=== PATIENT | male | born 1940 | race Caucasian/White ===

== ENCOUNTER 2016-11-13 07:40 | Emergency (ER) | payer OTHER ==
[~2016-11-13] VITALS: Ht 182.9 cm; Wt 108.0 kg
[~2016-11-13 07:40] MED LIST: AMIT10 PO; BACL10TA PO; BUSP10 PO; CALC600T34 PO; CETI10 PO; CYMB30CA PO; DOCU100T9 PO; FOLI1 PO; LOVA20TA PO; METH2.5 PO; NEUR600T PO; OMEP20CA5 PO; OXYC10TA8 PO; PRED5 PO; TAB-TAB PO; [UNRECOGNIZED DRUG - CODE]
[2016-11-13 07:52] VITALS: BP 158/93; PULSE 73; RESP 18; TEMP 98.1; O2SAT 98
[2016-11-13] MEDS ORDERED: PARO1TAB71 PO (08:03)
[2016-11-13] MEDS ORDERED: GABA600T PO (08:03)
[2016-11-13] MEDS ORDERED: METH2.5T PO (08:03)
[2016-11-13] MEDS ORDERED: GABA300C5 PO (08:03)
[2016-11-13] MEDS ORDERED: FENT50VI (08:03)
[2016-11-13] MEDS ORDERED: FOLI1TAB6 PO (08:03)
[2016-11-13] MEDS ORDERED: MIRA25TA PO (08:03)
[2016-11-13] MEDS ORDERED: OMEP20TA PO (08:03)
[2016-11-13] MEDS ORDERED: LOVA20TA PO (08:03)
[2016-11-13] MEDS ORDERED: BUSP10TA PO (08:03)
[2016-11-13] MEDS ORDERED: LIDOCAINE HCL 1% 30 ML VIAL INFIL ONE (08:15)
[2016-11-13] MEDS ORDERED: LIDOCAINE HCL 1% 50 ML VIAL INFIL ONE (08:15)
[2016-11-13] MEDS ORDERED: TETANUS/DIPHTHERIA TOXOID ADULT 0.5 ML VIAL IM ONE (08:15)
--- NOTE | 2016-11-13 08:17 | PD ---
HPI Chief Complaint: Fall Time Seen by Provider: 07:57 Travel History International Travel<30 days: No Contact w/Intl Traveler<30days: No Traveled to known affect area: No History of Present Illness HPI Patient is a 76-year-old male who presents to emergency room with complaints of lip laceration. Patient reports that he fell out of bed last night and reports that his lip hit the corner of his night stand causing a laceration. Reports that this event occurred around 2:30 AM in the morning. Reports that he was able to control the bleeding on his own. Patient currently is not on any blood thinners. Patient denies any headache or dizziness at this time. Patient with no other complaints. Tetanus is not up-to-date. PFSH Past Medical History Arthritis: Yes Anxiety: Yes Cancer: No Cardiovascular Problems: No High Cholesterol: Yes Diabetes: No Endocrine: No Gastrointestinal Disorders: Yes GERD: Yes Glaucoma: No Genitourinary: Yes Hepatitis: No Hiatal Hernia: No Hypertension: Yes Immune Disorder: No Implanted Vascular Access Dvce: Yes Kidney Stones: Yes Musculoskeletal: Yes (CHRONIC BACK PAIN) Neurologic: No Psychiatric: No Reproductive: No Respiratory: No Thyroid Disease: No Tetanus Vaccination: > 5 Years Past Surgical History Abdominal Surgery: Yes (ABDOMINAL PANNICULECTOMY) Body Medical Devices: HORACE EYE LENS; DIANA LEFT FEMUR Eye Surgery: Yes (HORACE CATARACT ) Joint Replacement: Yes (BILATERAL PARTIAL KNEE) Neurologic Surgery: Yes (LUMBAR LAMINECTOMY 1981) Pacemaker: No Thoracic Surgery: Yes (1982 - L3 AND L4 DISCS SHAVED) Other Surgery: Yes Social History Alcohol Use: Yes (WINE DAILY) Tobacco Use: No Substance Use: No Allergies-Medications (Allergen,Severity, Reaction): Coded Allergies: No Known Allergies (Verified , 11/13/16) Reported Meds & Prescriptions Reported Meds & Active Scripts Active Reported Myrbetriq (Mirabegron) 25 Mg Tab 25 Mg PO DAILY Gabapentin 300 Mg Cap 300 Mg PO HS Gabapentin 600 Mg Tab 600 Mg PO TID Methotrexate 2.5 Mg Tab 17.5 Mg PO Q7D Folic Acid 1 Mg Tablet 1 Tab PO DAILY Fentanyl 1,000 Mcg/20 ml Vial (Fentanyl Citrate/Pf) 50 Mcg/1 Ml Vial Paroxetine (Paroxetine HCl) 10 Mg Tab 10 Mg PO DAILY Buspirone (Buspirone HCl) 10 Mg Tab 10 Mg PO BID Lovastatin 20 Mg Tab 20 Mg PO DAILY Omeprazole 20 Mg Tab 20 Mg PO DAILY Review of Systems General / Constitutional: No: Fever Eyes: No: Visual changes HENT: No: Headaches Cardiovascular: No: Chest Pain or Discomfort Respiratory: No: Shortness of Breath Gastrointestinal: No: Abdominal Pain Genitourinary: No: Dysuria Musculoskeletal: No: Pain Skin: Positive Other (lip laceration), No Rash Neurologic: No: Weakness Psychiatric: No: Depression Endocrine: No: Polydipsia Hematologic/Lymphatic: No: Easy Bruising Physical Exam Narrative GENERAL: Mild distress SKIN: Focused skin assessment warm/dry. HEAD: Atraumatic. Normocephalic. EYES: Pupils equal and round. No scleral icterus. No injection or drainage. Patient with right-sided periorbital bruising, no periarticular bruising ENT: No nasal bleeding or discharge. Mucous membranes pink and moist. Patient with no bleeding from nares, patient with a through and through 1.5 cm lip laceration to his upper lips NECK: Trachea midline. No JVD. CARDIOVASCULAR: Regular rate and rhythm. No murmur appreciated. RESPIRATORY: No accessory muscle use. Clear to auscultation. Breath sounds equal bilaterally. GASTROINTESTINAL: Abdomen soft, non-tender, nondistended. Hepatic and splenic margins not palpable. MUSCULOSKELETAL: No obvious deformities. No clubbing. No cyanosis. No edema. NEUROLOGICAL: Awake and alert. No obvious cranial nerve deficits. Motor grossly within normal limits. Normal speech. PSYCHIATRIC: Appropriate mood and affect; insight and judgment normal. Data Data Last Documented VS Vital Signs Date Time Temp Pulse Resp B/P Pulse Ox O2 Delivery O2 Flow Rate FiO2 11/13/16 07:52 98.1 73 18 158/[address] Brain W/O Iv Contrast(Rout) (11/13/16 08:01) Ct Cerv Spine W/O Contrast (11/13/16 08:01) Ct Facial Bones W/O Iv Cont (11/13/16 08:01) Tetanus/Diphtheria Tox Adult (Tetanus/Di (11/13/16 08:15) ^ Irrigate (11/13/16 08:01) Lidocaine Pf 1% Inj (Xylocaine-Mpf 1% In (11/13/16 08:30) Cephalexin (Keflex) (11/13/16 09:45) MDM Medical Decision Making Medical Screen Exam Complete: Yes Emergency Medical Condition: Yes Interpretation(s) Vital Signs Date Time Temp Pulse Resp B/P Pulse Ox O2 Delivery O2 Flow Rate FiO2 11/13/16 07:52 98.1 73 18 158/93 98 Differential Diagnosis Lip laceration, intracranial hemorrhage, cervical spine fracture though unlikely , facial fractures Narrative Course 76-year-old female who presents to emergency room with complaints of lip laceration. Patient reports that he woke up from sleep after he fell out of bed and noticed bleeding to his lip. Reports that he must of hit his lip on the nightstand. Patient is currently not on any anticoagulants at this time. Plan to obtain ct of facial bone, head and neck. Will update tetanus and suture facial wound Last Impressions Maxillofacial CT 11/13/16800 Signed Impressions: Service Date/Time: Friday, November 13, 2016 08:13 - CONCLUSION: Negative for facial bone fracture. Brian Jones MD FACR Head CT 11/13/16800 Signed Impressions: Service Date/Time: Sunday, November 13, 2016 08:13 - CONCLUSION: 1. No acute intracranial abnormality. Edison Mccullough MD lip laceration repaired, he will return to PCP or to ER in 48 hours for wound check. Absorbable sutures were placed. He will return to ER if symptoms worsen or progress Procedures Procedure Narrative LACERATION LOCATION: upper lip LENGTH: 1.5 NUMBER OF STITCHES/SHI: 10 simple interrupted sutures REPAIR: The area of the laceration was prepped with Betadine and sterilely draped. The laceration was infiltrated with 1% Lidocaine. The wound was copiously irrigated and explored without evidence of foreign body, tendon injury or neurovascular injury. The wound was closed using simple interrupted sutures. This was a multiple layer repair. A sterile dressing was applied. The patient was advised to keep the dressing clean and dry. Patient tolerated the procedure well. I did use 5.0 chromic gut for the deep wound and inner mouth and 5.0 vicryl to the surface of the lip Diagnosis Primary Impression: Closed head injury Qualified Code: S09.90XA - Closed head injury, initial encounter Additional Impression: Lip laceration Qualified Code: S01.511A - Lip laceration, initial encounter Patient Instructions: Narcotic given in the ED Additional Instructions: Return to the emergency room or to primary care doctor in 2 days for wound check Return to ER if symptoms worsen or if you develop any signs of infection Please take all antibiotics as prescribed Please do not drink from a straw, do not drink hot soup/fluids Med/Other Pt SpecificInfo: Prescription(s) given Scripts Cephalexin (Keflex)500 Mg Thu593 Mg PO Q6H 7 Days Ref 0 Prov:Patricia Solis DO 11/13/16 Disposition: 01 DISCHARGE HOME Condition: Stable Patricia Solis DO Nov 13, 2016 08:17
[2016-11-13] MEDS ORDERED: LIDOCAINE HCL 1% PF 30 ML VIAL INFIL ONE (08:30)
--- NOTE | 2016-11-13 09:08 | RADHPO ---
EXAM DATE/TIME: 11/13/2016 08:13 [facility] COMPARISON: No previous studies available for comparison. INDICATIONS : Trauma. Fell out of bed this morning and hit his head and face. Cephalgia. Right facial pain. Righ t neck pain RADIATION DOSE: 25.71 CTDIvol (mGy) MEDICAL HISTORY : Hypertension. SURGICAL HISTORY : Dental implants. ENCOUNTER: Initial ACUITY: 1 day PAIN SCORE: 8/10 LOCATION: Right facial TECHNIQUE: Volumetric scanning of the facial bones was performed. Using automated exposure control and adjustme nt of the mA and/or kV according to patient size, radiation dose was kept as low as reasonably achiev able to obtain optimal diagnostic quality images. FINDINGS: ORBITS: The orbital and infraorbital osseous structures are intact. The retroconal structures have a normal configuration. No radiopaque foreign bodies are seen. NASAL BONE: The nasal bone and maxillary spine are intact ZYGOMATIC ARCHES: Symmetric without evidence of fracture. SINUSES: The maxillary, ethmoid and frontal sinuses are intact. No air-fluid levels seen. NASAL CAVITY: The nasal septum is intact and midline. The lacrimal ducts are intact. SOFT TISSUES: No radiopaque foreign bodies seen. No soft-tissue swelling is seen. INTRACRANIAL: No intracranial air seen. CRIBIFORM PLATE: Grossly intact. CONCLUSION: Negative for facial bone fracture. Brian Jones MD FACR on November 13, 2016 at 9:04 Board Certified Radiologist. This report was verified electronically.
--- NOTE | 2016-11-13 09:22 | RADHPO ---
EXAM DATE/TIME: 11/13/2016 08:13 [facility] COMPARISON: No previous studies available for comparison. INDICATIONS : Trauma. Fell out of bed this morning and hit his head and face. Cephalgia. Right facial pain. Righ t neck pain RADIATION DOSE: 26.50 CTDIvol (mGy) MEDICAL HISTORY : Hypertension. SURGICAL HISTORY : Dental implants. ENCOUNTER: Initial ACUITY: 1 day PAIN SCALE: 8/10 LOCATION: Right neck TECHNIQUE: Volumetric scanning of the cervical spine was performed. Multiplanar reconstructions in the sagittal, coronal and oblique axial planes were performed. Using automated exposure control and adjustment o f the mA and/or kV according to patient size, radiation dose was kept as low as reasonably achievable to obtain optimal diagnostic quality images. FINDINGS: There are extensive degenerative changes in the cervical spine with reversal of the cervical lordosis . There are degenerative changes at C1 and C2. Dens is intact. C2-C3: Moderate uncinate ridging is present with moderate left-sided neural foramina encroachment. C3-C4: Moderate uncinate ridging is present with moderate spinal stenosis. Neural foramina are adequate. C4-C5: There is mild spinal stenosis with minimal bilateral neural foraminal encroachment worse on the right than the left. C5-C6: Moderate uncinate ridging is present with bilateral neural foraminal encroachment and moderate spinal stenosis. C6-C7: Moderate uncinate ridging is present with moderate bilateral neural foraminal encroachment. C7-T1: The bony spinal canal is normal in size. No evidence of disc bulge or herniation. The neural forami na are bilaterally patent. Moderate calcifications are seen in both carotids. CONCLUSION: 1. Extensive degenerative changes. 2. Cervical spinal stenosis appears radiographically significant at C3-C4 and C5-C6. Brian Jones MD FACR on November 13, 2016 at 9:07 Board Certified Radiologist. This report was verified electronically.
--- NOTE | 2016-11-13 09:27 | RADHPO ---
EXAM DATE/TIME: 11/13/2016 08:13 [facility] COMPARISON: No previous studies available for comparison. INDICATIONS : Trauma. Fell out of bed this morning and hit his head and face. Cephalgia. Right facial pain. Righ t neck pain. RADIATION DOSE: 68.88 CTDIvol (mGy) MEDICAL HISTORY : Hypertension. SURGICAL HISTORY : Dental implants. ENCOUNTER: Initial ACUITY: 1 day PAIN SCALE: 8/10 LOCATION: cranial TECHNIQUE: Multiple contiguous axial images were obtained of the head. Using automated exposure control and adj ustment of the mA and/or kV according to patient size, radiation dose was kept as low as reasonably a chievable to obtain optimal diagnostic quality images. FINDINGS: CEREBRUM: The ventricles are normal for age. No evidence of midline shift, mass lesion, hemorrhage or acute in farction. No extra-axial fluid collections are seen. POSTERIOR FOSSA: The cerebellum and brainstem are intact. The 4th ventricle is midline. The cerebellopontine angle i s unremarkable. EXTRACRANIAL: The visualized portion of the orbits is intact. SKULL: The calvaria is intact. No evidence of skull fracture. CONCLUSION: 1. No acute intracranial abnormality. Edison Mccullough MD on November 13, 2016 at 8:52 Board Certified Radiologist. This report was verified electronically.
[2016-11-13] MEDS ORDERED: CEPH-460 PO (09:39)
[2016-11-13] MEDS ORDERED: CEPHALEXIN MONOHYDRATE 500 MG CAP PO ONE (09:45)
== END 2016-11-13 09:50 | disposition home or self-care (01) ==
LOC: PHEFT 07:40
DX: S01.511A Laceration without foreign body of lip, initial encounter (principal); W06.XXXA Fall from bed, initial encounter; Z23 Encounter for immunization
CPT/HCPCS: 12051; 70450; 70486; 72125; 90471; 90714

== ENCOUNTER 2017-01-25 15:58 | Observation (INO) | payer MEDICARE ==
[~2017-01-25] VITALS: Ht 182.9 cm; Wt 102.0 kg
[~2017-01-25 15:58] MED LIST changes: -AMIT10 PO; -BACL10TA PO; -BUSP10 PO; +BUSP10TA PO; -CALC600T34 PO; +CEPH-460 PO; -CETI10 PO; -CYMB30CA PO; -DOCU100T9 PO; +FENT50VI; -FOLI1 PO; +FOLI1TAB6 PO; +GABA300C5 PO; +GABA600T PO; -METH2.5 PO; +METH2.5T PO; +MIRA25TA PO; -NEUR600T PO; -OMEP20CA5 PO; +OMEP20TA PO; -OXYC10TA8 PO; +PARO1TAB71 PO; -PRED5 PO; -TAB-TAB PO; -[UNRECOGNIZED DRUG - CODE]
[2017-01-25 16:02] VITALS: BP 156/76; PULSE 92; RESP 18; TEMP 98; O2SAT 95
[2017-01-25 16:10] VITALS: BP 156/76; PULSE 90; RESP 18; TEMP 98; O2SAT 98
[2017-01-25] MEDS ORDERED: SODIUM CHLORIDE 0.9% FLUSH 10 ML FLUSH IVF PRN (16:15)
--- NOTE | 2017-01-25 16:38 | RADRPT ---
EXAM DATE/TIME: 01/25/2017 16:16 [facility] COMPARISON: No previous studies available for comparison. INDICATIONS : Chest pain. MEDICAL HISTORY : None. SURGICAL HISTORY : None. ENCOUNTER: Initial ACUITY: 1 day PAIN SCORE: 7/10 LOCATION: Chest, midline. FINDINGS: The lungs are clear without infiltrate, nodule, or mass. There is no appreciable pleural effusion fo r technique. Heart and mediastinum are unremarkable. CONCLUSION: No acute cardiopulmonary disease. Chano Galvez MD on January 25, 2017 at 16:36 Board Certified Radiologist. This report was verified electronically.
[2017-01-25] MEDS ORDERED: NITROGLYCERIN 2% OINT 1 GM PACKET TOP ONE (17:00)
[2017-01-25 17:17] LABS: AUTOMATED NEUTROPHIL # 4.3 TH/MM3 (1.8-7.7); BASOPHIL # 0.1 TH/MM3 (0-0.2); BASOPHIL % 0.8 % (0.0-2.0); EOSINOPHIL # 0.2 TH/MM3 (0-0.4); EOSINOPHIL % 2.6 % (0.0-4.0); HEMATOCRIT 31.5 % (39.0-51.0); HEMO FLAGS DIFF FINAL; LYMPH % 14.1 % (9.0-44.0); LYMPHOCYTE # 0.9 TH/MM3 (1.0-4.8); MEAN CELL VOLUME 104.6 FL (80.0-100.0); MEAN CORPUSCULAR HEMOGLOBIN 35.3 PG (27.0-34.0); MEAN CORPUSCULAR HGB CONC 33.8 % (32.0-36.0); MONO % 11.4 % (0.0-8.0); NEUT % 71.1 % (16.0-70.0); PLATELET COUNT 133 TH/MM3 (150-450); RED BLOOD COUNT 3.01 MIL/MM3 (4.50-5.90); RED CELL DISTRIBUTION WIDTH 15.5 % (11.6-17.2); WHITE BLOOD COUNT 6.1 TH/MM3 (4.0-11.0)
[2017-01-25 17:25] LABS: INTERNATIONAL NORMALIZED RATIO 0.9 RATIO; PROTHROMBIN TIME - PATIENT 10.3 SEC (9.8-11.6)
[2017-01-25 17:35] LABS: ALT (GPT) 15 U/L (12-78); ANION GAP 7 MEQ/L (5-15); AST (GOT) 17 U/L (15-37); BICARBONATE 28.4 MEQ/L (21.0-32.0); BLOOD UREA NITROGEN 25 MG/DL (7-18); CHLORIDE 109 MEQ/L (98-107); GLOMERULAR FILTRATION RATE 45 ML/MIN (>89); MAGNESIUM 1.6 MG/DL (1.5-2.5); POTASSIUM 3.6 MEQ/L (3.5-5.1); SODIUM (NA) 144 MEQ/L (136-145)
[2017-01-25 17:39] LABS: ALKALINE PHOSPHATASE 55 U/L (45-117); CREATINE KINASE 268 U/L (39-308); TOTAL BILIRUBIN ADULT 0.4 MG/DL (0.2-1.0)
--- NOTE | 2017-01-25 17:39 | PD ---
HPI Chief Complaint: Chest Pain Time Seen by Provider: 16:48 Travel History International Travel<30 days: No Contact w/Intl Traveler<30days: No Traveled to known affect area: No History of Present Illness HPI 76 y/o male presents with chest pain that started shortly prior to arrival. He was given aspirin and nitroglycerin without significant relief. He does not have history of cardiac history but states he had a stress test with Dr. Navarro who routinely sees his . He denies other concurrent complaints. Quality is pressure. Severity is moderate. Duration is one hour. He presents by ambulance. PFSH Past Medical History Arthritis: Yes Anxiety: Yes Cancer: No Cardiovascular Problems: No High Cholesterol: Yes Diabetes: No Endocrine: No Gastrointestinal Disorders: Yes GERD: Yes Glaucoma: No Genitourinary: Yes Hepatitis: No Hiatal Hernia: No Hypertension: Yes Immune Disorder: No Implanted Vascular Access Dvce: Yes Kidney Stones: Yes Medical other: Yes (GERD) Musculoskeletal: Yes (CHRONIC BACK PAIN, HAS PAIN PUMP) Neurologic: No Psychiatric: No Reproductive: No Respiratory: No Thyroid Disease: No Tetanus Vaccination: < 5 Years Influenza Vaccination: Yes ?: Not Past Surgical History Abdominal Surgery: Yes (ABDOMINAL PANNICULECTOMY) Body Medical Devices: HORACE EYE LENS; DIANA LEFT FEMUR Eye Surgery: Yes (HORACE CATARACT ) Joint Replacement: Yes (BILATERAL PARTIAL KNEE) Neurologic Surgery: Yes (LUMBAR LAMINECTOMY 1981) Pacemaker: No Thoracic Surgery: Yes (1982 - L3 AND L4 DISCS SHAVED) Tonsillectomy: Yes Other Surgery: Yes Social History Alcohol Use: Yes (WINE DAILY) Tobacco Use: No (QUIT 30 YEARS ) Substance Use: No Allergies-Medications (Allergen,Severity, Reaction): Coded Allergies: No Known Allergies (Verified , 11/13/16) Reported Meds & Prescriptions Reported Meds & Active Scripts Active Reported Myrbetriq (Mirabegron) 25 Mg Tab 25 Mg PO DAILY Gabapentin 300 Mg Cap 300 Mg PO HS Gabapentin 600 Mg Tab 600 Mg PO TID Methotrexate 2.5 Mg Tab 17.5 Mg PO Q7D Folic Acid 1 Mg Tablet 1 Tab PO DAILY Fentanyl 1,000 Mcg/20 ml Vial (Fentanyl Citrate/Pf) 50 Mcg/1 Ml Vial Paroxetine (Paroxetine HCl) 10 Mg Tab 10 Mg PO DAILY Buspirone (Buspirone HCl) 10 Mg Tab 10 Mg PO BID Lovastatin 20 Mg Tab 20 Mg PO DAILY Omeprazole 20 Mg Tab 20 Mg PO DAILY Review of Systems Except as stated in HPI: all other systems reviewed are Neg Physical Exam Narrative GENERAL: Well-nourished, well-developed patient. SKIN: Warm and dry. HEAD: Normocephalic and atraumatic. EYES: No injection or drainage. ENT: No nasal drainage noted. NECK: Supple, trachea midline. CARDIOVASCULAR: Regular rate and rhythm RESPIRATORY: Breath sounds equal bilaterally. No accessory muscle use. GASTROINTESTINAL: Abdomen soft, non-tender, nondistended. BACK: Nontender without obvious deformity. NEUROLOGICAL: Awake and alert. Motor and sensory grossly within normal limits. Normal speech. Data Data Last Documented VS Vital Signs Date Time Temp Pulse Resp B/P Pulse Ox O2 Delivery O2 Flow Rate FiO2 01/25/17 16:10 98 Room Air 01/25/17 16:10 98.0 90 18 156/76 Orders Electrocardiogram (01/25/17 16:04) B-Type Natriuretic Peptide (01/25/17 16:04) Ckmb (Isoenzyme) Profile (01/25/17 16:04) Complete Blood Count With Diff (01/25/17 16:04) Comprehensive Metabolic Panel (01/25/17 16:04) Magnesium (Mg) (01/25/17 16:04) Prothrombin Time / Inr (Pt) (01/25/17 16:04) Act Partial Throm Time (Ptt) (01/25/17 16:04) Troponin I (01/25/17 16:04) Lipase (01/25/17 16:04) Chest, Single Ap (01/25/17 16:04) Ecg Monitoring (01/25/17 16:04) Bilateral Bp Monitoring (01/25/17 16:04) Iv Access Insert/Monitor (01/25/17 16:04) Oximetry (01/25/17 16:04) Oxygen Administration (01/25/17 16:04) Sodium Chloride 0.9% Flush (Ns Flush) (01/25/17 16:15) Nitroglycerin 2% Oint (Nitroglycerin 2% (01/25/17 17:00) CKMB (01/25/17 16:20) CKMB% (01/25/17 16:20) Sodium Chlorid 0.9% 500 Ml Inj (Ns 500 M (01/25/17 17:45) Morphine Inj (Morphine Inj) (01/25/17 18:00) Labs Laboratory Tests Test 01/25/17 16:20 White Blood Count 6.1 TH/MM3 Red Blood Count 3.01 MIL/MM3 Hemoglobin 10.6 GM/DL Hematocrit 31.5 % Mean Corpuscular Volume 104.6 FL Mean Corpuscular Hemoglobin 35.3 PG Mean Corpuscular Hemoglobin 33.8 % Concent Red Cell Distribution Width 15.5 % Platelet Count 133 TH/MM3 Mean Platelet Volume 9.2 FL Neutrophils (%) (Auto) 71.1 % Lymphocytes (%) (Auto) 14.1 % Monocytes (%) (Auto) 11.4 % Eosinophils (%) (Auto) 2.6 % Basophils (%) (Auto) 0.8 % Neutrophils # (Auto) 4.3 TH/MM3 Lymphocytes # (Auto) 0.9 TH/MM3 Monocytes # (Auto) 0.7 TH/MM3 Eosinophils # (Auto) 0.2 TH/MM3 Basophils # (Auto) 0.1 TH/MM3 CBC Comment DIFF FINAL Differential Comment Prothrombin Time 10.3 SEC Prothromb Time International 0.9 RATIO Ratio Activated Partial 25.0 SEC Thromboplast Time Sodium Level 144 MEQ/L Potassium Level 3.6 MEQ/L Chloride Level 109 MEQ/L Carbon Dioxide Level 28.4 MEQ/L Anion Gap 7 MEQ/L Blood Urea Nitrogen 25 MG/DL Creatinine 1.52 MG/DL Estimat Glomerular Filtration 45 ML/MIN Rate Random Glucose 131 MG/DL Calcium Level 8.7 MG/DL Magnesium Level 1.6 MG/DL Total Bilirubin 0.4 MG/DL Aspartate Amino Transf 17 U/L (AST/SGOT) Alanine Aminotransferase 15 U/L (ALT/SGPT) Alkaline Phosphatase 55 U/L Total Creatine Kinase 268 U/L Creatine Kinase MB 1.1 NG/ML Troponin I LESS THAN 0.02 NG/ML B-Type Natriuretic Peptide 153 PG/ML Total Protein 6.1 GM/DL Albumin 3.2 GM/DL Lipase 115 U/L [facility] Medical Decision Making Medical Screen Exam Complete: Yes Emergency Medical Condition: Yes Medical Record Reviewed: Yes (past history confirmed) Interpretation(s) EKG is sinus rhythm at 90, right bundle branch block, limited with artifact but no ST elevation consecutively Last 24 hours Impressions Chest X-Ray 01/25/17 1604 Signed Impressions: Service Date/Time: Wednesday, January 25, 2017 16:16 - CONCLUSION: No acute cardiopulmonary disease. Chano Galvez MD CBC & BMP Diagram 01/25/17 16:20 Differential Diagnosis KS, cardiac, PE, musculoskeletal Narrative Course Will check blood work, chest x-ray, and dose with Nitropaste and reevaluate ed workup no acute, agrees to observation Physician Communication Physician Communication dr estrada states to place in [facility] Diagnosis Primary Impression: Chest pain Qualified Code: R07.9 - Chest pain, unspecified type Valencia Ferreira MD Jan 25, 2017 17:39
[2017-01-25] MEDS ORDERED: SODIUM CHLORID 0.9% 500 ML INJ 500 ML IV ONE (17:45)
[2017-01-25 17:51] LABS: CKMB 1.1 NG/ML (0.5-3.6)
[2017-01-25] MEDS ORDERED: MORPHINE SULFATE 4 MG/ML INJ IV PUSH ONE ×2 (18:00→19:15)
[2017-01-25] MEDS ORDERED: PERC10TA27 PO (18:16)
[2017-01-25] MEDS ORDERED: VITATAB11 PO (18:16)
[2017-01-25] MEDS ORDERED: CALC600T25 PO (18:16)
[2017-01-25] MEDS ORDERED: MULT-65 PO (18:16)
[2017-01-25] MEDS ORDERED: FERR325T20 PO (18:16)
[2017-01-25] MEDS ORDERED: STOO100C PO (18:16)
[2017-01-25] MEDS ORDERED: KETO2CRE TOPICAL (18:16)
[2017-01-25 18:31] VITALS: BP 164/86; PULSE 90; RESP 18; O2SAT 99
[2017-01-25 19:27] VITALS: BP 155/85; PULSE 106; RESP 20; O2SAT 96
[2017-01-25 20:53] VITALS: BP 173/87; PULSE 104; RESP 21; TEMP 99.9; O2SAT 95
[2017-01-25] MEDS ORDERED: MORPHINE SULFATE 4 MG/ML INJ IV PRN (22:30)
[2017-01-25] MEDS ORDERED: METOPROLOL TARTRATE 25 MG TAB PO SCH (22:30)
[2017-01-25] MEDS ORDERED: GABAPENTIN 300 MG CAP PO SCH (22:30)
[2017-01-25] MEDS ORDERED: ALUMINUM/MAGNESIUM/SIMETH 30 ML CUP PO PRN (22:45)
[2017-01-25] MEDS ORDERED: PANTOPRAZOLE SOD 40 MG DELAYED RELEASE TAB PO SCH (22:45)
[2017-01-25] MEDS: ACETAMINOPHEN 500 MG CPLT PO PRN (23:07)
[2017-01-25 23:52] VITALS: BP 127/59; PULSE 79; RESP 18; TEMP 98.5; O2SAT 95
[2017-01-26] MEDS: ACETAMINOPHEN/HYDROcodone 325 MG/7.5 MG TAB PO PRN ×2 (02:33→08:10)
[2017-01-26 03:57] VITALS: BP 100/59; PULSE 76; RESP 18; TEMP 98.2; O2SAT 95
[2017-01-26 05:44] VITALS: PULSE 75
[2017-01-26 07:51] VITALS: BP 140/70; PULSE 80; RESP 20; TEMP 96.8; O2SAT 96
[2017-01-26 08:10] VITALS: PULSE 79
[2017-01-26] MEDS ORDERED: PANTOPRAZOLE SOD 40 MG DELAYED RELEASE TAB PO SCH (09:00)
[2017-01-26] MEDS ORDERED: METOPROLOL TARTRATE 25 MG TAB PO SCH (09:00)
[2017-01-26] MEDS: GABAPENTIN 300 MG CAP PO SCH ×2 (09:07→12:30)
[2017-01-26] MEDS ORDERED: KETOROLAC TROMETHAMINE 30 MG/ML (IVP) VIAL ONE (10:37)
[2017-01-26] MEDS: ACETAMINOPHEN 500 MG CPLT PO PRN (12:30)
--- NOTE | 2017-01-26 13:03 | HHI.HP ---
[facility] Primary Care Physician Celestino Aguirre MD Chief Complaint Chest pain History of Present Illness Was is a 72-year-old male that presents to ED with the complaint of a chest discomfort began a little after eating a sandwich yesterday. States the discomfort is still there. Describes as a pressure. He is also been a little short of breath but believes is related to the discomfort. Denies nausea or diaphoresis. States his never had anything like this before. He does follow oral therapist. States he saw Dr. Navarro and had a normal chemical stress test about a month and a half ago. Denies recent illness. Denies fevers or chills. Review of Systems General: Patient denies fevers, chills recent, and recent travel HEENT: Patient denies headache, sore throat, difficulty swallowing. Cardiovascular: Has the chest discomfort as mentioned above. Denies sensation of heart beating rapidly or irregularly. No syncope. Denies diaphoresis. Respiratory: He was a little short of breath. Denies inspirational chest discomfort. Denies coughing wheezing or hemoptysis. GI: Patient denies nausea, vomiting, diarrhea, abdominal pain, bloody stools. Musculoskeletal: Patient denies joint pain or edema. Denies calf pain or edema. Neurovascular: Patient denies numbness, tingling, weakness in extremities. Denies headache. Endocrine: Denies polyuria and polydipsia. Hematologic: Denies easy bruising. Skin: Denies rash or itching. Past Family Social History Allergies: Coded Allergies: No Known Allergies (Verified , 11/13/16) Past Medical History Hyperlipidemia, rheumatoid arthritis, GERD, restless leg syndrome. Denies hypertension, diabetes, and known CAD. Past Surgical History Back surgery, bilateral knees, tonsillectomy, cataracts. Reported Medications Reported Meds & Active Scripts Active Reported Stool Softener (Docusate Sodium) 100 Mg Cap 100 Mg PO DAILY PRN Vitamin B Complex (B-Complex Vitamins) 1 Tab 1 Tab PO DAILY Multi-Vitamin Daily (Multiple Vitamin) 1 Tab Tab 1 Tab PO DAILY Calcium (Calcium Carbonate) 600 Mg Tab 600 Mg PO DAILY Ferosul (Ferrous Sulfate) 325 Mg Tablet 325 Mg PO DAILY Ketoconazole Topical 2% Cream 1 Applic TOPICAL DAILY PRN Percocet (Oxycodone-Acetaminophen) 10-325 mg Tab 1 Tab PO Q6H PRN Myrbetriq (Mirabegron) 25 Mg Tab 25 Mg PO DAILY Gabapentin 600 Mg Tab 600 Mg PO TID Methotrexate 2.5 Mg Tab 17.5 Mg PO Q7D Folic Acid 1 Mg Tablet 1 Tab PO DAILY Fentanyl 1,000 Mcg/20 ml Vial (Fentanyl Citrate/Pf) 50 Mcg/1 Ml Vial PAIN PUMP Paroxetine (Paroxetine HCl) 10 Mg Tab 10 Mg PO DAILY Buspirone (Buspirone HCl) 10 Mg Tab 10 Mg PO BID Lovastatin 20 Mg Tab 20 Mg PO DAILY Omeprazole 20 Mg Tab 20 Mg PO DAILY Active Ordered Medications Current Medications Medications (Trade) Dose Ordered Sig/Francine Route Start Time Stop Time Status Last Admin (NS Flush) 2 ml UNSCH PRN IVF 01/25/17 16:15 01/25/17 23:07 (Neurontin) 600 mg DAILY@,,21 PO 01/26/17 09:00 (Tylenol) 1,000 mg Q8H PRN PO 01/25/17 22:30 01/25/17 23:07 (Clarks 7.5-325 Mg) 1 tab Q6H PRN PO 01/25/17 22:30 01/26/17 02:33 (Morphine Inj) 2 mg Q1H PRN IV 01/25/17 22:30 01/25/17 23:06 (Lopressor) 25 mg BID PO 01/26/17 09:00 (Mag-Al Plus Susp Liq) 30 ml UNSCH PRN PO 01/25/17 22:45 (Protonix) 40 mg DAILY PO 01/26/17 09:00 Family History Denies family history of CAD. Social History Patient quit smoking cigarettes 30 years ago. Has on average 2 glass of wine a day. Denies illicit drugs. Physical Exam Vital Signs Vital Signs Date Time Temp Pulse Resp B/P (MAP) Pulse Ox O2 Delivery O2 Flow Rate FiO2 01/26/17 07:51 96.8 80 20 140/70 (93) 96 01/26/17 05:44 75 01/26/17 03:57 98.2 76 18 100/59 (73) 95 01/25/17 23:52 98.5 79 18 127/59 (81) 95 01/25/17 20:53 99.9 104 21 173/87 (115) 95 01/25/17 19:27 106 20 155/85 (108) 96 Nasal Cannula 2 8/19/17 18:31 90 18 164/86 (112) 99 Room Air 01/25/17 18:10 18 01/25/17 16:10 98 Room Air 01/25/17 16:10 98 Room Air 01/25/17 16:10 98.0 90 18 156/76 (102) 98 Room Air 01/25/17 16:10 89 18 96 Room Air 01/25/17 16:02 98.0 92 18 156/76 (102) 95 Physical Exam GENERAL: This is a well-nourished, well-developed patient, in no apparent distress. Patient speaks in clear complete sentences. Patient is pleasant. HEENT: Head is atraumatic and normocephalic. Neck is supple without lymphadenopathy and trachea is midline. No JVD or carotid bruits. CARDIOVASCULAR: Regular rate and rhythm without murmurs, gallops, or rubs. RESPIRATORY: Clear to auscultation. Breath sounds equal bilaterally. No wheezes , rales, or rhonchi. Chest wall is tender with even lightly palpating over the sternum which worsens his symptoms. No use of accessory muscles. GASTROINTESTINAL: Abdomen is nontender, nondistended. Abdomen soft. No obvious pulsatile mass or bruit. No CVA tenderness. Strong femoral pulses bilaterally. Normal bowel sounds in all quadrants. MUSCULOSKELETAL: Patient is moving upper and lower extremities freely. No calf tenderness or edema, no Homans sign. Strong pulses in upper and lower extremities. NEUROLOGICAL: Patient is alert and oriented. Cranial nerves 2-12 are grossly intact. No focal deficits and speech is clear. SKIN: No rash and turgor is normal. Laboratory Laboratory Tests Test 01/25/17 16:20 01/25/17 20:10 01/25/17 22:58 White Blood Count 6.1 Red Blood Count 3.01 Hemoglobin 10.6 Hematocrit 31.5 Mean Corpuscular Volume 104.6 Mean Corpuscular Hemoglobin 35.3 Mean Corpuscular Hemoglobin Concent 33.8 Red Cell Distribution Width 15.5 Platelet Count 133 Mean Platelet Volume 9.2 Neutrophils (%) (Auto) 71.1 Lymphocytes (%) (Auto) 14.1 Monocytes (%) (Auto) 11.4 Eosinophils (%) (Auto) 2.6 Basophils (%) (Auto) 0.8 Neutrophils # (Auto) 4.3 Lymphocytes # (Auto) 0.9 Monocytes # (Auto) 0.7 Eosinophils # (Auto) 0.2 Basophils # (Auto) 0.1 CBC Comment DIFF FINAL Differential Comment Prothrombin Time 10.3 Prothromb Time International Ratio 0.9 Activated Partial Thromboplast Time 25.0 Blood Urea Nitrogen 25 Creatinine 1.52 Random Glucose 131 Total Protein 6.1 Albumin 3.2 Calcium Level 8.7 Magnesium Level 1.6 Alkaline Phosphatase 55 Aspartate Amino Transf (AST/SGOT) 17 Alanine Aminotransferase (ALT/SGPT) 15 Total Bilirubin 0.4 Sodium Level 144 Potassium Level 3.6 Chloride Level 109 Carbon Dioxide Level 28.4 Anion Gap 7 Estimat Glomerular Filtration Rate 45 Total Creatine Kinase 268 Creatine Kinase MB 1.1 Troponin I LESS THAN 0.02 LESS THAN 0.02 LESS THAN 0.02 B-Type Natriuretic Peptide 153 Lipase 115 Result Diagram: 01/25/17 1620 01/25/17 1620 Imaging Last 48 hours Impressions Chest X-Ray 01/25/17 1604 Signed Impressions: Service Date/Time: Wednesday, January 25, 2017 16:16 - CONCLUSION: No acute cardiopulmonary disease. Chano Galvez MD Course EKGs have sinus rhythm with right bundle branch block. Caprini VTE Risk Assessment Caprini VTE Risk Assessment: Mod/High Risk (score >= 2) Caprini Risk Assessment Model Point Value = 1 Point Value = 2 Point Value = 3 Point Value = 5 Age 41-60 Minor surgery BMI > 25 kg/m2 Swollen legs Varicose veins or History of unexplained or recurrent spontaneous Oral contraceptives or hormone replacement Sepsis (< 1 month) Serious lung disease, including pneumonia (< 1 month) Abnormal pulmonary function Acute myocardial infarction Congestive heart failure (< 1 month) History of inflammatory bowel disease Medical patient at bed rest Age 61-74 Arthroscopic surgery Major open surgery (> 45 min) Laparoscopic surgery (> 45 min) Malignancy Confined to bed (> 72 hours) Immobilizing plaster cast Central venous access Age >= 75 History of VTE Family history of VTE Factor V Leiden Prothrombin [id number] Lupus anticoagulant Anticardiolipin antibodies Elevated serum homocysteine Heparin-induced thrombocytopenia Other congenital or acquired thrombophilia Stroke (< 1 month) Elective arthroplasty Hip, pelvis, or leg fracture Acute spinal cord injury (< 1 month) Prophylaxis Regimen Total Risk Factor Score Risk Level Prophylaxis Regimen 0-1 Low Early ambulation 2 Moderate Order ONE of the following: *Sequential Compression Device (SCD) *Heparin 5000 units SQ BID 3-4 Higher Order ONE of the following medications: *Heparin 5000 units SQ TID *Enoxaparin/Lovenox 40 mg SQ daily (WT < 150 kg, CrCl > 30 mL/min) *Enoxaparin/Lovenox 30 mg SQ daily (WT < 150 kg, CrCl > 10-29 mL/min) *Enoxaparin/Lovenox 30 mg SQ BID (WT < 150 kg, CrCl > 30 mL/min) AND/OR *Sequential Compression Device (SCD) 5 or more Highest Order ONE of the following medications: *Heparin 5000 units SQ TID (Preferred with Epidurals) *Enoxaparin/Lovenox 40 mg SQ daily (WT < 150 kg, CrCl > 30 mL/min) *Enoxaparin/Lovenox 30 mg SQ daily (WT < 150 kg, CrCl > 10-29 mL/min) *Enoxaparin/Lovenox 30 mg SQ BID (WT < 150 kg, CrCl > 30 mL/min) AND *Sequential Compression Device (SCD) Assessment and Plan Assessment and Plan * Chest pain: Patient's discomfort is atypical. Appears to be musculoskeletal in nature. He was seen by Dr. Short of cardiology in the chest pain center and will be discharged home at this time. He was given Toradol IV 1. He is follow back with his primary care physician and oral therapist. * Hyperlipidemia: Continue current medication. * Rheumatoid arthritis: Continue current medication. * Resident leg syndrome: Continue current medication. Patient is stable at this time. He is agreeable to this plan. Brandon Couch Jan 26, 2017 13:03
[2017-01-26] MEDS ORDERED: KETOROLAC TROMETHAMINE 30 MG/ML (IVP) VIAL IV PUSH ONE (15:00)
--- NOTE | 2017-01-26 16:28 | EKG ---
Date Performed: 01/25/2017 Time Performed: 22:23:39 PTAGE: 76 years EKG: SINUS TACHYCARDIA RIGHT BUNDLE BRANCH BLOCK LEFT ANTERIOR FASCICULAR BLOCK ABNORMAL ECG PREVIOUS TRACING : 01/25/2017 20.07 Since previous tracing, no significant change noted DOCTOR: Terrence Short Interpretating Date/Time 01/26/2017 16:28:08
--- NOTE | 2017-01-26 16:31 | EKG ---
Date Performed: 01/25/2017 Time Performed: 20:07:01 PTAGE: 76 years EKG: SINUS TACHYCARDIA POSSIBLE LEFT ATRIAL ENLARGEMENT MARKED LEFT AXIS DEVIATION RIGHT BUNDLE BRANCH BLOCK ABNORMAL ECG PREVIOUS TRACING : 01/25/2017 16.07 Since previous tracing, no significant change noted DOCTOR: Terrence Short Interpretating Date/Time 01/26/2017 16:29:47
--- NOTE | 2017-01-26 16:34 | EKG ---
Date Performed: 01/25/2017 Time Performed: 16:07:41 PTAGE: 76 years EKG: Sinus rhythm RIGHT BUNDLE BRANCH BLOCK LEFT ANTERIOR FASCICULAR BLOCK ABNORMAL ECG PREVIOUS TRACING : 07/26/2011 09.45 Since previous tracing, no significant change noted DOCTOR: Terrence Short Interpretating Date/Time 01/26/2017 16:33:12
[2017-01-27] MEDS ORDERED: TOLTERODINE TARTRATE 2 MG CAP LA PO SCH (09:00)
== END 2017-01-26 16:26 | disposition home or self-care (01) ==
LOC: NEPC 15:58 → NEDA 18:15 → NEPGCP 20:33
DX: R07.89 Other chest pain (principal); R06.02 Shortness of breath; E78.5 Hyperlipidemia, unspecified; K21.9 Gastro-esophageal reflux disease without esophagitis; I11.0 Hypertensive heart disease with heart failure; I50.9 Heart failure, unspecified; G25.81 Restless legs syndrome; I45.2 Bifascicular block; R00.0 Tachycardia, unspecified; M19.90 Unspecified osteoarthritis, unspecified site; I25.2 Old myocardial infarction; M06.9 Rheumatoid arthritis, unspecified; Z87.891 Personal history of nicotine dependence; Z79.899 Other long term (current) drug therapy
CPT/HCPCS: 71010; 80053; 82550; 82552; 83690; 83735; 83880; 84484; 85025; 85610; 85730; 93005; 96365; 96375; 96376; 99285; G0378; J1885; J2270; J7040

== ENCOUNTER 2017-08-22 08:02 | Observation (INO) | payer MEDICARE, MEDICAID ==
[2017-08-22] VITALS (7 sets, daily range): BP systolic 145–199; BP diastolic 78–109; PULSE 91–99; RESP 14–20; TEMP 96.7–98; O2SAT 96–98
[~2017-08-22] VITALS: Ht 182.9 cm; Wt 103.6 kg
[~2017-08-22 08:02] MED LIST changes: +CALC600T5 PO; -CEPH-460 PO; +DOCU1CAP66 PO; +FERR325T20 PO; -GABA300C5 PO; +KETO2CRE TOPICAL; +MULT-65 PO; -OMEP20TA PO; +OMEP20TA93 PO; +PARO10TA3 PO; -PARO1TAB71 PO; +PERC10TA27 PO; +VITATAB11 PO
--- NOTE | 2017-08-22 08:17 | PD ---
HPI Chief Complaint: left foot and right shoulder pain Time Seen by Provider: 08:07 Travel History International Travel<30 days: No Contact w/Intl Traveler<30days: No History of Present Illness HPI 77-year-old male states that he's been having left foot pain and swelling as well as right shoulder pain over the past week. He denies any trauma. He denies any other concurrent complaints. He states that he has a pain pump for management of his arthritis in his back which is chronic. He states that that is not helping his pain. He states he had follow-up with his primary doctor today but wanted to get checked out here as the pain was severe. Quality of pain is sharp. Pain is worse with movement. He denies other specific modifying factors. He denies any migration of the pain. PFSH Past Medical History Arthritis: Yes Anxiety: Yes Heart Rhythm Problems: No Cancer: No Cardiac Catheterization: No Cardiovascular Problems: No High Cholesterol: No Congestive Heart Failure: No Diabetes: No Endocrine: No Gastrointestinal Disorders: Yes GERD: Yes Glaucoma: No Genitourinary: Yes Hepatitis: No Hiatal Hernia: No Hypertension: Yes Immune Disorder: No Implanted Vascular Access Dvce: Yes Kidney Stones: Yes Musculoskeletal: Yes (CHRONIC BACK PAIN, HAS PAIN PUMP) Neurologic: No Psychiatric: No Reproductive: No Respiratory: No Thyroid Disease: No Past Surgical History Abdominal Surgery: Yes (ABDOMINAL PANNICULECTOMY) Body Medical Devices: HORACE EYE LENS; DIANA LEFT FEMUR Coronary Artery Bypass Graft: No Eye Surgery: Yes (HORACE CATARACT ) Joint Replacement: Yes (BILATERAL PARTIAL KNEE) Neurologic Surgery: Yes (LUMBAR LAMINECTOMY 1981) Pacemaker: No Thoracic Surgery: Yes (1982 - L3 AND L4 DISCS SHAVED) Tonsillectomy: Yes Other Surgery: Yes Social History Alcohol Use: Yes (WINE DAILY) Tobacco Use: No (QUIT 30 YEARS ) Substance Use: No Allergies-Medications (Allergen,Severity, Reaction): Coded Allergies: morphine (Verified Adverse Reaction, Severe, GI UPSET, 08/22/17) Reported Meds & Prescriptions Reported Meds & Active Scripts Active Reported Stool Softener (Docusate Sodium) 100 Mg Cap 100 Mg PO DAILY PRN Vitamin B Complex (B-Complex Vitamins) 1 Tab 1 Tab PO DAILY Multi-Vitamin Daily (Multiple Vitamin) 1 Tab Tab 1 Tab PO DAILY Calcium (Calcium Carbonate) 600 Mg Tab 600 Mg PO DAILY Ferosul (Ferrous Sulfate) 325 Mg Tablet 325 Mg PO DAILY Ketoconazole Topical 2% Cream 1 Applic TOPICAL DAILY PRN Myrbetriq (Mirabegron) 25 Mg Tab 25 Mg PO DAILY Gabapentin 600 Mg Tab 600 Mg PO TID Folic Acid 1 Mg Tablet 1 Tab PO DAILY Fentanyl 1,000 Mcg/20 ml Vial (Fentanyl Citrate/Pf) 50 Mcg/1 Ml Vial PAIN PUMP Paroxetine (Paroxetine HCl) 10 Mg Tab 10 Mg PO DAILY Buspirone (Buspirone HCl) 10 Mg Tab 10 Mg PO BID Lovastatin 20 Mg Tab 40 Mg PO DAILY Omeprazole 20 Mg Tab 20 Mg PO DAILY Review of Systems Except as stated in HPI: all other systems reviewed are Neg Physical Exam Narrative GENERAL: 77-year-old male who appears uncomfortable SKIN: Focused skin assessment warm/dry. HEAD: Atraumatic. Normocephalic. EYES: No scleral icterus. No injection or drainage. ENT: No nasal bleeding or discharge. Mucous membranes pink and moist. NECK: Trachea midline. CARDIOVASCULAR: Regular rate and rhythm. RESPIRATORY: No accessory muscle use. Clear to auscultation. Breath sounds equal bilaterally. GASTROINTESTINAL: Abdomen soft, non-tender, nondistended. MUSCULOSKELETAL: No obvious deformities. No clubbing. No cyanosis. Pain with palpation of left foot with moderate swelling over foot, no pain with other joints except right shoulder with palpation, neurovascularly intact, no lacerations over, compartments soft. NEUROLOGICAL: Awake and alert. No obvious cranial nerve deficits. Moves all extremities with good strength. Normal speech Data Data Last Documented VS Vital Signs Date Time Temp Pulse Resp B/P (MAP) Pulse Ox O2 Delivery O2 Flow Rate FiO2 08/22/17 10:05 18 08/22/17 09:45 98 180/88 (118) 98 Room Air 08/22/17 08:10 98.0 Orders Orders Foot, Complete ([id number]) (08/22/17 ) Shoulder, Complete (>2vws) (08/22/17 ) Us Leg Venous Doppler (08/22/17 ) Complete Blood Count With Diff (08/22/17 08:10) Basic Metabolic Panel (Bmp) (08/22/17 08:10) Iv Access Insert/Monitor (08/22/17 08:10) Ecg Monitoring (08/22/17 08:10) Oximetry (08/22/17 08:10) Fentanyl Inj (Fentanyl Inj) (08/22/17 08:30) Fentanyl Inj (Fentanyl Inj) (08/22/17 09:45) Admit Order (Ed Use Only) (08/22/17 10:42) Labs Laboratory Tests Test 08/22/17 08:30 White Blood Count 10.8 TH/MM3 Red Blood Count 3.45 MIL/MM3 Hemoglobin 11.6 GM/DL Hematocrit 34.0 % Mean Corpuscular Volume 98.7 FL Mean Corpuscular Hemoglobin 33.5 PG Mean Corpuscular Hemoglobin Concent 34.0 % Red Cell Distribution Width 11.6 % Platelet Count 222 TH/MM3 Mean Platelet Volume 8.0 FL Neutrophils (%) (Auto) 75.0 % Lymphocytes (%) (Auto) 12.1 % Monocytes (%) (Auto) 10.7 % Eosinophils (%) (Auto) 0.9 % Basophils (%) (Auto) 1.3 % Neutrophils # (Auto) 8.1 TH/MM3 Lymphocytes # (Auto) 1.3 TH/MM3 Monocytes # (Auto) 1.2 TH/MM3 Eosinophils # (Auto) 0.1 TH/MM3 Basophils # (Auto) 0.1 TH/MM3 CBC Comment DIFF FINAL Differential Comment Blood Urea Nitrogen 14 MG/DL Creatinine 1.10 MG/DL Random Glucose 89 MG/DL Calcium Level 9.1 MG/DL Sodium Level 138 MEQ/L Potassium Level 4.1 MEQ/L Chloride Level 103 MEQ/L Carbon Dioxide Level 27.2 MEQ/L Anion Gap 8 MEQ/L Estimat Glomerular Filtration Rate 65 ML/MIN MDM Medical Decision Making Medical Screen Exam Complete: Yes Emergency Medical Condition: Yes Medical Record Reviewed: Yes (past history confirmed) Interpretation(s) CBC & BMP Diagram 08/22/17 08:30 Calcium Level 9.1 Last 24 hours Impressions Lower Extremity Ultrasound 08/22/17 0000 Signed Impressions: Service Date/Time: Tuesday, August 22, 2017 08:57 - CONCLUSION: No evidence of deep venous thrombosis within the left lower extremity. Wander Aguayo MD Foot X-Ray 08/22/17 0000 Signed Impressions: Service Date/Time: Tuesday, August 22, 2017 08:41 - CONCLUSION: 1. No acute bony fracture identified. Alignment is anatomic. Will Jones MD Differential Diagnosis Fracture, DVT, arthritis Narrative Course Will check blood work, x-ray, ultrasound and reevaluate after fentanyl ed workup no acute, patient states pain is limiting his walking and he is afraid he is going to fall Will give a second dose of fentanyl and reevaluate Patient still unable to ambulate and he states he does not feel comfortable going home. We'll discuss with hospitalist for observation for intractable pain Physician Communication Physician Communication dr santana agrees to admit Diagnosis Primary Impression: Left foot pain Additional Impression: Right shoulder pain Qualified Codes: M25.511 - Pain in right shoulder Admitting Information Admitting Physician Requests: Observation Valencia Ferreira MD Aug 22, 2017 08:17
[2017-08-22 08:42] LABS: AUTOMATED NEUTROPHIL # 8.1 TH/MM3 (1.8-7.7); BASOPHIL # 0.1 TH/MM3 (0-0.2); BASOPHIL % 1.3 % (0.0-2.0); EOSINOPHIL # 0.1 TH/MM3 (0-0.4); EOSINOPHIL % 0.9 % (0.0-4.0); HEMOGLOBIN 11.6 GM/DL (13.0-17.0); LYMPH % 12.1 % (9.0-44.0); LYMPHOCYTE # 1.3 TH/MM3 (1.0-4.8); MEAN CELL VOLUME 98.7 FL (80.0-100.0); MEAN CORPUSCULAR HEMOGLOBIN 33.5 PG (27.0-34.0); MONO % 10.7 % (0.0-8.0); MONOCYTE # 1.2 TH/MM3 (0-0.9); PLATELET COUNT 222 TH/MM3 (150-450); RED BLOOD COUNT 3.45 MIL/MM3 (4.50-5.90); RED CELL DISTRIBUTION WIDTH 11.6 % (11.6-17.2); WHITE BLOOD COUNT 10.8 TH/MM3 (4.0-11.0)
[2017-08-22 08:53] LABS: BICARBONATE 27.2 MEQ/L (21.0-32.0); CALCIUM 9.1 MG/DL (8.5-10.1)
[2017-08-22 08:57] LABS: CREATININE 1.1 MG/DL (0.60-1.30)
--- NOTE | 2017-08-22 09:12 | RADRPT ---
EXAM DATE/TIME: 08/22/2017 08:57 [facility] COMPARISON: No previous studies available for comparison. INDICATIONS : Left leg pain and swelling. MEDICAL HISTORY : GERD. HTN. Kidney stones. SURGICAL HISTORY : Tonsillectomy. Panniculectomy. Lumbar laminectomy. Left knee surgery. Bilateral knee partial re placement. ENCOUNTER: Initial ACUITY: 1 day PAIN SCORE: 4/10 LOCATION: Left leg. TECHNIQUE: Venous ultrasound of the leg was performed from the inguinal ligament to the proximal calf. Real-sanam e, color Doppler and spectral tracing, compression and augmentation techniques were used. FINDINGS: There is normal compressibility of the deep venous system from the inguinal region to the proximal ca lf. No echogenic clot is seen in the lumen of the common femoral, femoral, popliteal, and posterior tibial veins. There is a normal response of the venous system to proximal and distal augmentation an d respiration. CONCLUSION: No evidence of deep venous thrombosis within the left lower extremity. Wander Aguayo MD on August 22, 2017 at 9:10 Board Certified Radiologist. This report was verified electronically.
--- NOTE | 2017-08-22 09:29 | RADRPT ---
EXAM DATE/TIME: 08/22/2017 08:41 [facility] COMPARISON: CHEST SINGLE AP, January 25, 2017, 16:16. INDICATIONS : Left foot pain and swelling with no known injury MEDICAL HISTORY : Hypertension. SURGICAL HISTORY : None. ENCOUNTER: Initial ACUITY: 1 week PAIN SCORE: 4/10 LOCATION: Left foot FINDINGS: Three view examination of the left foot demonstrates no dislocation, or fracture. There is mild diffu se soft tissue swelling. The tarsal bones appear intact. The interphalangeal and metatarsophalange al joints are intact. The calcaneus is intact. Bony mineralization is normal. CONCLUSION: 1. No acute bony fracture identified. Alignment is anatomic. Will Jones MD on August 22, 2017 at 9:24 Board Certified Radiologist. This report was verified electronically.
--- NOTE | 2017-08-22 09:30 | RADRPT ---
EXAM DATE/TIME: 08/22/2017 08:41 [facility] COMPARISON: CHEST SINGLE AP, January 25, 2017, 16:16. INDICATIONS : Right shoulder pain with no known injury MEDICAL HISTORY : Hypertension. SURGICAL HISTORY : None. ENCOUNTER: Initial ACUITY: 1 week PAIN SCORE: 6/10 LOCATION: Right shoulder FINDINGS: The humeral head is well situated within the glenoid fossa. There are mild degenerative changes in th e acromioclavicular joint. No acute fracture seen. The portion of the lung apex visualized are clear. CONCLUSION: 1. Mild degenerative changes. No acute abnormality. Will Jones MD on August 22, 2017 at 9:26 Board Certified Radiologist. This report was verified electronically.
[2017-08-22] MEDS ORDERED: ONDANSETRON HCL 4 MG/2 ML VIAL IVP PRN (11:00)
[2017-08-22] MEDS ORDERED: ACETAMINOPHEN/HYDROcodone 325 MG/10 MG TAB PO PRN (11:00)
[2017-08-22] MEDS ORDERED: ACETAMINOPHEN/HYDROcodone 325 MG/5 MG TAB PO PRN (11:00)
[2017-08-22] MEDS ORDERED: NALOXONE HCL 0.4 MG/ML AMP IV PUSH PRN (11:00)
[2017-08-22] MEDS ORDERED: SODIUM CHLORIDE 0.9% FLUSH 10 ML FLUSH IV FLUSH PRN (11:00)
[2017-08-22] MEDS: ENOXAPARIN SODIUM 40 MG/0.4 ML SYRINGE SQ SCH (11:20)
[2017-08-22] MEDS ORDERED: DOCUSATE SODIUM 100 MG CAP PO PRN (14:00)
[2017-08-22] MEDS ORDERED: PILL SPLITTER OTHER PRN (14:30)
[2017-08-22] MEDS: FERROUS SULFATE 325 MG (65 MG ELEMENTAL IRON) TAB PO SCH (15:51)
[2017-08-22] MEDS: FOLIC ACID 1 MG TAB PO SCH (15:51)
[2017-08-22] MEDS: PANTOPRAZOLE SOD 20 MG DELAYED RELEASE TAB PO SCH (15:51)
[2017-08-22] MEDS: PARoxetine HCL 20 MG TAB PO SCH (15:52)
[2017-08-22] MEDS: CALCIUM CARBONATE 1.25 GM (CA 500 MG) TAB PO SCH (15:53)
[2017-08-22] MEDS: PRAVASTATIN SOD 40 MG TAB PO SCH (15:53)
[2017-08-22] MEDS: busPIRone HCL 10 MG TAB PO SCH ×2 (15:53→20:05)
[2017-08-22] MEDS: GABAPENTIN 300 MG CAP PO SCH (17:53)
[2017-08-22] MEDS ORDERED: oxyCODONE/ACETAMINOPHEN 5 MG/325 MG TAB PO PRN (19:15)
[2017-08-22] MEDS: SODIUM CHLORIDE 0.9% FLUSH 10 ML FLUSH IV FLUSH SCH (19:45)
[2017-08-22] MEDS: oxyCODONE/ACETAMINOPHEN 10 MG/325 MG TAB PO PRN (20:05)
--- NOTE | 2017-08-22 21:31 | HHI.HP ---
[facility] [place] Celestino Aguirre MD Admission Diagnosis intractable pain Diagnoses: Travel History International Travel<30 Days: No Contact w/Intl Traveler <30 Da: No Traveled to Known Affected Are: No History of Present Illness Mr. Hallman is a 77 year old male. At baseline he has chronic pain in several joints, but most severely in his right shoulder. He has been pain controlled with an implanted fentanyl pump. In the past week he has become concerned that the implant may be malfunctioning and in the past two days, he ceased to feel any pain relief. No history of pain treatment abuse is suspected. His pain pump appears to have failed. An equivalent PO treatment will be needed prior to discharge, and he will need to follow with his pain management physician to revise his pain pump. No other complaints. Review of Systems Constitutional: DENIES: Fatigue, Fever, Weight loss, Night Sweats Eyes: DENIES: Blurred vision, Diplopia, Eye inflammation, Eye pain Respiratory: DENIES: Cough, Wheezing, Shortness of breath Cardiovascular: DENIES: Chest pain, Palpitations, Syncope, Dyspnea on Exertion Gastrointestinal: DENIES: Abdominal pain, Black stools, Constipation Musculoskeletal: COMPLAINS OF: Joint pain, Muscle aches, Stiffness, Joint Swelling, Back pain, Neck pain Integumentary: DENIES: Abnormal pigmentation, Nail changes, Pruritus, Rash Hematologic/lymphatic: DENIES: Bruising, Lymphadenopathy Immunologic/allergic: DENIES: Eczema, Urticaria Neurologic: DENIES: Abnormal gait, Headache, Paresthesias Psychiatric: DENIES: Anxiety, Confusion, Hallucinations Past Family Social History Past Medical History Osteoarthritis Chronic Back/Shoulder Pain GERD HTN Nephrolithiasis history Past Surgical History Panniculectomy Left Femur Gian Eye Lens Surgery Bilateral Cateract repair Lumbar Laminectomy L3/L4 Disc Shaves Bilateral Knee Repairs Tonsilectomy Pain Pump Implant Reported Medications Reported Meds & Active Scripts Active Reported Stool Softener (Docusate Sodium) 100 Mg Cap 100 Mg PO DAILY PRN Vitamin B Complex (B-Complex Vitamins) 1 Tab 1 Tab PO DAILY Multi-Vitamin Daily (Multiple Vitamin) 1 Tab Tab 1 Tab PO DAILY Calcium (Calcium Carbonate) 600 Mg Tab 600 Mg PO DAILY Ferosul (Ferrous Sulfate) 325 Mg Tablet 325 Mg PO DAILY Ketoconazole Topical 2% Cream 1 Applic TOPICAL DAILY PRN Myrbetriq (Mirabegron) 25 Mg Tab 25 Mg PO DAILY Gabapentin 600 Mg Tab 600 Mg PO TID Folic Acid 1 Mg Tablet 1 Tab PO DAILY Fentanyl 1,000 Mcg/20 ml Vial (Fentanyl Citrate/Pf) 50 Mcg/1 Ml Vial PAIN PUMP Paroxetine (Paroxetine HCl) 10 Mg Tab 10 Mg PO DAILY Buspirone (Buspirone HCl) 10 Mg Tab 10 Mg PO BID Lovastatin 20 Mg Tab 40 Mg PO DAILY Omeprazole 20 Mg Tab 20 Mg PO DAILY Allergies: Coded Allergies: morphine (Verified Adverse Reaction, Severe, GI UPSET, 08/22/17) Active Ordered Medications Administered Medications Medications (Trade) Dose Ordered Sig/Francine Route PRN Reason Start Time Stop Time Status Last Admin Dose Admin Enoxaparin Sodium (Lovenox Inj) 40 mg Q24H SQ 08/22/17 12:00 08/22/17 11:20 Buspirone HCl (Buspar) 10 mg BID PO 08/22/17 14:30 08/22/17 20:05 Docusate Sodium (Colace) 100 mg DAILY PRN PO CONSTIPATION 08/22/17 14:00 08/22/17 15:50 Ferrous Sulfate (Ferrous Sulfate) 325 mg DAILY PO 08/22/17 14:30 08/22/17 15:51 Folic Acid (Folate) 1 mg DAILY PO 08/22/17 14:30 08/22/17 15:51 Gabapentin (Neurontin) 600 mg TID PO 08/22/17 18:00 08/22/17 17:53 Pravastatin Sodium (Pravachol) 40 mg DAILY PO 08/22/17 14:30 08/22/17 15:53 Calcium Carbonate (Oscal) 500 mg DAILY PO 08/22/17 14:30 08/22/17 15:53 Pantoprazole Sodium (Protonix) 20 mg DAILY PO 08/22/17 14:30 08/22/17 15:51 Paroxetine HCl (Paxil) 10 mg DAILY PO 08/22/17 14:30 08/22/17 15:52 Oxycodone/ Acetaminophen (Percocet 10-325 Mg) 1 tab Q4H PRN PO Pain 7 to 10 08/22/17 19:15 08/22/17 20:05 Family History CVA in father Social History Alcohol Use: Yes (WINE DAILY) Tobacco Use: No (QUIT 30 YEARS ) Substance Use: No Physical Exam Vital Signs Vital Signs Date Time Temp Pulse Resp B/P (MAP) Pulse Ox O2 Delivery O2 Flow Rate FiO2 08/22/17 20:00 97.5 99 20 145/93 (110) 98 08/22/17 16:00 96.7 97 18 162/78 (106) 96 08/22/17 12:00 98.0 91 18 178/85 (116) 96 08/22/17 11:40 91 18 172/104 (126) 98 Room Air 08/22/17 11:40 08/22/17 10:45 16 08/22/17 10:05 18 08/22/17 09:45 98 18 180/88 (118) 98 Room Air 08/22/17 08:15 98 Room Air 08/22/17 08:10 98.0 96 14 199/109 (139) 98 Physical Exam GENERAL: This is a well-nourished, well-developed patient, in no apparent distress. SKIN: No rashes, ecchymoses or lesions. Cool and dry. HEAD: Atraumatic. Normocephalic. No temporal or scalp tenderness. EYES: Pupils equal round and reactive. Extraocular motions intact. No scleral icterus. No injection or drainage. ENT: Nose without bleeding, purulent drainage or septal hematoma. Throat without erythema, tonsillar hypertrophy or exudate. Uvula midline. Airway patent. NECK: Trachea midline. No JVD or lymphadenopathy. Supple, nontender, no meningeal signs. CARDIOVASCULAR: Regular rate and rhythm without murmurs, gallops, or rubs. RESPIRATORY: Clear to auscultation. Breath sounds equal bilaterally. No wheezes , rales, or rhonchi. GASTROINTESTINAL: Abdomen soft, non-tender, nondistended. No hepato-splenomegaly , or palpable masses. No guarding. MUSCULOSKELETAL: Extremities without clubbing, cyanosis, or edema. No joint tenderness, effusion, or edema noted. No calf tenderness. Negative Homans sign bilaterally. NEUROLOGICAL: Awake and alert. Cranial nerves II through XII intact. Motor and sensory grossly within normal limits. Five out of 5 muscle strength in all muscle groups. Normal speech. Laboratory Laboratory Tests Test 08/22/17 08:30 White Blood Count 10.8 Red Blood Count 3.45 Hemoglobin 11.6 Hematocrit 34.0 Mean Corpuscular Volume 98.7 Mean Corpuscular Hemoglobin 33.5 Mean Corpuscular Hemoglobin Concent 34.0 Red Cell Distribution Width 11.6 Platelet Count 222 Mean Platelet Volume 8.0 Neutrophils (%) (Auto) 75.0 Lymphocytes (%) (Auto) 12.1 Monocytes (%) (Auto) 10.7 Eosinophils (%) (Auto) 0.9 Basophils (%) (Auto) 1.3 Neutrophils # (Auto) 8.1 Lymphocytes # (Auto) 1.3 Monocytes # (Auto) 1.2 Eosinophils # (Auto) 0.1 Basophils # (Auto) 0.1 CBC Comment DIFF FINAL Differential Comment Blood Urea Nitrogen 14 Creatinine 1.10 Random Glucose 89 Calcium Level 9.1 Sodium Level 138 Potassium Level 4.1 Chloride Level 103 Carbon Dioxide Level 27.2 Anion Gap 8 Estimat Glomerular Filtration Rate 65 Result Diagram: 08/22/1782908/22/17829 Caprini VTE Risk Assessment Caprini VTE Risk Assessment: No/Low Risk (score <= 1) Caprini Risk Assessment Model Point Value = 1 Point Value = 2 Point Value = 3 Point Value = 5 Age 41-60 Minor surgery BMI > 25 kg/m2 Swollen legs Varicose veins or History of unexplained or recurrent spontaneous Oral contraceptives or hormone replacement Sepsis (< 1 month) Serious lung disease, including pneumonia (< 1 month) Abnormal pulmonary function Acute myocardial infarction Congestive heart failure (< 1 month) History of inflammatory bowel disease Medical patient at bed rest Age 61-74 Arthroscopic surgery Major open surgery (> 45 min) Laparoscopic surgery (> 45 min) Malignancy Confined to bed (> 72 hours) Immobilizing plaster cast Central venous access Age >= 75 History of VTE Family history of VTE Factor V Leiden Prothrombin [id number] Lupus anticoagulant Anticardiolipin antibodies Elevated serum homocysteine Heparin-induced thrombocytopenia Other congenital or acquired thrombophilia Stroke (< 1 month) Elective arthroplasty Hip, pelvis, or leg fracture Acute spinal cord injury (< 1 month) Prophylaxis Regimen Total Risk Factor Score Risk Level Prophylaxis Regimen 0-1 Low Early ambulation 2 Moderate Order ONE of the following: *Sequential Compression Device (SCD) *Heparin 5000 units SQ BID 3-4 Higher Order ONE of the following medications: *Heparin 5000 units SQ TID *Enoxaparin/Lovenox 40 mg SQ daily (WT < 150 kg, CrCl > 30 mL/min) *Enoxaparin/Lovenox 30 mg SQ daily (WT < 150 kg, CrCl > 10-29 mL/min) *Enoxaparin/Lovenox 30 mg SQ BID (WT < 150 kg, CrCl > 30 mL/min) AND/OR *Sequential Compression Device (SCD) 5 or more Highest Order ONE of the following medications: *Heparin 5000 units SQ TID (Preferred with Epidurals) *Enoxaparin/Lovenox 40 mg SQ daily (WT < 150 kg, CrCl > 30 mL/min) *Enoxaparin/Lovenox 30 mg SQ daily (WT < 150 kg, CrCl > 10-29 mL/min) *Enoxaparin/Lovenox 30 mg SQ BID (WT < 150 kg, CrCl > 30 mL/min) AND *Sequential Compression Device (SCD) Assessment and Plan Problem List: (1) Left foot pain ICD Code: M79.672 - Pain in left foot Status: Acute (2) Right shoulder pain ICD Code: M25.511 - Pain in right shoulder Status: Acute Assessment and Plan 77 Year old male admitted due to intractable pain secondary to pain pump failure Intractable Pain Pain pump failure Follow pain levels Substitute and titrate PO pain treatments Plan for discharge once pain controlled To follow up with pain management physician(s) as an outpatient Osteoarthritis Chronic Back/Shoulder Pain GERD HTN Nephrolithiasis history No change to baseline treatments Follow DVT Prophylaxis lovenox Problem Qualifiers (1) Right shoulder pain: Qualified Codes: M25.511 - Pain in right shoulder Will Brooks MD Aug 22, 2017 21:31
[2017-08-23] VITALS: BP 169/87; PULSE 89; RESP 20; TEMP 98.8; O2SAT 93
[2017-08-23] MEDS: oxyCODONE/ACETAMINOPHEN 10 MG/325 MG TAB PO PRN ×6 (00:45→21:54)
[2017-08-23 07:30] LABS: BASOPHIL % 0.4 % (0.0-2.0); EOSINOPHIL # 0.2 TH/MM3 (0-0.4); EOSINOPHIL % 2.8 % (0.0-4.0); HEMATOCRIT 31.6 % (39.0-51.0); HEMOGLOBIN 10.5 GM/DL (13.0-17.0); LYMPHOCYTE # 1.2 TH/MM3 (1.0-4.8); MEAN CELL VOLUME 98.7 FL (80.0-100.0); MEAN CORPUSCULAR HEMOGLOBIN 32.7 PG (27.0-34.0); MEAN CORPUSCULAR HGB CONC 33.1 % (32.0-36.0); MEAN PLATELET VOLUME 8.1 FL (7.0-11.0); MONOCYTE # 0.9 TH/MM3 (0-0.9); NEUT % 71.8 % (16.0-70.0); PLATELET COUNT 224 TH/MM3 (150-450); RED CELL DISTRIBUTION WIDTH 11.9 % (11.6-17.2); WHITE BLOOD COUNT 8.3 TH/MM3 (4.0-11.0)
[2017-08-23 07:44] LABS: CHLORIDE 104 MEQ/L (98-107); SODIUM (NA) 139 MEQ/L (136-145)
[2017-08-23 07:48] LABS: ALBUMIN 2.4 GM/DL (3.4-5.0); BICARBONATE 27.1 MEQ/L (21.0-32.0); CALCIUM 8.8 MG/DL (8.5-10.1); GLUCOSE,RANDOM 78 MG/DL (74-106)
[2017-08-23 07:49] LABS: BLOOD UREA NITROGEN 14 MG/DL (7-18)
[2017-08-23 07:51] LABS: AST (GOT) 12 U/L (15-37)
[2017-08-23 07:52] LABS: ALT (GPT) 8 U/L (12-78); CREATININE 0.99 MG/DL (0.60-1.30); GLOMERULAR FILTRATION RATE 73 ML/MIN (>89)
[2017-08-23 07:53] LABS: TOTAL BILIRUBIN ADULT 0.7 MG/DL (0.2-1.0); TOTAL PROTEIN 6.8 GM/DL (6.4-8.2)
[2017-08-23 07:54] LABS: ALKALINE PHOSPHATASE 98 U/L (45-117)
[2017-08-23] MEDS: GABAPENTIN 300 MG CAP PO SCH ×3 (08:23→17:46)
[2017-08-23] MEDS: FOLIC ACID 1 MG TAB PO SCH (08:23)
[2017-08-23] MEDS: FERROUS SULFATE 325 MG (65 MG ELEMENTAL IRON) TAB PO SCH (08:24)
[2017-08-23] MEDS: CALCIUM CARBONATE 1.25 GM (CA 500 MG) TAB PO SCH (08:24)
[2017-08-23] MEDS: PRAVASTATIN SOD 40 MG TAB PO SCH (08:24)
[2017-08-23] MEDS: busPIRone HCL 10 MG TAB PO SCH ×2 (08:24→20:19)
[2017-08-23] MEDS: PANTOPRAZOLE SOD 20 MG DELAYED RELEASE TAB PO SCH (08:24)
[2017-08-23] MEDS: SODIUM CHLORIDE 0.9% FLUSH 10 ML FLUSH IV FLUSH SCH ×2 (08:25→20:19)
[2017-08-23 08:28] VITALS: BP 148/70; PULSE 86; RESP 16; TEMP 97.9; O2SAT 95
[2017-08-23] MEDS: PARoxetine HCL 20 MG TAB PO SCH (08:30)
[2017-08-23] MEDS ORDERED: MORPHINE SULFATE 15 MG CONTROLLED RELEASE TAB PO ONE (10:15)
[2017-08-23] MEDS ORDERED: POTASSIUM CHLORIDE 10 MEQ CONTROLLED RELEASE TAB PO ONE (10:45)
--- NOTE | 2017-08-23 11:36 | HHI.PR ---
Subjective Remarks Since yesterday patient has been transitioned from [place] to Percocet as pain treatment. Patient attempted to standing and today. He was able take 2 steps. Objective Vital Signs Date Time Temp Pulse Resp B/P (MAP) Pulse Ox O2 Delivery O2 Flow Rate FiO2 08/23/17 08:28 97.9 86 16 148/70 (96) 95 08/23/17 07:00 18 08/23/17 00:00 98.8 89 20 169/87 (114) 93 08/22/17 20:00 97.5 99 20 145/93 (110) 98 08/22/17 16:00 96.7 97 18 162/78 (106) 96 08/22/17 12:00 98.0 91 18 178/85 (116) 96 08/22/17 11:40 91 18 172/104 (126) 98 Room Air 08/22/17 11:40 I/O 08/22/17 08/22/17 08/22/17 08/23/17 08/23/17 08/23/17 07:00 15:00 23:00 07:00 15:00 23:00 Intake Total 360 ml 60 ml Output Total 200 ml Balance 360 ml -140 ml Intake Oral 360 ml 60 ml Output Urine Total 200 ml # Voids 2 1 # Bowel Movements 0 Result Diagram: 08/23/17 0645 08/23/17 0645 Objective Remarks GENERAL: NAD, A&Ox3 HEAD: Normocephalic. NECK: Supple, trachea midline. No lymphadenopathy. EYES: No scleral icterus. No injection or drainage. CARDIOVASCULAR: Regular rate and rhythm without murmurs, gallops, or rubs. RESPIRATORY: Breath sounds equal bilaterally. No accessory muscle use. GASTROINTESTINAL: Abdomen soft, non-tender, nondistended. MUSCULOSKELETAL: No cyanosis, or edema. SKIN: Warm and dry. NEURO: No focal neurological deficitis. A/P Problem List: (1) Left foot pain ICD Code: M79.672 - Pain in left foot Status: Acute (2) Right shoulder pain ICD Code: M25.511 - Pain in right shoulder Status: Acute (3) Chronic back pain ICD Code: M54.9 - Dorsalgia, unspecified; G89.29 - Other chronic pain (4) Uncontrolled pain ICD Code: R52 - Pain, unspecified (5) Malfunction of device ICD Code: T85.618A - Breakdown (mechanical) of other specified internal prosthetic devices, implants and grafts, initial encounter Assessment and Plan 77 Year old male admitted due to intractable pain secondary to pain pump failure Intractable Pain Pain pump failure Pain not yet controlled MS Contin admitted to Percocet Follow pain levels Substitute and titrate PO pain treatments Plan for discharge once pain controlled To follow up with pain management physician(s) as an outpatient Osteoarthritis Chronic Back/Shoulder Pain GERD HTN Nephrolithiasis history No change to baseline treatments Follow DVT Prophylaxis lovenox Problem Qualifiers (1) Right shoulder pain: Qualified Codes: M25.511 - Pain in right shoulder Will Brooks MD Aug 23, 2017 11:35
[2017-08-23 12:34] VITALS: BP 179/80; PULSE 92; RESP 14; TEMP 97.2; O2SAT 95
[2017-08-23] MEDS: ENOXAPARIN SODIUM 40 MG/0.4 ML SYRINGE SQ SCH (13:49)
[2017-08-23] MEDS: fentaNYL 75 MCG/HR PATCH T-DERMAL SCH (16:20)
[2017-08-23 18:56] VITALS: BP 160/72; PULSE 96; RESP 16; TEMP 98.8; O2SAT 94
[2017-08-23 20:00] VITALS: BP 164/77; PULSE 92; RESP 18; TEMP 98.9; O2SAT 94
[2017-08-23] MEDS ORDERED: MORPHINE SULFATE 15 MG CONTROLLED RELEASE TAB PO SCH ×2 (21:00)
[2017-08-24] VITALS: BP 133/64; PULSE 92; RESP 18; TEMP 97.1; O2SAT 96
[2017-08-24] MEDS: oxyCODONE/ACETAMINOPHEN 10 MG/325 MG TAB PO PRN ×5 (04:32→21:14)
[2017-08-24 08:00] VITALS: BP 139/67; PULSE 92; RESP 18; TEMP 96.3; O2SAT 95
[2017-08-24] MEDS: GABAPENTIN 300 MG CAP PO SCH ×3 (09:02→17:13)
[2017-08-24] MEDS: PANTOPRAZOLE SOD 20 MG DELAYED RELEASE TAB PO SCH (09:03)
[2017-08-24] MEDS: FOLIC ACID 1 MG TAB PO SCH (09:03)
[2017-08-24] MEDS: PARoxetine HCL 20 MG TAB PO SCH (09:03)
[2017-08-24] MEDS: FERROUS SULFATE 325 MG (65 MG ELEMENTAL IRON) TAB PO SCH (09:03)
[2017-08-24] MEDS: CALCIUM CARBONATE 1.25 GM (CA 500 MG) TAB PO SCH (09:03)
[2017-08-24] MEDS: busPIRone HCL 10 MG TAB PO SCH ×2 (09:03→21:13)
[2017-08-24] MEDS: PRAVASTATIN SOD 40 MG TAB PO SCH (09:03)
[2017-08-24] MEDS: SODIUM CHLORIDE 0.9% FLUSH 10 ML FLUSH IV FLUSH SCH ×2 (09:04→21:13)
[2017-08-24 09:26] LABS: HEMATOCRIT 31.3 % (39.0-51.0); HEMOGLOBIN 10.5 GM/DL (13.0-17.0); MEAN CELL VOLUME 98.1 FL (80.0-100.0); MEAN CORPUSCULAR HGB CONC 33.6 % (32.0-36.0); MEAN PLATELET VOLUME 7.4 FL (7.0-11.0); PLATELET COUNT 248 TH/MM3 (150-450); RED BLOOD COUNT 3.19 MIL/MM3 (4.50-5.90); RED CELL DISTRIBUTION WIDTH 11.5 % (11.6-17.2); WHITE BLOOD COUNT 7.8 TH/MM3 (4.0-11.0)
[2017-08-24 09:51] LABS: CALCIUM 9.3 MG/DL (8.5-10.1)
[2017-08-24 09:52] LABS: BICARBONATE 28.6 MEQ/L (21.0-32.0)
[2017-08-24 09:58] LABS: CREATININE 1.3 MG/DL (0.60-1.30)
[2017-08-24 12:00] VITALS: BP 133/73; PULSE 95; RESP 16; TEMP 98.2; TEMP 98.6; O2SAT 95
[2017-08-24] MEDS: ENOXAPARIN SODIUM 40 MG/0.4 ML SYRINGE SQ SCH (12:32)
--- NOTE | 2017-08-24 14:11 | HHI.PR ---
Subjective Remarks Patient still not able to ambulate today. Fentanyl patch as an added to his pain regime. He has only been taking this for about 12 hours so he'll need more time to have a steady state. She did have an episode of confusion overnight. This could be related to the narcotics the patient feels that was not. Objective Vital Signs Date Time Temp Pulse Resp B/P (MAP) Pulse Ox O2 Delivery O2 Flow Rate FiO2 08/24/17 13:33 18 08/24/17 08:00 96.3 92 18 139/67 (91) 95 08/24/17 00:00 97.1 92 18 133/64 (87) 96 08/23/17 20:00 98.9 92 18 164/77 (106) 94 08/23/17 18:56 98.8 96 16 160/72 (101) 94 08/23/17 17:20 18 I/O 08/23/17 08/23/17 08/23/17 08/24/17 08/24/17 08/24/17 07:00 15:00 23:00 07:00 15:00 23:00 Intake Total 60 ml 300 ml 120 ml 300 ml Output Total 200 ml 200 ml Balance -140 ml 300 ml -80 ml 300 ml Intake Oral 60 ml 300 ml 120 ml 300 ml Output Urine Total 200 ml 200 ml # Voids 1 # Bowel Movements 0 0 Result Diagram: 08/24/17 0900 08/24/17 0900 Objective Remarks GENERAL: NAD, A&Ox3 HEAD: Normocephalic. NECK: Supple, trachea midline. No lymphadenopathy. EYES: No scleral icterus. No injection or drainage. CARDIOVASCULAR: Regular rate and rhythm without murmurs, gallops, or rubs. RESPIRATORY: Breath sounds equal bilaterally. No accessory muscle use. GASTROINTESTINAL: Abdomen soft, non-tender, nondistended. MUSCULOSKELETAL: No cyanosis, or edema. SKIN: Warm and dry. NEURO: No focal neurological deficitis. A/P Problem List: (1) Left foot pain ICD Code: M79.672 - Pain in left foot Status: Acute (2) Right shoulder pain ICD Code: M25.511 - Pain in right shoulder Status: Acute (3) Chronic back pain ICD Code: M54.9 - Dorsalgia, unspecified; G89.29 - Other chronic pain (4) Uncontrolled pain ICD Code: R52 - Pain, unspecified (5) Malfunction of device ICD Code: T85.618A - Breakdown (mechanical) of other specified internal prosthetic devices, implants and grafts, initial encounter Assessment and Plan 77 Year old male admitted due to intractable pain secondary to pain pump failure Graduating pain medications upwards to hit a controlled state. Patient's pain pump appears to have failed. As an outpatient he follows with Dr. Greg Kirk in pain management. Contact of Dr. Kirk is to be considered, though I don't find his name on a list of consults, so he may not be privileged here. Repair/ Replacement of his pain pump may need to be performed outpatient. The patient' s is instructed to bring dosage information in regards to patient's previous pain pump. Intractable Pain Pain pump failure Pain not yet controlled MS Nicole admitted to [facility] Follow pain levels Substitute and titrate PO pain treatments Plan for discharge once pain controlled To follow up with pain management physician(s) as an outpatient Osteoarthritis Chronic Back/Shoulder Pain GERD HTN Nephrolithiasis history No change to baseline treatments Follow DVT Prophylaxis lovenox Problem Qualifiers (1) Right shoulder pain: Qualified Codes: M25.511 - Pain in right shoulder Will Brooks MD Aug 24, 2017 14:11
[2017-08-24 16:00] VITALS: BP 135/75; PULSE 95; RESP 16; TEMP 98.4; O2SAT 95
[2017-08-24 20:00] VITALS: BP 175/93; PULSE 98; RESP 17; TEMP 99.8; O2SAT 97
[2017-08-25] VITALS: BP 190/95; PULSE 106; RESP 18; TEMP 98.5; O2SAT 96
[2017-08-25] MEDS: oxyCODONE/ACETAMINOPHEN 10 MG/325 MG TAB PO PRN ×5 (01:06→21:39)
[2017-08-25 02:00] VITALS: BP 160/89
[2017-08-25 07:15] LABS: HEMATOCRIT 33.8 % (39.0-51.0); HEMOGLOBIN 11.2 GM/DL (13.0-17.0); MEAN CELL VOLUME 98.1 FL (80.0-100.0); MEAN CORPUSCULAR HEMOGLOBIN 32.4 PG (27.0-34.0); PLATELET COUNT 277 TH/MM3 (150-450); RED BLOOD COUNT 3.45 MIL/MM3 (4.50-5.90); RED CELL DISTRIBUTION WIDTH 11.7 % (11.6-17.2); WHITE BLOOD COUNT 10.4 TH/MM3 (4.0-11.0)
[2017-08-25 07:23] LABS: CALCIUM 9.5 MG/DL (8.5-10.1)
[2017-08-25 07:24] LABS: BICARBONATE 28.8 MEQ/L (21.0-32.0)
[2017-08-25 07:27] LABS: CREATININE 1.2 MG/DL (0.60-1.30)
[2017-08-25 09:07] VITALS: BP 183/94; PULSE 94; RESP 16; TEMP 98.6; O2SAT 95
[2017-08-25] MEDS: GABAPENTIN 300 MG CAP PO SCH ×3 (09:29→18:01)
[2017-08-25] MEDS: FOLIC ACID 1 MG TAB PO SCH (09:29)
[2017-08-25] MEDS: CALCIUM CARBONATE 1.25 GM (CA 500 MG) TAB PO SCH (09:30)
[2017-08-25] MEDS: FERROUS SULFATE 325 MG (65 MG ELEMENTAL IRON) TAB PO SCH (09:30)
[2017-08-25] MEDS: PARoxetine HCL 20 MG TAB PO SCH (09:30)
[2017-08-25] MEDS: PRAVASTATIN SOD 40 MG TAB PO SCH (09:31)
[2017-08-25] MEDS: PANTOPRAZOLE SOD 20 MG DELAYED RELEASE TAB PO SCH (09:31)
[2017-08-25] MEDS: busPIRone HCL 10 MG TAB PO SCH ×2 (09:31→21:39)
[2017-08-25] MEDS: SODIUM CHLORIDE 0.9% FLUSH 10 ML FLUSH IV FLUSH SCH ×2 (09:32→21:46)
[2017-08-25 11:55] VITALS: BP 190/85; PULSE 93; RESP 18; TEMP 98.3; O2SAT 97
[2017-08-25] MEDS: ENOXAPARIN SODIUM 40 MG/0.4 ML SYRINGE SQ SCH (13:03)
--- NOTE | 2017-08-25 14:14 | HHI.PR ---
Subjective Remarks Patient is seen and examined today in follow-up for intractable pain, inability to ambulate. Extensive conversation with the patient today, unfortunately, his subjective story is difficult to follow with either his pain is uncontrolled, or he has weakness, or unable to ambulate due to pain and/or weakness. Patient does not have any obvious signs of objective pain. Pain is still subjective this time. As indicated that patient was on a pain pump and possibly malfunctioning. The did bring in paperwork on the last time it was checked which was on 08/15/17. Upon review of that it does appear as if the patient did have 42 successful activations a pain pump, however he had 158 locked out attempts. Discussed this with him that if he is having that many lockout attempts than his pain is not being controlled and that he needs to discuss with his pain management doctor different types of pain control. Even on the last adjustment they did a 10% increase of his pain medication. Dose per day is 549.6 g per day. Once it was suspected that the patient's pain pump wasn't functioning patient was started on fentanyl patches 75 g per hour. Which is another another 1800 g per day. As well as he is receiving Percocet for breakthrough. I notified him that he is actually receiving stronger pain medication while he is here in the hospital than he was getting in outpatient setting. Patient still with multiple concerns and complaints of multiple areas of pain despite pain control. I personally work with physical therapy to try to get him to stand up, however he possibly malingering. There was no engagement of his leg muscles when he was trying to stand. Objective Vitals Vital Signs Date Time Temp Pulse Resp B/P (MAP) Pulse Ox O2 Delivery O2 Flow Rate FiO2 08/25/17 11:55 98.3 93 18 190/85 (120) 97 08/25/17 09:07 98.6 94 16 183/94 (123) 95 08/25/17 02:00 160/89 (112) 08/25/17 00:00 98.5 106 18 190/95 (126) 96 08/24/17 20:00 99.8 98 17 175/93 (120) 97 08/24/17 18:14 18 08/24/17 16:00 98.4 95 16 135/75 (95) 95 I/O 3/18/18 3/18/18 08/24/17 08/25/17 08/25/17 08/25/17 07:00 15:00 23:00 07:00 15:00 23:00 Intake Total 120 ml 300 ml 300 ml Output Total 200 ml 300 ml 350 ml 400 ml Balance -80 ml 0 ml -50 ml -400 ml Intake Oral 120 ml 300 ml 300 ml Output Urine Total 200 ml 350 ml 400 ml Stool Total 300 ml # Voids 3 # Bowel Movements 0 Result Diagram: 08/25/1761908/25/17619 Objective Remarks GENERAL: Well-developed, well-nourished, in no acute distress. alert and orientated HEENT: Head is normocephalic without any lesions or masses noted. Facial features are symmetric. Eyes: Extraocular muscles are intact. Conjunctivae were clear. NECK: Supple without any masses. Trachea midline no deviation. No JVD, CARDIAC: Regular rhythm, regular rate. S1/S2 are heard. No murmurs gallops or rubs. LUNGS: Clear to auscultation bilaterally. No wheeze, rhonchi or rales. No use of accessory muscles on inspiration or expiration. ABDOMEN: Soft, nontender. Nondistended. Bowel sounds heard in all 4 quadrants. No organomegaly or masses. Negative rebound, negative guarding EXTREMITIES: No edema, pulses are equal bilaterally. No cyanosis or clubbing NEUROLOGY: Mood and affect appear appropriate. Cranial nerves II through XII grossly intact. Patient was moving feet followed barely while he is lying in bed. When critical therapy and myself tried to help him stand up. He did not engage his leg muscles. He states that he could not stand up. It did not appear as if he was in pain. There is no muscle tremors indicate that he was weak in the lower extremities. It is unclear if he is malingering at this time or actually has acute neurological deficits, however when he is laying in bed he is moving his feet and lifting his legs up quite easily. Urinary Catheter: No Vascular Central Line Catheter: No A/P Assessment and Plan Chronic pain, questionable intractable pain Possible pain pump failure. Reviewed documentation for pain pump patient had recent dose increase of 10% for a dose per day of 549.6 g per day, 42 successful activations, 158 lock out attempts Patient now on fentanyl patch 75 g which is given the patient 1800 g per day, along with Percocet 10 every 4 hours for pain 7-10 Discussed with patient that he is actually receiving more medication now than he was before, however he states that his pain is still not controlled There has also been episodes of patient having delusions, hallucinations with the change in medications Discussed with pain management physician who indicated that they would not have discontinued the fentanyl pump. They have no recommendations for pain control. They indicated that since we turned the pump off then it is our responsibility to manage the patient's pain. Lower extremity pain/?weakness/?malingering unknown which one is causing his inability ambulate Continue physical therapy on a daily basis. Obtain MRI of the lumbar spine Hypertension, hyperlipidemia, gastroesophageal reflux Home medications have been continued DVT prevention subcutaneous Lovenox Discharge Planning Discharge planning is going to be difficult considering the patient is observation status and patient is unable to ambulate. If patient is not malingering then is unsafe to discharge him home, however we cannot discharged to a facility because he is not inpatient status. Jone Abarca Aug 25, 2017 14:14
[2017-08-25 16:41] VITALS: BP 166/74; PULSE 96; TEMP 98.7; O2SAT 92
[2017-08-25 20:00] VITALS: BP 152/71; PULSE 96; RESP 17; TEMP 98.8; O2SAT 96
[2017-08-26] VITALS: BP 149/76; PULSE 92; RESP 16; TEMP 98.2; O2SAT 97
[2017-08-26] MEDS: oxyCODONE/ACETAMINOPHEN 10 MG/325 MG TAB PO PRN ×2 (01:16→08:02)
[2017-08-26] MEDS: GABAPENTIN 300 MG CAP PO SCH ×3 (07:59→17:10)
[2017-08-26 08:00] VITALS: BP 137/94; PULSE 91; RESP 18; TEMP 97.7; O2SAT 95
[2017-08-26] MEDS: FOLIC ACID 1 MG TAB PO SCH (08:00)
[2017-08-26] MEDS: busPIRone HCL 10 MG TAB PO SCH ×2 (08:00→20:20)
[2017-08-26] MEDS: FERROUS SULFATE 325 MG (65 MG ELEMENTAL IRON) TAB PO SCH (08:00)
[2017-08-26] MEDS: PARoxetine HCL 20 MG TAB PO SCH (08:02)
[2017-08-26] MEDS: PANTOPRAZOLE SOD 20 MG DELAYED RELEASE TAB PO SCH (08:02)
[2017-08-26] MEDS: SODIUM CHLORIDE 0.9% FLUSH 10 ML FLUSH IV FLUSH SCH ×2 (08:02→20:20)
[2017-08-26] MEDS: PRAVASTATIN SOD 40 MG TAB PO SCH (08:02)
[2017-08-26] MEDS: CALCIUM CARBONATE 1.25 GM (CA 500 MG) TAB PO SCH (08:02)
--- NOTE | 2017-08-26 09:55 | RADRPT ---
EXAM DATE/TIME: 08/26/2017 09:17 [place] COMPARISON: No previous studies available for comparison. INDICATIONS : Clear for MRI. MEDICAL HISTORY : Hypertension. Gastroesophageal reflux disease. SURGICAL HISTORY : Tonsillectomy. Panniculectomy. Lumbar laminectomy. Left knee surgery. Bilateral knee partial replacem ent. ENCOUNTER: Subsequent ACUITY: 4 - 6 days PAIN SCORE: 0/10 LOCATION: Bilateral abdomen FINDINGS: Supine view of the abdomen was performed. The abdominal bowel gas pattern is normal. No calcificati ons are seen overlying the kidneys.. The osseous structures are unremarkable. The lung bases are vanessa ar. There is calcified phlebolith is in the pelvis. There is a pain pump along the right flank. CONCLUSION: 1. There is a pain pump along the right flank. 2. Otherwise, unremarkable KUB for patient's age. Roman Waldrop MD on August 26, 2017 at 9:49 Board Certified Radiologist. This report was verified electronically.
[2017-08-26 12:00] VITALS: BP 149/74; PULSE 92; RESP 16; TEMP 97.8; O2SAT 98
--- NOTE | 2017-08-26 12:57 | HHI.PR ---
Subjective Remarks Patient is seen and examined today in follow-up for intractable pain, inability to ambulate. Patient seen and examined, lying in bed with complaints of continued intractable back pain as well as abdominal pain. Worked with physical therapy today with ability to stand 45 seconds at bedside. Still with continued pain in hip and lower lumbar spine. MRI performed, patient requesting pain medications with Toradol being effective. No significance found on MRI lumbar spine. Abdominal KUB done, unremarkable. Vital signs are stable. Labs are all stable. Objective Vitals Vital Signs Date Time Temp Pulse Resp B/P (MAP) Pulse Ox O2 Delivery O2 Flow Rate FiO2 08/26/17 08:00 97.7 91 18 137/94 (108) 95 08/26/17 00:00 98.2 92 16 149/76 (100) 97 08/25/17 20:00 98.8 96 17 152/71 (98) 96 08/25/17 16:41 98.7 96 166/74 (104) 92 I/O 08/25/17 08/25/17 08/25/17 08/26/17 08/26/17 08/26/17 07:00 15:00 23:00 07:00 15:00 23:00 Output Total 400 ml 200 ml Balance -400 ml -200 ml Output Urine Total 400 ml 200 ml # Voids 4 Result Diagram: 08/25/1720 08/25/17 0620 Imaging Last Impressions Abdomen X-Ray 08/26/17 0000 Signed Impressions: Service Date/Time: Saturday, August 26, 2017 09:17 - CONCLUSION: 1. There is a pain pump along the right flank. 2. Otherwise, unremarkable KUB for patient's age. Roman Waldrop MD Shoulder X-Ray 08/22/17 0000 Signed Impressions: Service Date/Time: Tuesday, August 22, 2017 08:41 - CONCLUSION: 1. Mild degenerative changes. No acute abnormality. Will Jones MD Lower Extremity Ultrasound 08/22/17 0000 Signed Impressions: Service Date/Time: Tuesday, August 22, 2017 08:57 - CONCLUSION: No evidence of deep venous thrombosis within the left lower extremity. Wander Aguayo MD Foot X-Ray 08/22/17 0000 Signed Impressions: Service Date/Time: Tuesday, August 22, 2017 08:41 - CONCLUSION: 1. No acute bony fracture identified. Alignment is anatomic. Will Jones MD Objective Remarks GENERAL: Well-developed, well-nourished, in no acute distress. alert and orientated HEENT: Head is normocephalic without any lesions or masses noted. Facial features are symmetric. Eyes: Extraocular muscles are intact. Conjunctivae were clear. NECK: Supple without any masses. Trachea midline no deviation. No JVD CARDIAC: Regular rhythm, regular rate. S1/S2 are heard. No murmurs gallops or rubs. LUNGS: Clear to auscultation bilaterally. No wheeze, rhonchi or rales. No use of accessory muscles on inspiration or expiration. ABDOMEN: Soft, tender to palpation to right upper quadrant. Nondistended. Bowel sounds heard in all 4 quadrants. No organomegaly or masses. EXTREMITIES: No edema, pulses are equal bilaterally. No cyanosis or clubbing. 4/ 5 muscle strength in bilateral upper and lower extremities. NEUROLOGY: Mood and affect appear appropriate. Cranial nerves II through XII grossly intact. A/P Problem List: (1) Left foot pain ICD Code: M79.672 - Pain in left foot Status: Acute (2) Right shoulder pain ICD Code: M25.511 - Pain in right shoulder Status: Acute Assessment and Plan Chronic pain, questionable intractable pain Possible pain pump failure. Reviewed documentation for pain pump patient had recent dose increase of 10% for a dose per day of 549.6 g per day, 42 successful activations, 158 lock out attempts Patient now on fentanyl patch 75 g which is given the patient 1800 g per day, along with Percocet 10 every 4 hours for pain 7-10. This is more pain medication and patient was receiving outpatient. Patient still complaints of intractable back pain pain. There has also been episodes of patient having delusions, hallucinations with the change in medications. Patient has been overall alert and oriented today with some intermittent confusion. Discussed with pain management physician who indicated that they would not have discontinued the fentanyl pump. They have no recommendations for pain control. They indicated that since we turned the pump off then it is our responsibility to manage the patient's pain. Lower extremity pain/?weakness/?malingering Unknown which one is causing his inability ambulate Continue physical therapy on a daily basis. Started with physical therapy for 45 seconds today. Maximum assist of 2. Obtained MRI of the lumbar spine showing degenerative changes, the spinal canal and neural foramina are adequate at all lumbar levels. Was given 1 time dose of Toradol with some relief. Will add NSAID to regimen. Abdominal pain: KUB performed, reviewed and essentially unremarkable. Hypertension, hyperlipidemia, gastroesophageal reflux Home medications have been continued DVT prevention subcutaneous Lovenox Discharge Planning Discharge planning is going to be difficult considering the patient is observation status and patient is unable to ambulate. If patient is not malingering then is unsafe to discharge him home, however we cannot discharged to a facility because he is not inpatient status. Problem Qualifiers (1) Right shoulder pain: Qualified Codes: M25.511 - Pain in right shoulder Britney Sullivan Aug 26, 2017 12:57
[2017-08-26] MEDS ORDERED: KETOROLAC TROMETHAMINE 30 MG/ML (IVP) VIAL IV PUSH ONE (13:00)
--- NOTE | 2017-08-26 14:05 | RADRPT ---
EXAM DATE/TIME: 08/26/2017 12:47 [facility] COMPARISON: No previous studies available for comparison. INDICATIONS : Extremity weakness. MEDICAL HISTORY : None. SURGICAL HISTORY : Fusion, lumbar. Total knee replacement, right. Total knee replacement, left. ENCOUNTER: Initial ACUITY: 3 day PAIN SCORE: 4/10 LOCATION: back TECHNIQUE: Multiplanar multisequence MRI of the lumbar spine was performed without contrast. FINDINGS: The most caudal appearing lumbar vertebra is numbered as L5. Study is quite limited due to motion artifact on every pulse sequence. On the sagittal T1-weighted im ages, a focal area of increased T2 and inversion recovery signal with diminished T1 signal along the posterior superior endplate of L3 may represent focal edema with an associated small Schmorl's node v ersus atypical hemangioma. A Schmorl's node is seen at the inferior endplate of L3. Loss of disc heig ht is most prominent at L4-5 and L5-S1 paravertebral body heights are maintained throughout. Spinal c anal appears to be adequate at every lumbar level T12-L1: The thecal sac has a normal diameter. No evidence of disc bulge or protrusion. The neural foramina are patent bilaterally. L1-L2: The thecal sac has a normal diameter. No evidence of disc bulge or protrusion. The neural foramina are patent bilaterally. L2-L3: The thecal sac has a normal diameter. No evidence of disc bulge or protrusion. The neural foramina are patent bilaterally. L3-L4: The thecal sac has a normal diameter. No evidence of disc bulge or protrusion. The neural foramina are patent bilaterally. L4-L5: The thecal sac has a normal diameter. No evidence of disc bulge or protrusion. The neural foramina are patent bilaterally. L5-S1: Bilateral facet hypertrophy. Spinal canal and neural foramina appear to be adequate. CONCLUSION: 1. Study is somewhat limited due to the significant motion artifact on every pulse sequence. 2. Schmorl's node through the inferior and possibly superior endplate of L3. Rounded area of abnormal T1 and T2 signal along the posterior superior plate of L3 is overtly benign and may represent focal edema or atypical hemangioma. 3. Despite some degenerative changes, I believe the spinal canal and neural foramina are adequate at all lumbar levels. Hira Wong MD on August 26, 2017 at 13:55 Board Certified Radiologist. This report was verified electronically.
[2017-08-26] MEDS: ENOXAPARIN SODIUM 40 MG/0.4 ML SYRINGE SQ SCH (14:40)
[2017-08-26 16:00] VITALS: BP 122/59; PULSE 93; RESP 18; TEMP 98.1; O2SAT 97
[2017-08-26] MEDS: fentaNYL 75 MCG/HR PATCH T-DERMAL SCH (17:09)
[2017-08-26 20:00] VITALS: BP 122/58; PULSE 87; RESP 20; TEMP 97.5; O2SAT 97
[2017-08-27] VITALS: BP 110/55; PULSE 93; RESP 20; TEMP 98.7; O2SAT 94
[2017-08-27] MEDS: NAPROXEN 375 MG TAB PO PRN ×3 (04:28→22:27)
[2017-08-27 07:50] VITALS: BP 136/60; PULSE 89; RESP 20; TEMP 96.7; O2SAT 93
[2017-08-27] MEDS: PANTOPRAZOLE SOD 20 MG DELAYED RELEASE TAB PO SCH (09:10)
[2017-08-27] MEDS: FERROUS SULFATE 325 MG (65 MG ELEMENTAL IRON) TAB PO SCH (09:10)
[2017-08-27] MEDS: CALCIUM CARBONATE 1.25 GM (CA 500 MG) TAB PO SCH (09:10)
[2017-08-27] MEDS: PRAVASTATIN SOD 40 MG TAB PO SCH (09:10)
[2017-08-27] MEDS: FOLIC ACID 1 MG TAB PO SCH (09:10)
[2017-08-27] MEDS: busPIRone HCL 10 MG TAB PO SCH ×2 (09:10→22:27)
[2017-08-27] MEDS: GABAPENTIN 300 MG CAP PO SCH ×3 (09:10→17:30)
[2017-08-27] MEDS: PARoxetine HCL 20 MG TAB PO SCH (09:11)
[2017-08-27] MEDS: SODIUM CHLORIDE 0.9% FLUSH 10 ML FLUSH IV FLUSH SCH ×2 (09:11→22:28)
--- NOTE | 2017-08-27 09:43 | HHI.PR ---
Subjective Remarks Patient is seen and examined today in follow-up for intractable pain, inability to ambulate. Patient seen and examined, sitting up in bed comfortable much more awake and alert. States he feels much improved pain is well controlled today. He states he does not remember much of the last few days, is currently alert and oriented. No acute events overnight. Abdominal pain resolved. MRI lumbar spine with no significance. Vital signs are stable. Labs stable. PT worked with patient today, still with 1 person maximum assist. Spoke to and patient extensively regarding discharge plans, is requesting 1 more night to arrange for discharge needs and to work with physical therapy tomorrow morning. Plan will be to DC in am. Objective Vitals Vital Signs Date Time Temp Pulse Resp B/P (MAP) Pulse Ox O2 Delivery O2 Flow Rate FiO2 08/27/17 07:50 96.7 89 20 136/60 (85) 93 08/27/17 00:00 98.7 93 20 110/55 (73) 94 08/26/17 20:00 97.5 87 20 122/58 (79) 97 08/26/17 16:00 98.1 93 18 122/59 (80) 97 08/26/17 12:00 97.8 92 16 149/74 (99) 98 I/O 08/26/17 08/26/17 08/26/17 08/27/17 08/27/17 08/27/17 07:00 15:00 23:00 07:00 15:00 23:00 Intake Total 360 ml 60 ml Output Total 200 ml 700 ml Balance -200 ml 360 ml -640 ml Intake Oral 360 ml 60 ml Output Urine Total 200 ml 700 ml # Voids 1 Result Diagram: 08/25/17 0620 08/25/17 0620 Imaging Last Impressions Lumbar Spine MRI 08/26/17 0000 Signed Impressions: Service Date/Time: Saturday, August 26, 2017 12:47 - CONCLUSION: 1. Study is somewhat limited due to the significant motion artifact on every pulse sequence. 2. Schmorl's node through the inferior and possibly superior endplate of L3. Rounded area of abnormal T1 and T2 signal along the posterior superior plate of L3 is overtly benign and may represent focal edema or atypical hemangioma. 3. Despite some degenerative changes, I believe the spinal canal and neural foramina are adequate at all lumbar levels. Hira Wong MD Abdomen X-Ray 08/26/17 0000 Signed Impressions: Service Date/Time: Saturday, August 26, 2017 09:17 - CONCLUSION: 1. There is a pain pump along the right flank. 2. Otherwise, unremarkable KUB for patient's age. Roman Waldrop MD Shoulder X-Ray 08/22/17 0000 Signed Impressions: Service Date/Time: Tuesday, August 22, 2017 08:41 - CONCLUSION: 1. Mild degenerative changes. No acute abnormality. Will Jones MD Lower Extremity Ultrasound 08/22/17 0000 Signed Impressions: Service Date/Time: Tuesday, August 22, 2017 08:57 - CONCLUSION: No evidence of deep venous thrombosis within the left lower extremity. Wander Aguayo MD Foot X-Ray 08/22/17 0000 Signed Impressions: Service Date/Time: Tuesday, August 22, 2017 08:41 - CONCLUSION: 1. No acute bony fracture identified. Alignment is anatomic. Will Jones MD Objective Remarks GENERAL: Well-developed, well-nourished, in no acute distress. alert and orientated HEENT: Head is normocephalic without any lesions or masses noted. Facial features are symmetric. Eyes: Extraocular muscles are intact. Conjunctivae were clear. NECK: Supple without any masses. Trachea midline no deviation. No JVD CARDIAC: Regular rhythm, regular rate. S1/S2 are heard. No murmurs gallops or rubs. LUNGS: Clear to auscultation bilaterally. No wheeze, rhonchi or rales. No use of accessory muscles on inspiration or expiration. ABDOMEN: Soft, tender to palpation to right upper quadrant. Nondistended. Bowel sounds heard in all 4 quadrants. No organomegaly or masses. EXTREMITIES: No edema, pulses are equal bilaterally. No cyanosis or clubbing. 4/ 5 muscle strength in bilateral upper and lower extremities. NEUROLOGY: Mood and affect appear appropriate. Cranial nerves II through XII grossly intact. A/P Problem List: (1) Left foot pain ICD Code: M79.672 - Pain in left foot Status: Acute (2) Right shoulder pain ICD Code: M25.511 - Pain in right shoulder Status: Acute Assessment and Plan Chronic pain, questionable intractable pain Possible pain pump failure. Reviewed documentation for pain pump patient had recent dose increase of 10% for a dose per day of 549.6 g per day, 42 successful activations, 158 lock out attempts Patient now on fentanyl patch 75 g which is given the patient 1800 g per day, along with Percocet 10 every 4 hours for pain 7-10. This is more pain medication and patient was receiving outpatient. Pain is now controlled. There has also been episodes of patient having delusions, hallucinations with the change in medications, these have resolved. Patient has been overall alert and oriented today no confusion today Discussed with pain management physician who indicated that they would not have discontinued the fentanyl pump. They have no recommendations for pain control. They indicated that since we turned the pump off then it is our responsibility to manage the patient's pain. Pain is well controlled at this time. Added naproxen. Lower extremity pain/?weakness/?malingering Unknown which one is causing his inability ambulate Continue physical therapy on a daily basis. Maximum of 1 person assist today. Obtained MRI of the lumbar spine showing degenerative changes, the spinal canal and neural foramina are adequate at all lumbar levels. Was given 1 time dose of Toradol with some relief. Naproxen ordered regimen , patient states control pain. Worked with physical therapy today, requires maximum of 1 person assist. requesting 1 more night for patient to improve and work with physical therapy tomorrow morning. Abdominal pain: Resolved. KUB performed, reviewed and essentially unremarkable. Hypertension, hyperlipidemia, gastroesophageal reflux Home medications have been continued DVT prevention subcutaneous Lovenox Discharge Planning Plan will be to discharge home tomorrow with home health care. states patient will be stable at home with adequate support from herself and family. Problem Qualifiers (1) Right shoulder pain: Qualified Codes: M25.511 - Pain in right shoulder Britney Sullivan SENDY Aug 27, 2017 09:43
--- NOTE | 2017-08-27 09:43 | HHI.DS ---
Discharge Summary Admission Date Aug 22, 2017 at 10:43 Discharge Date: Aug 28, 2017 Admitting Diagnosis intractable pain (1) Left foot pain ICD Code: M79.672 - Pain in left foot Status: Acute (2) Right shoulder pain ICD Code: M25.511 - Pain in right shoulder Status: Acute Procedures See below Brief History - From Admission Mr. Hallman is a 77 year old male. At baseline he has chronic pain in several joints, but most severely in his right shoulder. He has been pain controlled with an implanted fentanyl pump. In the past week he has become concerned that the implant may be malfunctioning and in the past two days, he ceased to feel any pain relief. No history of pain treatment abuse is suspected. His pain pump appears to have failed. An equivalent PO treatment will be needed prior to discharge, and he will need to follow with his pain management physician to revise his pain pump. No other complaints. CBC/BMP: 08/25/17 0620 08/25/17 0620 Significant Findings Laboratory Tests Test 08/25/17 06:20 Red Blood Count 3.45 MIL/MM3 (4.50-5.90) Hemoglobin 11.2 GM/DL (13.0-17.0) Hematocrit 33.8 % (39.0-51.0) Blood Urea Nitrogen 20 MG/DL (7-18) Random Glucose 119 MG/DL (74-106) Estimat Glomerular Filtration Rate 58 ML/MIN (>89) Imaging Last Impressions Lumbar Spine MRI 08/26/17 0000 Signed Impressions: Service Date/Time: Saturday, August 26, 2017 12:47 - CONCLUSION: 1. Study is somewhat limited due to the significant motion artifact on every pulse sequence. 2. Schmorl's node through the inferior and possibly superior endplate of L3. Rounded area of abnormal T1 and T2 signal along the posterior superior plate of L3 is overtly benign and may represent focal edema or atypical hemangioma. 3. Despite some degenerative changes, I believe the spinal canal and neural foramina are adequate at all lumbar levels. Hira Wong MD Abdomen X-Ray 08/26/17 0000 Signed Impressions: Service Date/Time: Saturday, August 26, 2017 09:17 - CONCLUSION: 1. There is a pain pump along the right flank. 2. Otherwise, unremarkable KUB for patient's age. Roman Waldrop MD Shoulder X-Ray 08/22/17 0000 Signed Impressions: Service Date/Time: Tuesday, August 22, 2017 08:41 - CONCLUSION: 1. Mild degenerative changes. No acute abnormality. Will Jones MD Lower Extremity Ultrasound 08/22/17 0000 Signed Impressions: Service Date/Time: Tuesday, August 22, 2017 08:57 - CONCLUSION: No evidence of deep venous thrombosis within the left lower extremity. Wander Aguayo MD Foot X-Ray 08/22/17 0000 Signed Impressions: Service Date/Time: Tuesday, August 22, 2017 08:41 - CONCLUSION: 1. No acute bony fracture identified. Alignment is anatomic. Will Jones MD PE at Discharge GENERAL: Well-developed, well-nourished, in no acute distress. alert and orientated HEENT: Head is normocephalic without any lesions or masses noted. Facial features are symmetric. Eyes: Extraocular muscles are intact. Conjunctivae were clear. NECK: Supple without any masses. Trachea midline no deviation. No JVD CARDIAC: Regular rhythm, regular rate. S1/S2 are heard. No murmurs gallops or rubs. LUNGS: Clear to auscultation bilaterally. No wheeze, rhonchi or rales. No use of accessory muscles on inspiration or expiration. ABDOMEN: Soft, tender to palpation to right upper quadrant. Nondistended. Bowel sounds heard in all 4 quadrants. No organomegaly or masses. EXTREMITIES: No edema, pulses are equal bilaterally. No cyanosis or clubbing. 4/ 5 muscle strength in bilateral upper and lower extremities. NEUROLOGY: Mood and affect appear appropriate. Cranial nerves II through XII grossly intact. Pt update on day of discharge Follow-up intractable back pain. Patient seen and examined, sitting on side of bed eating breakfast. Much improved today. Worked with PT and able to walk in room. Patient's pain is controlled and absent at the time of assessment. Eating well, denies any abdominal pain nausea or vomiting. Vital signs are stable. Labs stable. Will discharge today home with home health care. Patient has a follow-up appointment with pain management set for tomorrow at 10 AM. Hospital Course 77-year-old male patient presented with acute on chronic severe intractable back pain. With possible pain pump failure. Was given a patch and Percocet as needed for pain per pain scale. Patient was also given NSAIDs, at the time of discharge patient's pain was controlled. Throughout the hospital stay patient did have episodes of delusions, hallucinations with changes in medicines, which have resolved upon discharge. Patient was alert and oriented at time of discharge. Pain management follow-up with patient tomorrow morning 10 AM the outpatient setting. Patient also complains of lower extremity pain and inability to walk. PT worked with patient throughout hospital stay and upon discharge patient was able to walk in room with controlled pain. MRI obtained of the lumbar spine showing degenerative changes, the spinal canal and neural foramina are adequate at all levels. Patient also did have abdominal pain during catheterization, KUB was performed and essentially unremarkable. Patient was eating and drinking upon discharge, no abdominal pain nausea vomiting. Patient's vitals are stable at discharge. He will be discharged home with home health care. Pt Condition on Discharge: Stable Discharge Disposition: Disch w/ Home Health Serv Discharge Time: <= 30 minutes Discharge Instructions DIET: Follow Instructions for: Heart Healthy Diet Speech Therapy-Diet Recommends: Regular Activities you can perform: Regular-No Restrictions Follow up Referrals: Pain Management - 1 Week PCP Follow-up - 1 Week New Medications: Naproxen (Naproxen) 375 Mg Tab 375 MG PO Q8H PRN for breakthrough pain for 30 Days, #90 TAB Continued Medications: B-Complex Vitamins (Vitamin B Complex) 1 Tab 1 TAB PO DAILY Buspirone (Buspirone) 10 Mg Tab 10 MG PO BID for Anxiety, TAB 0 Refills Calcium Carbonate (Calcium) 600 Mg Tab 600 MG PO DAILY Docusate Sodium (Stool Softener) 100 Mg Cap 100 MG PO DAILY PRN for CONSTIPATION Fentanyl Citrate/Pf (Fentanyl 1,000 Mcg/20 ml Vial) 50 Mcg/1 Ml Vial PAIN PUMP Ferrous Sulfate (Ferosul) 325 Mg Tablet 325 MG PO DAILY Folic Acid (Folic Acid) 1 Mg Tablet 1 TAB PO DAILY for Nutritional Supplement Gabapentin (Gabapentin) 600 Mg Tab 600 MG PO TID for NEUROPATHY, #90 TAB 0 Refills Lovastatin (Lovastatin) 20 Mg Tab 40 MG PO DAILY for Cholesterol Management, #30 TAB 0 Refills Mirabegron (Myrbetriq) 25 Mg Tab 25 MG PO DAILY for Urinary Symptom Managemen, #30 TAB 0 Refills Multiple Vitamin (Multi-Vitamin Daily) 1 Tab Tab 1 TAB PO DAILY for Nutritional Supplement, TAB 0 Refills Omeprazole (Omeprazole) 20 Mg Tab 20 MG PO DAILY for Reflux, #30 TAB 0 Refills Paroxetine (Paroxetine) 10 Mg Tab 10 MG PO DAILY for Anxiety, #30 TAB 0 Refills Discontinued Medications: Ketoconazole Topical (Ketoconazole Topical) 2% Cream 1 APPLIC TOPICAL DAILY PRN for Fungal Infection, #15 GM 0 Refills Britney Sullivan Aug 27, 2017 09:43
--- NOTE | 2017-08-27 10:02 | HHI.FF ---
Face to Face Verification Diagnosis: (1) Uncontrolled pain Physical Therapy Order: Evaluate and Treat, Improve ambulation, Strength and gait training Home Health Nursing Order: Medical education Medication education-adverse effect Nursing assessment with vital signs I have seen patient Duke Hallman on 08/27/17. My clinical findings support the need for the requested home health care services because: Deconditioned w/ increased weakness Limited ability to care for self I certify that my clinical findings support that this patient is homebound because: Unsteady gait/balance Britney Sullivan Aug 27, 2017 10:02
--- NOTE | 2017-08-27 10:03 | HHI.DCPOC ---
Discharge Care Plan Diagnosis: (1) Chronic back pain Goals to Promote Your Health * To prevent worsening of your condition and complications * To maintain your health at the optimal level Directions to Meet Your Goals Take your medications as prescribed Follow your dietary instruction Follow activity as directed Keep your appointments as scheduled Take your immunizations and boosters as scheduled If your symptoms worsen call your PCP, if no PCP go to Urgent Care Center or Emergency Room Smoking is Dangerous to Your Health. Avoid second hand smoke Call the 24-hour hour crisis hotline for domestic abuse at Birtney Sullivan Aug 27, 2017 10:03
[2017-08-27] MEDS ORDERED: NAPR-855 PO (10:05)
[2017-08-27 11:50] VITALS: BP 124/61; PULSE 88; RESP 20; TEMP 96.6; O2SAT 93
[2017-08-27] MEDS: ENOXAPARIN SODIUM 40 MG/0.4 ML SYRINGE SQ SCH (13:10)
[2017-08-27 15:50] VITALS: BP 141/66; PULSE 81; RESP 20; TEMP 96.8; O2SAT 93
[2017-08-27 20:00] VITALS: BP 129/65; PULSE 78; RESP 20; TEMP 96.8; O2SAT 96
[2017-08-28] VITALS: BP 132/62; PULSE 83; RESP 20; TEMP 96.5; O2SAT 94
[2017-08-28 08:00] VITALS: BP 144/77; PULSE 78; RESP 18; TEMP 96.7; O2SAT 95
[2017-08-28] MEDS: SODIUM CHLORIDE 0.9% FLUSH 10 ML FLUSH IV FLUSH SCH (08:37)
[2017-08-28] MEDS: FERROUS SULFATE 325 MG (65 MG ELEMENTAL IRON) TAB PO SCH (08:37)
[2017-08-28] MEDS: FOLIC ACID 1 MG TAB PO SCH (08:37)
[2017-08-28] MEDS: PARoxetine HCL 20 MG TAB PO SCH (08:38)
[2017-08-28] MEDS: CALCIUM CARBONATE 1.25 GM (CA 500 MG) TAB PO SCH (08:38)
[2017-08-28] MEDS: PRAVASTATIN SOD 40 MG TAB PO SCH (08:38)
[2017-08-28] MEDS: busPIRone HCL 10 MG TAB PO SCH (08:38)
[2017-08-28] MEDS: PANTOPRAZOLE SOD 20 MG DELAYED RELEASE TAB PO SCH (08:38)
[2017-08-28] MEDS: GABAPENTIN 300 MG CAP PO SCH (08:38)
--- NOTE | 2017-08-28 09:30 | HHI.PR ---
Subjective Remarks Follow-up intractable back pain. Patient seen and examined, sitting on side of bed eating breakfast. Much improved today. Worked with PT and able to walk in room. Patient's pain is controlled and absent at the time of assessment. Eating well, denies any abdominal pain nausea or vomiting. Vital signs are stable. Labs stable. Will discharge today home with home health care. Patient has a follow-up appointment with pain management set for tomorrow at 10 AM. Objective Vitals Vital Signs Date Time Temp Pulse Resp B/P (MAP) Pulse Ox O2 Delivery O2 Flow Rate FiO2 08/28/17 08:00 96.7 78 18 144/77 (99) 95 08/28/17 00:00 96.5 83 20 132/62 (85) 94 08/27/17 20:00 96.8 78 20 129/65 (86) 96 08/27/17 15:50 96.8 81 20 141/66 (91) 93 08/27/17 14:22 18 08/27/17 11:50 96.6 88 20 124/61 (82) 93 I/O 08/27/17 08/27/17 08/27/17 08/28/17 08/28/17 08/28/17 07:00 15:00 23:00 07:00 15:00 23:00 Intake Total 60 ml 270 ml 240 ml Output Total 700 ml 900 ml 250 ml 200 ml Balance -640 ml -630 ml -10 ml -200 ml Intake Oral 60 ml 270 ml 240 ml Output Urine Total 700 ml 900 ml 250 ml 200 ml # Voids 1 1 # Bowel Movements 0 0 0 Result Diagram: 08/25/1720 08/25/17 0620 Imaging Last Impressions Lumbar Spine MRI 08/26/17 0000 Signed Impressions: Service Date/Time: Saturday, August 26, 2017 12:47 - CONCLUSION: 1. Study is somewhat limited due to the significant motion artifact on every pulse sequence. 2. Schmorl's node through the inferior and possibly superior endplate of L3. Rounded area of abnormal T1 and T2 signal along the posterior superior plate of L3 is overtly benign and may represent focal edema or atypical hemangioma. 3. Despite some degenerative changes, I believe the spinal canal and neural foramina are adequate at all lumbar levels. Hira Wong MD Abdomen X-Ray 08/26/17 0000 Signed Impressions: Service Date/Time: Saturday, August 26, 2017 09:17 - CONCLUSION: 1. There is a pain pump along the right flank. 2. Otherwise, unremarkable KUB for patient's age. Roman Waldrop MD Shoulder X-Ray 08/22/17 0000 Signed Impressions: Service Date/Time: Tuesday, August 22, 2017 08:41 - CONCLUSION: 1. Mild degenerative changes. No acute abnormality. Will Jones MD Lower Extremity Ultrasound 08/22/17 0000 Signed Impressions: Service Date/Time: Tuesday, August 22, 2017 08:57 - CONCLUSION: No evidence of deep venous thrombosis within the left lower extremity. Wander Aguayo MD Foot X-Ray 08/22/17 0000 Signed Impressions: Service Date/Time: Tuesday, August 22, 2017 08:41 - CONCLUSION: 1. No acute bony fracture identified. Alignment is anatomic. Will Jones MD Objective Remarks GENERAL: Well-developed, well-nourished, in no acute distress. alert and orientated HEENT: Head is normocephalic without any lesions or masses noted. Facial features are symmetric. Eyes: Extraocular muscles are intact. Conjunctivae were clear. NECK: Supple without any masses. Trachea midline no deviation. No JVD CARDIAC: Regular rhythm, regular rate. S1/S2 are heard. No murmurs gallops or rubs. LUNGS: Clear to auscultation bilaterally. No wheeze, rhonchi or rales. No use of accessory muscles on inspiration or expiration. ABDOMEN: Soft, tender to palpation to right upper quadrant. Nondistended. Bowel sounds heard in all 4 quadrants. No organomegaly or masses. EXTREMITIES: No edema, pulses are equal bilaterally. No cyanosis or clubbing. 4/ 5 muscle strength in bilateral upper and lower extremities. NEUROLOGY: Mood and affect appear appropriate. Cranial nerves II through XII grossly intact. A/P Problem List: (1) Left foot pain ICD Code: M79.672 - Pain in left foot Status: Acute (2) Right shoulder pain ICD Code: M25.511 - Pain in right shoulder Status: Acute Assessment and Plan Chronic pain, questionable intractable pain Patient now on fentanyl patch 75 g which is given the patient 1800 g per day, along with Percocet 10 every 4 hours for pain 7-10. Pain is now controlled. There has also been episodes of patient having delusions, hallucinations with the change in medications, these have resolved. Patient has been overall alert and oriented today no confusion today, patient states he is much improved today. Pain is well controlled at this time. Continued NSAID. Patient has follow-up appointment with pain management tomorrow at 10 AM. Lower extremity pain/?weakness/?malingering Unknown which one is causing his inability ambulate Continue physical therapy on a daily basis. Maximum of 1 person assist today. Obtained MRI of the lumbar spine showing degenerative changes, the spinal canal and neural foramina are adequate at all lumbar levels. Was given 1 time dose of Toradol with some relief. Naproxen ordered regimen , patient states control pain. Worked with physical therapy today able to walk in room, pain is tolerable. Will discharge home with home health care, assisting with family. States that there is adequate support at home to help patient. Abdominal pain: Resolved. KUB performed, reviewed and essentially unremarkable. Hypertension, hyperlipidemia, gastroesophageal reflux Home medications have been continued DVT prevention subcutaneous Lovenox Discharge Planning Discharge today with home health care. states patient will be stable at home with adequate support from herself and family. Problem Qualifiers (1) Right shoulder pain: Qualified Codes: M25.511 - Pain in right shoulder Britney Sullivan Aug 28, 2017 09:30
== END 2017-08-28 12:00 | disposition home health service (06) ==
LOC: PHED 08:02 → PHEDA 10:43 → PH3A 11:42
PROVIDERS: ADMIT Hospitalist; ATTEND Hospitalist
DX: M79.672 Pain in left foot (principal); M25.511 Pain in right shoulder; I10 Essential (primary) hypertension; K21.9 Gastro-esophageal reflux disease without esophagitis; M46.90 Unspecified inflammatory spondylopathy, site unspecified; G89.29 Other chronic pain; F41.9 Anxiety disorder, unspecified; Z79.899 Other long term (current) drug therapy
CPT/HCPCS: 72148; 73030; 73630; 74018; 80048; 80053; 85025; 85027; 93971; 97110; 97116; 97162; 97530; 99285; G0378; G8987; G8988; J1650; J1885; J3010

== ENCOUNTER 2018-01-20 20:27 | Observation (INO) ==
[2018-01-20] MEDS ORDERED: Sodium Chlor 0.9% Inj 500 ML IV.SIG ONE (20:47)
[2018-01-20] MEDS ORDERED: Tetanus/Diphtheria Toxoid Adult Vaccine Inj 0.5 ML Vial IM ONE (20:51)
--- NOTE | 2018-01-20 20:51 | ED ---
HPI General Chief Complaint: Syncope Stated Complaint: Syncope Time Seen by Provider: 01/20/18 20:39 Source: patient Mode of arrival: ambulatory Limitations: no limitations History of Present Illness HPI narrative: The patient is a 77-year-old male who presents to the emergency department after a syncopal episode. The patient had dinner earlier [employer], when he walked out of the restaurant with his walker and had a syncopal episode. The patient apparently was walking and then collapsed on his walker. The patient landed on his knees, was found lying on his walker. The patient is unsure how long he had a loss of consciousness but does not recall the events preceding the syncopal episode. He denies any no chest pain, shortness of breath, nausea, vomiting, dizziness, or lightheadedness prior to the event. The patient states he normally has a normal blood pressure, however , when EMS was on scene the patient's blood pressure was low. The patient notes a mild headache and some abrasions to the knees, otherwise, denies any current symptoms. MD complaint: loss of consciousness Onset (ago): minute(s) -: minutes(s) Prodromal symptoms: none Witnessed: yes - by other Injuries sustained associated with event: LLE and RLE Current symptoms: lightheaded and headache Treatments prior to arrival: none Related Data Home Medications Medication Instructions Recorded Confirmed buspirone 30 mg PO BID 01/20/18 01/20/18 fentanyl citrate (PF) 2,000 mcg IM DIRECTED 01/20/18 01/20/18 lovastatin 40 mg PO BID 01/20/18 01/20/18 omeprazole 20 mg PO DAILY 01/20/18 01/20/18 paroxetine HCl 10 mg PO DAILY 01/20/18 01/20/18 Allergies Allergy/AdvReac Type Severity Reaction Status Date / Time morphine AdvReac Severe GI UPSET Verified 01/20/18 20:58 Review of Systems ROS: all other systems reviewed are negative [facility] Medical History Medical History Acid reflux (Acute) Anxiety (Acute) Chronic knee pain 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 SKIN: Focused skin assessment warm/dry. Abrasions, superficial, to the anterior aspect of the knees bilaterally. HEAD: Atraumatic. Normocephalic. EYES: Pupils equal and round. 3 mm bilateral and reactive. ENT: No nasal bleeding or discharge. Mucous membranes pink and moist. NECK: Trachea midline. No JVD. CARDIOVASCULAR: Regular rate and rhythm. No murmur appreciated. RESPIRATORY: No accessory muscle use. Clear to auscultation. Breath sounds equal bilaterally. GASTROINTESTINAL: Abdomen soft, non-tender, nondistended. Palpable pain pump right lower quadrant. MUSCULOSKELETAL: No obvious deformities. No clubbing. No cyanosis. No edema. Well-healed scar of the anterior aspect of the knees bilateral. Superficial abrasions to the anterior aspect of the knees bilaterally. NEUROLOGICAL: Awake and alert. No obvious cranial nerve deficits. Motor grossly within normal limits. Normal speech. Nonfocal. Oriented 4. Follows commands without difficulty. PSYCHIATRIC: Appropriate mood and affect; insight and judgment normal. Course Initial Documented Vital Signs Temperature 97.6 F 01/20/18 20:35 Pulse Rate 89 01/20/18 20:35 Respiratory Rate 20 01/20/18 20:35 Blood Pressure 80/48 L 01/20/18 20:35 Pulse Oximetry 93 L 01/20/18 20:35 Last Documented Vital Signs Temperature 97.6 F 01/20/18 20:35 Pulse Rate 86 01/20/18 20:40 Respiratory Rate 20 01/20/18 20:40 Blood Pressure 84/54 L 01/20/18 20:40 Pulse Oximetry 93 L 01/20/18 21:03 Medical Decision Making [facility] Narrative Medical decision making narrative: IV was established, labs are drawn and sent, and the patient was placed on cardiac telemetry monitoring and continuous pulse oximetry monitoring. EKG was ordered and interpreted. The patient was noted to have systolic blood pressure in 80s, with a set of vital signs were obtained and the patient was administered 500 cc normal saline bolus. CT of the brain was obtained as the patient has a mild headache after syncopal episode. The patient's orthostatic vital signs were positive. The patient's BUN was 30 and creatinine was 1.9. I reviewed the EMR, the patient does have a previous history of elevated creatinine of 1.52, it appears the patient has acute on chronic mild renal insufficiency. The patient's orthostatics vital signs are also positive, however, the patient has had no recent dehydration, vomiting, or poor oral intake. I discussed the patient with Dr. Brooks who agrees with 23 hour observation. The patient may benefit from judicious IV fluid administration, carotid ultrasound, and echocardiogram. Medical Screen Exam Complete: Yes Emergency Medical Condition: Yes Differential Diagnosis Differential Diagnosis: Differential diagnosis includes syncope, arrhythmia, cardiogenic syncope, neurogenic syncope, seizure, closed head injury, to cranial hemorrhage, aneurysm, electrolyte abnormality. Lab Data Lab results reviewed: Yes I reviewed the patient's lab results. Result diagrams: 01/20/18 20:45 01/20/18 20:45 Lab Results 01/20/18 01/20/18 Range/Units 20:45 20:45 CBC w Diff Auto diff final WBC 8.0 (4.0-11.0) th/mm3 RBC 3.66 L (4.50-5.90) mil/mm3 Hgb 11.7 L (13.0-17.0) gm/dL Hct 36.0 L (39.0-51.0) % MCV 98.3 (80.0-100.0) fL MCH 31.8 (27.0-34.0) pg MCHC 32.3 (32.0-36.0) % RDW 14.3 (11.6-17.2) % Plt Count 185 (150-450) th/mm3 MPV 8.8 (7.0-11.0) fL Neut % (Auto) 78.8 H (16.0-70.0) % Lymph % (Auto) 17.0 (9.0-44.0) % Phelps % (Auto) 3.4 (0.0-8.0) % Eos % (Auto) 0.3 (0.0-4.0) % Baso % (Auto) 0.5 (0.0-2.0) % Neut # (Auto) 6.3 (1.8-7.7) th/mm3 Lymph # (Auto) 1.4 (1.0-4.8) th/mm3 Phelps # (Auto) 0.3 (0.0-0.9) th/mm3 Eos # (Auto) 0.0 (0.0-0.4) th/mm3 Baso # (Auto) 0.0 (0.0-0.2) th/mm3 WBC Differential . Differential Comment . Sodium 140 (136-145) meq/L Potassium 4.4 (3.5-5.1) meq/L Chloride 107 (98-107) meq/L Carbon Dioxide 23.4 (21.0-32.0) meq/L Anion Gap 10 (5-15) meq/L BUN 30 H (7-18) mg/dL Creatinine 1.90 H (0.60-1.30) mg/dL Estimated GFR 34 L (>89) mL/min Random Glucose 95 (74-106) mg/dL Calcium 8.5 (8.5-10.1) mg/dL Magnesium 1.9 (1.5-2.5) mg/dL Total Bilirubin 0.6 (0.2-1.0) mg/dL AST 13 L (15-37) U/L ALT 15 (12-78) U/L Alkaline Phosphatase 52 (45-117) U/L Troponin I Less than 0.02 L (0.02-0.05) ng/mL Total Protein 6.7 (6.4-8.2) g/dL Albumin 3.4 (3.4-5.0) g/dL Imaging Data Radiologist's impression: Head CT 01/20/18 20:47 CONCLUSION: 1. Negative noncontrast head CT. . ECG Data EKG Prior to Arrival: No Attestation: I personally reviewed and interpreted this ECG as follows: Interpretation: EKG reveals right bundle branch block, sinus rhythm with a rate of 76. Discharge Plan Discharge Disposition Patient Disposition: 30 Still Patient Discharge Condition Condition: Stable Discharge Details Diagnosis: Syncope, Orthostatic hypotension Physicians Team ED Provider: Anmol Villarreal Primary Care Provider: Celestino Aguirre Rxs /Orders / Referrals /Forms Prescriptions: No Action lovastatin 40 mg Tablet 40 mg PO BID RF: 0 omeprazole 20 mg Capsule,Delayed Release(Dr/Ec) 20 mg PO DAILY RF: 0 paroxetine HCl 10 mg Tablet 10 mg PO DAILY RF: 0 buspirone 30 mg Tablet 30 mg PO BID RF: 0 fentanyl citrate (PF) 50 mcg/mL Solution 2,000 mcg IM DIRECTED RF: 0 Discharge Interventions Interventions: Vital Signs Last Done: 01/20/18 20:40 Status ED Status: Admitted Observation Patient
[2018-01-20 21:04] LABS: Baso % (Auto) 0.5 % (0.0-2.0); Eos % (Auto) 0.3 % (0.0-4.0); Hemoglobin 11.7 gm/dL (13.0-17.0); Lymph # (Auto) 1.4 th/mm3 (1.0-4.8); Mean Corpuscular HGB Conc 32.3 % (32.0-36.0); Mean Corpuscular Hemoglobin 31.8 pg (27.0-34.0); Mean Corpuscular Volume 98.3 fL (80.0-100.0); Mean Platelet Volume 8.8 fL (7.0-11.0); Mono # (Auto) 0.3 th/mm3 (0.0-0.9); Mono % (Auto) 3.4 % (0.0-8.0); Neut # (Auto) 6.3 th/mm3 (1.8-7.7); Neut % (Auto) 78.8 % (16.0-70.0); Platelet Count 185 th/mm3 (150-450); Red Blood Count 3.66 mil/mm3 (4.50-5.90); Red Cell Distribution Width 14.3 % (11.6-17.2)
[2018-01-20 21:13] LABS: Chloride 107 meq/L (98-107); Potassium 4.4 meq/L (3.5-5.1); Sodium 140 meq/L (136-145)
[2018-01-20 21:16] LABS: Calcium 8.5 mg/dL (8.5-10.1)
[2018-01-20 21:17] LABS: Albumin 3.4 g/dL (3.4-5.0); Anion Gap 10 meq/L (5-15); Blood Urea Nitrogen 30 mg/dL (7-18); Carbon Dioxide 23.4 meq/L (21.0-32.0); Glucose,Random 95 mg/dL (74-106); Magnesium 1.9 mg/dL (1.5-2.5)
[2018-01-20 21:20] LABS: Alanine Aminotransferase 15 U/L (12-78); Aspartate Aminotransferase 13 U/L (15-37); Glomerular Filtration Rate 34 mL/min (>89)
[2018-01-20 21:22] LABS: Total Protein 6.7 g/dL (6.4-8.2)
[2018-01-20 21:23] LABS: Alkaline Phosphatase 52 U/L (45-117)
--- NOTE | 2018-01-20 21:56 | CT ---
EXAM DATE: 01/20/2018 9:48 PM EDT AGE/SEX: 77 years / Male INDICATIONS: Syncope. CLINICAL DATA: This is the patient's initial encounter. Patient reports that signs and symptoms have been present for 1 day and indicates a pain score of 0/10. MEDICAL/SURGICAL HISTORY: Cardiovascular disease. Hypertension. Gastroesophageal reflux disease. Discectomy, lumbar. RADIATION DOSE: 55.00 CTDI (mGy) COMPARISON: [facility], CT BRAIN W/O CONTRAST, 11/13/2016. . TECHNIQUE: CT of the head without contrast. Using automated exposure control and adjustment of the mA and/or kV according to patient size, radiation dose was kept as low as reasonably achievable to ob tain optimal diagnostic quality images. DICOM format image data is available electronically for revi ew and comparison. FINDINGS: Cerebrum: The ventricles are normal for age. No evidence of midline shift, mass lesion, hemorrhage or acute infarction. No extraaxial fluid collections are seen. Posterior Fossa: The cerebellum and brainstem are intact. The 4th ventricle is midline. The cerebe llopontine angle is unremarkable. Extracranial: The visualized portion of the orbits is intact. Skull: The calvaria is intact. No evidence of skull fracture. CONCLUSION: 1. Negative noncontrast head CT. . Electronically signed by: Toby Esquivel MD 01/20/2018 9:55 PM EDT
--- NOTE | 2018-01-20 22:10 | ECG ---
Date Performed: 01/20/2018 Time Performed: 21:36:13 PTAGE: 77 years EKG: Sinus rhythm POSSIBLE LEFT ATRIAL ENLARGEMENT LEFT AXIS DEVIATION RIGHT BUNDLE BRANCH BLOCK ABNORMAL ECG PREVIOUS TRACING : 01/25/2017 22.23 Compared to previous tracing, anterolateral ST/T changes fay ve resolved. DOCTOR: Fabián Ramirez Interpretating Date/Time 01/20/2018 22:10:02
[2018-01-20] MEDS ORDERED: Butalbital/APAP/Caff 50/325/40 MG Tablet PO ONE (22:25)
[2018-01-20] MEDS: Sod Chloride 0.9% Inj 1,000 ML IV.CONT SCH (22:45)
[2018-01-21 06:07] LABS: White Blood Count 6.9 th/mm3 (4.0-11.0)
[2018-01-21 06:08] LABS: Baso % (Auto) 0.5 % (0.0-2.0); Eos % (Auto) 0.7 % (0.0-4.0); Hematocrit 33.9 % (39.0-51.0); Lymph # (Auto) 1.5 th/mm3 (1.0-4.8); Mean Corpuscular HGB Conc 32.6 % (32.0-36.0); Mean Corpuscular Hemoglobin 31.8 pg (27.0-34.0); Mean Corpuscular Volume 97.5 fL (80.0-100.0); Mean Platelet Volume 9.1 fL (7.0-11.0); Mono # (Auto) 0.5 th/mm3 (0.0-0.9); Mono % (Auto) 7.9 % (0.0-8.0); Neut # (Auto) 4.9 th/mm3 (1.8-7.7); Neut % (Auto) 68.9 % (16.0-70.0); Platelet Count 158 th/mm3 (150-450); Red Blood Count 3.47 mil/mm3 (4.50-5.90); Red Cell Distribution Width 14.7 % (11.6-17.2)
[2018-01-21 06:12] LABS: Chloride 108 meq/L (98-107); Potassium 3.8 meq/L (3.5-5.1); Sodium 141 meq/L (136-145)
[2018-01-21 06:17] LABS: Anion Gap 5 meq/L (5-15); Calcium 8.3 mg/dL (8.5-10.1); Carbon Dioxide 27.7 meq/L (21.0-32.0); Glucose,Random 100 mg/dL (74-106)
[2018-01-21 06:18] LABS: Blood Urea Nitrogen 32 mg/dL (7-18)
[2018-01-21 06:20] LABS: Alanine Aminotransferase 16 U/L (12-78); Aspartate Aminotransferase 14 U/L (15-37)
[2018-01-21 06:21] LABS: Glomerular Filtration Rate 37 mL/min (>89)
[2018-01-21 06:22] LABS: Alkaline Phosphatase 48 U/L (45-117)
[2018-01-21] MEDS: Pantoprazole Sodium 20 MG DR Tablet PO SCH (09:34)
[2018-01-21] MEDS: Sod Chloride 0.9% Inj 1,000 ML IV.CONT SCH ×2 (09:36→20:50)
--- NOTE | 2018-01-21 09:47 | US ---
EXAM DATE: 01/21/2018 9:41 AM EDT AGE/SEX: 77 years / Male INDICATIONS: Syncope. CLINICAL DATA: This is the patient's initial encounter. Patient reports that signs and symptoms have been present for 1 day and indicates a pain score of 2/10. MEDICAL/SURGICAL HISTORY: Hypercholesterolemia. Acid reflux. Anxiety. Bladder incontinence. Nayla ropathy. . Bilateral knee replacement. Back surgery. Fentanyl pain pump implant. COMPARISON: No prior exams available for comparison. VELOCITY PARAMETERS: ICA/CCA Ratio: Right 0.8 , Left 1.0 ICA: Right 58 cm/sec, Left 107 cm/sec CCA: Right 82 cm/sec, Left 102 cm/sec ECA: Right 191 cm/sec, Left 88 cm/sec Vertebral: Right 49 cm/sec antegrade, Left not seen cm/sec absent FINDINGS: Right Carotid: Mild arteriosclerotic plaque is visualized.The waveforms are within normal limits. Left Carotid: Minimal arteriosclerotic plaque is visualized. The waveforms are within normal limits. Other: None. CONCLUSION: 1. Right Internal Carotid Artery: Mild atherosclerotic plaquing at the carotid bulb extending up int o the internal. No sonographic or Doppler findings of a hemodynamically significant stenosis in the i nternal. Elevated velocities in the external may indicate some narrowing in this vessel. 2. Left Internal Carotid Artery: Minimal atherosclerotic plaquing in the carotid bulb. No sonographi c or Doppler findings of a hemodynamically significant stenosis. 3. 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 Antegrade flow in the right vertebral. Electronically signed by: Hira Wong MD 01/21/2018 9:46 AM EDT
[2018-01-21] MEDS: Acetaminophen 325 MG Tablet PO PRN ×2 (12:24→21:04)
--- NOTE | 2018-01-21 15:25 | P.PNWCN ---
Wound Care Nurse Consult Description: Wound consult ordered by for wound management. Communicated with: Nithya KEYS, Recommendation: 1. Cleanse bilateral upper lower extremities with warm soap and water rinse pat dry. 2. Apply Cavilon Skin prep spray to Hematoma/abrasions BID. 3. If bleeding occurs can cover with Versatel and dry non adhesive dressing. 4. Sign and date all dressings Additional information: Patient was seen today by machine sign writer for wound management.Patient alert and oriented x4 resting in bed in non acute distress.Upper and lower extremities open to air.[employer] Driver was able to visualize bilateral upper lower extremities.Patient noted to have diffuse reabsorbing hematomas located to bilateral knees and elbows.Areas cleansed with normals jeremi pat dry no bleeding /exudate noted.Cavilon skin prep spray applied x3 air dried.Patient had no further questions or concerns upon writers departure. Wound/Pressure Injury - Wound right elbow abrasion Wound Type: Abrasion left elbow abrasion Wound Type: Abrasion
--- NOTE | 2018-01-21 15:26 | P.HP ---
History of Present Illness Primary Care Physician: Celestino Aguirre History of Present Illness: 77-year-old male with a history of dyslipidemia, bilateral knee replacements and anxiety presents to the ER following a syncopal episode. A episode occurred following dinner last night when leaving the restaurant with his walker he became acutely dizzy and the next thing he remembers he woke up on the floor with a crowd around him. He was told that this episode was brief that he did not have seizure-like behavior. Since the occurrence he has been having a headache. He does not remember hitting his head. He had a similar episode 1 month ago at his house but did not come to the ER at that time. She denies any bowel or bladder incontinence associated with the event. Review of Systems Constitutional: Denies chills, Denies fevers, Denies daytime sleepiness,Denies fatigue, Denies weakness, Denies headache, Denies malaise, Denies night sweats , Denies anorexia, Denies increased appetite Denies weight gain, Denies weight loss Eyes: Denies visual changes, Denies visual loss, Denies double vision, Denies blind spots, Denies blurry vision, Denies discharge, Denies dry eyes, Denies floaters, Denies irritation, Denies itchy eyes, Denies pain, Denies photophobia , Denies bulging eyes Ears, Nose, Mouth, and Throat: Denies bleeding gums, Denies change in voice, Denies difficulty swallowing, Denies abnormal hearing, Denies ear discharge, Denies ear pain, Denies tinitus, Denies vertigo, Denies facial pain, Denies hoarseness, Denies lip swelling, Denies mouth lesions, Denies nasal congestion, Denies nasal discharge, Denies nasal obstruction, Denies neck lump, Denies neck pain, Denies nose pain, Denies nosebleed, Denies post nasal drip, Denies sinus pain, Denies sinus pressure, Denies sore throat, Denies throat swelling, Denies tongue swelling Cardiovascular: Denies chest pain, Denies fainting, Denies fast heart rate, Denies foot swelling, Denies generalized swelling, Denies irregular heart rhythm , Denies leg sores, Denies leg swelling, Denies shortness of breath when lying down, Denies shortness of breath causing sudden awakening, Denies slow heart rate Respiratory: Denies change in phlegm color, Denies chest congestion, Denies cough, Denies coughing up blood, Denies excessive phlegm production, Denies pain on inspiration, Denies pain with cough, Denies shortness of breath, Denies shortness of breath with activity, Denies snoring, Denies stridor, Denies wheezing, Denies other Gastrointestinal: Denies abdominal pain, Denies bleeding, Denies stool color changes, Denies bloating, Denies change in bowel habits, Denies coffee ground vomit, Denies constipation, Denies feeling full early, Denies heartburn, Denies loose stools, Denies nausea, Denies vomiting, Denies pain with swallowing Skin/Breast: Denies bleeding lesions, Denies boil, Denies change in skin color, Denies changing lesions, Denies itching, Denies redness, Denies rash,Denies skin ulcer, Denies sores, Neurologic: See HPI Psychiatric: Denies anxiety, Denies behavioral changes, Denies depression, Denies memory loss, Denies hallucinations, Denies thoughts of hurting/killing others, Denies thoughts of hurting/killing self Endocrine: Denies cold intolerance, Denies excessive sweating, Denies flushing, Denies heat intolerance, Denies increased thirst, Denies weight gain or loss Hematologic/Lymphatic: Denies easy bleeding, Denies easy bruising, Denies enlarged lymph node Allergic/Immunologic: Denies GI upset with certain foods, Denies hives, Denies seasonal runny nose PMFSH - History History Provided By: Patient - Medical History Medical History: Medical History (Last Updated 01/20/18 @ 20:56 by Bonnie Melendrez RN) Acid reflux Anxiety Chronic knee pain after total replacement of both knee joints High cholesterol Lack of bladder control Neuropathy - Surgical History Surgical History: Surgical History (Last Updated 01/20/18 @ 20:56 by Bonnie Melendrez RN) History of implanted electronic device Previous back surgery - Family History Family History: Family History (Last Updated 01/21/18 @ 15:20 by Robin Brooks MD) Other Cancer - Tobacco History Tobacco Use In Past 30 Days: No Smoking Status: Former smoker - Alcohol History How Often Do You Have a Drink Containing Alcohol: 4 or more times a week - Substance Use History Substance History: No History of Abuse - Travel History Recent Travel in the [facility] Within the Last 8 Weeks: No - Immunization History Tetanus Immunization: >5 Years Medications and Allergies Active Medications: Active Medications Acetaminophen (Tylenol) 650 mg PO Q4H PRN PRN Reason: HEADACHE Last Admin: 01/21/18 12:24 Dose: 650 mg Al Hydroxide/Mg Hydroxide (Milk Of Magnesia Liq) 30 ml PO Q12H PRN PRN Reason: Mild Constipation Buspirone HCl (Buspar) 30 mg PO BID [facility] Last Admin: 01/21/18 09:35 Dose: 30 mg Clonidine HCl (Catapres) 0.1 mg PO Q6H PRN PRN Reason: SBP>160, DBP>90 Last Admin: 01/21/18 11:53 Dose: 0.1 mg Gabapentin (Neurontin) 600 mg PO BID [facility] Sodium Chloride (Ns Inj) 1,000 mls @ 100 mls/hr IV.CONT .Q10H [facility] Last Admin: 01/21/18 09:36 Dose: 100 mls/hr Miscellaneous (Pill Splitter) 1 each OTHER UNSCH PRN PRN Reason: PILL SPIT Ondansetron HCl (Zofran Inj) 4 mg IV.PUSH Q6H PRN PRN Reason: NAUSEA OR VOMITING Pantoprazole Sodium (Protonix) 20 mg PO DAILY [facility] Last Admin: 01/21/18 09:34 Dose: 20 mg Paroxetine HCl (Paxil) 10 mg PO DAILY [facility] Last Admin: 01/21/18 09:34 Dose: 10 mg Pravastatin Sodium (Pravachol) 40 mg PO BID [facility] Last Admin: 01/21/18 09:34 Dose: 40 mg Tolterodine Tartrate (Detrol La) 4 mg PO [facility] Allergies Allergy/AdvReac Type Severity Reaction Status Date / Time morphine AdvReac Severe GI UPSET Verified 01/20/18 20:58 Home Medications Medication Instructions Recorded Confirmed Type Multi Vitamin 1 tab PO DAILY 01/20/18 01/20/18 History buspirone 30 mg PO BID 01/20/18 01/20/18 History calcium citrate 600 mg PO DAILY 01/20/18 01/20/18 History cetirizine 10 mg PO DAILY PRN 01/20/18 01/20/18 History docusate sodium [Stool Softener] 1 cap PO DAILY PRN 01/20/18 01/20/18 History fentanyl citrate (PF) 2,000 mcg IM DIRECTED 01/20/18 01/20/18 History ferrous sulfate [FeroSul] 325 mg PO DAILY 01/20/18 01/20/18 History gabapentin 600 mg PO TID 01/20/18 01/20/18 History glucosamine sulfate 1 PO DAILY 01/20/18 History ketoconazole 1 applic TOPICAL BID PRN 01/20/18 01/20/18 History lovastatin 40 mg PO BID 01/20/18 01/20/18 History mirabegron [Myrbetriq] 50 mg PO HS 01/20/18 01/20/18 History omeprazole 20 mg PO DAILY 01/20/18 01/20/18 History paroxetine HCl 10 mg PO DAILY 01/20/18 01/20/18 History vitamin B complex 1 tab PO DAILY 01/20/18 01/20/18 History Exam Vital signs: Vital Signs 01/20/18 20:35 01/20/18 20:40 01/20/18 21:03 Temperature 97.6 F Pulse Rate 89 86 Respiratory Rate 20 20 Blood Pressure 80/48 L 84/54 L Pulse Oximetry 93 L 93 L 93 L 01/20/18 23:06 01/21/18 00:05 01/21/18 04:00 Temperature 97.0 F L 97.2 F L Pulse Rate 78 74 84 Respiratory Rate 20 18 18 Blood Pressure 134/68 136/69 171/81 H Pulse Oximetry 96 96 95 01/21/18 08:00 01/21/18 12:00 01/21/18 12:54 Temperature 96.5 F L 96.8 F L Pulse Rate 71 62 Respiratory Rate 18 18 18 Blood Pressure 158/83 H 183/94 H Pulse Oximetry 93 L 100 Intake & Output 01/20/18 01/21/18 01/21/18 18:59 06:59 18:59 Intake Total 500 / 500 1000 / 1000 Balance 500 / 500 1000 / 1000 Weight 111 kg Intake: IV 500 / 500 1000 / 1000 NS Inj 1,000 ML @ 100 mls/hr IV 1000 / 1000 .CONT .Q10H JASIEL Rx#:[id number] NS Inj 500 ML @ Wide Open IV. 500 / 500 SIG BOLUS ONE Rx#:[id number] Other: Weight On Admission 111 kg Narrative: GENERAL: AAOx3, no acute distress, adequate nutrition, obese SKIN: Warm and dry, abrasions on right elbow and both lower extremities HEAD: Atraumatic. Normocephalic. EYES: Pupils equal, round, reactive to light. No scleral icterus. No injection or drainage. ENT: No nasal bleeding or discharge. Moist mucous membranes. Nonerythematous oropharynx. NECK: Trachea midline. No JVD. Thyroid size within normal limits. CARDIOVASCULAR: Regular rate and rhythm. No murmur, no gallops, no rubs. RESPIRATORY: Clear and equal to auscultation bilaterally. No crackles, no wheezes. No accessory muscle use. GASTROINTESTINAL: Abdomen soft, non-tender, nondistended, normal active bowel sounds. Hepatic and splenic margins not palpable. MUSCULOSKELETAL: Extremities without clubbing or cyanosis. No obvious deformities. No edema. NEUROLOGICAL: Awake and alert. No obvious cranial nerve deficits. Motor grossly within normal limits. No focal deficits. Five out of 5 muscle strength in the arms and legs. Normal speech. PSYCHIATRIC: Appropriate mood and affect; insight and judgment normal. Results - Labs CBC & Chem 7: 01/21/18 04:45 01/21/18 04:45 Labs: Laboratory Results - last 24 hr 01/20/18 01/20/18 01/21/18 20:45 20:45 04:45 CBC w Diff Auto diff final Auto diff final WBC 8.0 6.9 RBC 3.66 L 3.47 L Hgb 11.7 L 11.0 L Hct 36.0 L 33.9 L MCV 98.3 97.5 MCH 31.8 31.8 MCHC 32.3 32.6 RDW 14.3 14.7 Plt Count 185 158 MPV 8.8 9.1 Neut % (Auto) 78.8 H 68.9 Lymph % (Auto) 17.0 22.0 [place] % (Auto) 3.4 7.9 Eos % (Auto) 0.3 0.7 Baso % (Auto) 0.5 0.5 Neut # (Auto) 6.3 4.9 Lymph # (Auto) 1.4 1.5 [place] # (Auto) 0.3 0.5 Eos # (Auto) 0.0 0.0 Baso # (Auto) 0.0 0.0 WBC Differential . . Differential Comment . . Sodium 140 Potassium 4.4 Chloride 107 Carbon Dioxide 23.4 Anion Gap 10 BUN 30 H Creatinine 1.90 H Estimated GFR 34 L Random Glucose 95 Calcium 8.5 Magnesium 1.9 Total Bilirubin 0.6 AST 13 L ALT 15 Alkaline Phosphatase 52 Troponin I Less than 0.02 L Total Protein 6.7 Albumin 3.4 01/21/18 04:45 CBC w Diff WBC RBC Hgb Hct MCV MCH MCHC RDW Plt Count MPV Neut % (Auto) Lymph % (Auto) [place] % (Auto) Eos % (Auto) Baso % (Auto) Neut # (Auto) Lymph # (Auto) [place] # (Auto) Eos # (Auto) Baso # (Auto) WBC Differential Differential Comment Sodium 141 Potassium 3.8 Chloride 108 H Carbon Dioxide 27.7 Anion Gap 5 BUN 32 H Creatinine 1.80 H Estimated GFR 37 L Random Glucose 100 Calcium 8.3 L Magnesium Total Bilirubin 0.3 AST 14 L ALT 16 Alkaline Phosphatase 48 Troponin I Total Protein 6.0 L D Albumin 3.0 L - Imaging Impressions Head CT 01/20/18 20:47 CONCLUSION: 1. Negative noncontrast head CT. . Carotid Doppler Study 01/21/18 00:00 CONCLUSION: 1. Right Internal Carotid Artery: Mild atherosclerotic plaquing at the carotid bulb extending up into the internal. No sonographic or Doppler findings of a hemodynamically significant stenosis in the internal. Elevated velocities in the external may indicate some narrowing in this vessel. 2. Left Internal Carotid Artery: Minimal atherosclerotic plaquing in the carotid bulb. No sonographic or Doppler findings of a hemodynamically significant stenosis. 3. 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 Antegrade flow in the right vertebral. Caprini VTE Risk Assessment Caprini VTE Risk Assessment: Moderate/High Risk (score >= 2) Caprini Risk Assessment Model: Point Value = 1 Point Value = 2 Point Value = 3 Point Value = 5 Age 41-60 Minor surgery BMI > 25 kg/m2 Swollen legs Varicose veins or History of unexplained or recurrent spontaneous Oral contraceptives or hormone replacement Sepsis (< 1 month) Serious lung disease, including pneumonia (< 1 month) Abnormal pulmonary function Acute myocardial infarction Congestive heart failure (< 1 month) History of inflammatory bowel disease Medical patient at bed rest Age 61-74 Arthroscopic surgery Major open surgery (> 45 min) Laparoscopic surgery (> 45 min) Malignancy Confined to bed (> 72 hours) Immobilizing plaster cast Central venous access Age >= 75 History of VTE Family history of VTE Factor V Leiden Prothrombin [id number] Lupus anticoagulant Anticardiolipin antibodies Elevated serum homocysteine Heparin-induced thrombocytopenia Other congenital or acquired thrombophilia Stroke (< 1 month) Elective arthroplasty Hip, pelvis, or leg fracture Acute spinal cord injury (< 1 month) Prophylaxis Regimen: Total Risk Factor Score Risk Level Prophylaxis Regimen 0-1 Low Early ambulation 2 Moderate Order ONE of the following: *Sequential Compression Device (SCD) *Heparin 5000 units SQ BID 3-4 Higher Order ONE of the following medications: *Heparin 5000 units SQ TID *Enoxaparin/Lovenox 40 mg SQ daily (WT < 150 kg, CrCl > 30 mL/min) *Enoxaparin/Lovenox 30 mg SQ daily (WT < 150 kg, CrCl > 10-29 mL/min) *Enoxaparin/Lovenox 30 mg SQ BID (WT < 150 kg, CrCl > 30 mL/min) AND/OR *Sequential Compression Device (SCD) 5 or more Highest Order ONE of the following medications: *Heparin 5000 units SQ TID (Preferred with Epidurals) *Enoxaparin/Lovenox 40 mg SQ daily (WT < 150 kg, CrCl > 30 mL/min) *Enoxaparin/Lovenox 30 mg SQ daily (WT < 150 kg, CrCl > 10-29 mL/min) *Enoxaparin/Lovenox 30 mg SQ BID (WT < 150 kg, CrCl > 30 mL/min) AND *Sequential Compression Device (SCD) Assessment and Plan - Plan Syncopal episode Head CT within normal limits Bilateral carotids have only mild stenosis Left vertebral artery is occluded but with anterior grade flow from the right vertebral artery Order MRI to finish stroke workup Echocardiogram to finish cardiac workup If echocardiogram is not within normal limits we will consult his slip caster Dr. Starr Extremity abrasions Mostly on lower extremity, skin tears and abrasions Consult wound care nurse for dressing selections DVT prophylaxis Lovenox
--- NOTE | 2018-01-21 18:24 | ECHRPT ---
Indication: CARDIOMYOPATHY CONCLUSIONS Normal left ventricular size. Wall thickness is measured at the upper limits of normal. The left ventricular systolic function is normal with an estimated ejection of 55%. Mild mitral valve regurgitation. There is trace tricuspid valve regurgitation. The estimated pulmonary arterial pressure is 33 mmHg. BP: / HR: Rhythm: Sinus, PVCs MEASUREMENTS (Male / Female) Normal Values Technical Quality:Fair 2D ECHO LV Diastolic Diameter PLAX 4.5 cm 4.2 - 5.9 / 3.9 - 5.3 cm LV Systolic Diameter PLAX 3.6 cm IVS Diastolic Thickness 1.0 cm 0.6 - 1.0 / 0.6 - 0.9 cm LVPW Diastolic Thickness 1.0 cm 0.6 - 1.0 / 0.6 - 0.9 cm LV Relative Wall Thickness 0.4 RV Internal Dim ED PLAX 3.1 cm LVOT Diameter 2.2 cm Aortic Root Diameter 3.3 cm LA Systolic Diameter LX 3.0 cm 3.0 - 4.0 / 2.7 - 3.8 cm M-MODE AV Cusp Separation MM 1.9 cm DOPPLER AV Peak Velocity 131.0 cm/s AV Peak Gradient 6.9 mmHg AV Mean Gradient 4.0 mmHg AV Velocity Time Integral 26.7 cm LVOT Peak Velocity 72.2 cm/s LVOT Peak Gradient 2.1 mmHg LVOT Velocity Time Integral 14.9 cm AV Area Cont Eq vti 2.1 cm AV Area Cont Eq pk 2.1 cm Mitral E Point Velocity 55.7 cm/s Mitral A Point Velocity 93.8 cm/s Mitral E to A Ratio 0.6 LV E' Septal Velocity 9.3 cm/s Mitral E to LV E' Septal Ratio 6.0 TR Peak Velocity 238.0 cm/s TR Peak Gradient 22.7 mmHg Right Atrial Pressure 10.0 mmHg Pulmonary Artery Systolic Pressu 32.7 mmHg Right Ventricular Systolic Press 32.7 mmHg PV Peak Velocity 71.4 cm/s PV Peak Gradient 2.0 mmHg FINDINGS LEFT VENTRICLE Normal left ventricular size. Wall thickness is measured at the upper limits of normal. The left ventricular systolic function is normal with an estimated ejection fraction of 55%. RIGHT VENTRICLE Normal right ventricular size and systolic function. LEFT ATRIUM The left atrial size is normal. RIGHT ATRIUM The right atrial size is normal. ATRIAL SEPTUM No atrial level shunt is demonstrated by color flow Doppler interrogation. AORTA The aortic root and proximal ascending aorta are normal in size on limited imaging. MITRAL VALVE Mild mitral valve regurgitation. AORTIC VALVE Trileaflet aortic valve. No aortic valve stenosis or regurgitation. TRICUSPID VALVE There is trace tricuspid valve regurgitation. The estimated pulmonary arterial pressure is 32.7 mmHg. PULMONARY VALVE No pulmonary valve regurgitation or stenosis. VESSELS The inferior vena cava is normal in size. PERICARDIUM No pericardial effusion. Saturnino Avalos MD, FACC (Electronically Signed) Final Date:21 January 2018 18:23
[2018-01-21] MEDS: Gabapentin 300 MG Capsule PO SCH (20:59)
[2018-01-21] MEDS ORDERED: Tolterodine Tartrate LA 4 MG Capsule PO SCH (21:00)
[2018-01-22] MEDS: Sod Chloride 0.9% Inj 1,000 ML IV.CONT SCH (05:40)
[2018-01-22 06:59] LABS: Potassium 4.3 meq/L (3.5-5.1)
[2018-01-22 07:04] LABS: Calcium 8.4 mg/dL (8.5-10.1); Carbon Dioxide 26.8 meq/L (21.0-32.0)
[2018-01-22 07:10] LABS: Hematocrit 34.2 % (39.0-51.0); Hemoglobin 11.8 gm/dL (13.0-17.0); Mean Corpuscular HGB Conc 34.4 % (32.0-36.0); Mean Platelet Volume 9.3 fL (7.0-11.0); Platelet Count 118 th/mm3 (150-450); Red Blood Count 3.56 mil/mm3 (4.50-5.90); Red Cell Distribution Width 15.3 % (11.6-17.2); White Blood Count 4.9 th/mm3 (4.0-11.0)
[2018-01-22] MEDS: Pantoprazole Sodium 20 MG DR Tablet PO SCH (09:10)
[2018-01-22] MEDS: Gabapentin 300 MG Capsule PO SCH (09:10)
[2018-01-22] MEDS: Acetaminophen 325 MG Tablet PO PRN (09:11)
[2018-01-22] MEDS ORDERED: ALPRAZolam 0.25 MG Tablet PO ONE (09:11)
[2018-01-22] MEDS ORDERED: Butalbital/APAP/Caff 50/325/40 MG Tablet PO PRN (09:11)
[2018-01-22] MEDS ORDERED: Gadobutrol PF 10 MMOL/10 ML Vial (for RAD) IV.SIG ONE (11:59)
--- NOTE | 2018-01-22 12:16 | MR ---
EXAM DATE: 01/22/2018 12:01 PM EDT AGE/SEX: 77 years / Male INDICATIONS: . Syncope. CLINICAL DATA: This is the patient's initial encounter. Patient reports that signs and symptoms have been present for 1 day and indicates a pain score of 0/10. MEDICAL/SURGICAL HISTORY: Hypercholesterolemia. Discectomy, lumbar. Total knee replacement, ri ght. Total knee replacement, left. Neurostimulator implanted and removed. Medtronic synchromed II implanted. COMPARISON: [facility], CT HEAD W/O CONTRAST, 01/20/2018. . TECHNIQUE: Multiplanar, multisequence examination of the brain was performed without and with 10 ml O mniscan (gadodiamide) contrast as a single exam dose. FINDINGS: Cerebrum: Mild symmetric cortical atrophy. The ventricles are normal for age. No evidence of midlin e shift, mass lesion, hemorrhage or acute infarction. No extraaxial fluid collections are seen. The pituitary gland and suprasellar cistern are normal in configuration. White Matter: Scattered punctate areas of focal white matter T2 prolongation, likely microvascular i schemic in etiology. Posterior Fossa: The cerebellum and brainstem are intact. The 4th ventricle is midline. The cerebel lopontine angle is unremarkable. The cerebellar tonsils are normal in position. Diffusion Imaging: No focal areas of restricted diffusion are seen. No evidence of acute infarction . Extracranial: The visualized portions of the orbits and paranasal sinuses are unremarkable. Post Contrast: No abnormal areas of parenchymal or dural enhancement. No evidence of blood-brain ba rrier breakdown. CONCLUSION: Mild atrophy. Scattered benign-appearing white matter signal changes. No acute intracranial findings. Electronically signed by: Sidney Hernandez MD 01/22/2018 12:15 PM EDT
[2018-01-22] MEDS ORDERED: Senna/Docusate Sodium 8.6/50 MG Tablet PO ONE (12:21)
[2018-01-22] MEDS ORDERED: Polyethylene Glycol 3350 17 GM Packet PO ONE (12:22)
--- NOTE | 2018-01-22 14:00 | P.DS ---
Date of admission: 01/20/18 22:21 Primary care physician: Celestino Aguirre Brief History from admission: 77-year-old male with a history of dyslipidemia, bilateral knee replacements and anxiety presents to the ER following a syncopal episode. A episode occurred following dinner last night when leaving the restaurant with his walker he became acutely dizzy and the next thing he remembers he woke up on the floor with a crowd around him. He was told that this episode was brief that he did not have seizure-like behavior. Since the occurrence he has been having a headache. He does not remember hitting his head. He had a similar episode 1 month ago at his house but did not come to the ER at that time. She denies any bowel or bladder incontinence associated with the event. DS: Summary Hospital Course: 77-year-old male who presented 2 days ago following a syncopal episode after leaving a restaurant. He fell onto his knees in front of his walker, head landed on the seat of his walker which was soft but did not land on the floor. Syncopal workup included echocardiogram, carotid ultrasound, CT brain, MRI brain. 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 He is recommended to take baby aspirin daily. Is also recommended to change his diet. He did come in with hypotension so I suggested that he keep a close eye on his blood pressure prior to taking any breath pressure medicines each day. Alternatively this could be singular vasovagal episode though the trigger does not seem obvious by his history. He is stable for discharge, instructed to follow-up with his primary care provider in the next 1-2 weeks. - Time Spent with Patient Total time spent providing and/or coordinating discharge services: Less than 30 minutes Exam Vital signs: Vital Signs 01/21/18 16:00 01/21/18 20:00 01/22/18 01:34 Temperature 96.1 F L 96.6 F L 96.6 F L Pulse Rate 66 67 54 L Respiratory Rate 18 20 20 Blood Pressure 117/64 130/75 189/82 H Pulse Oximetry 96 97 97 01/22/18 04:00 01/22/18 04:20 01/22/18 08:00 Temperature 96.7 F L 97.0 F L Pulse Rate 67 59 L Respiratory Rate 20 19 Blood Pressure 190/90 H 153/72 H 166/79 H Pulse Oximetry 95 98 01/22/18 09:08 01/22/18 12:00 Temperature 97.4 F L Pulse Rate 63 Respiratory Rate 21 Blood Pressure 124/78 130/80 Pulse Oximetry 98 Intake & Output 01/21/18 01/22/18 01/22/18 18:59 06:59 18:59 Intake Total 1890 / 1890 2480 / 2480 710 / 710 Output Total 1300 / 1300 1300 / 1300 300 / 300 Balance 590 / 590 1180 / 1180 410 / 410 Weight 111 kg 110.7 kg Intake: IV 1000 / 1000 1999 / 1999 230 / 230 NS Inj 1,000 ML @ 100 mls/hr IV 1000 / 1000 1999 / 2000 230 / 230 .CONT .Q10H JASIEL Rx#:[id number] Oral 890 / 890 480 / 480 480 / 480 Output: Urine 1300 / 1300 1300 / 1300 300 / 300 Other: # Bowel Movements 0 Weight On Admission 111 kg Results Procedures completed during hospitalization: none Labs on day of discharge: Labs from last 24 hours 01/22/18 01/22/18 06:25 06:25 WBC 4.9 RBC 3.56 L Hgb 11.8 L Hct 34.2 L MCV 96.0 MCH 33.0 MCHC 34.4 RDW 15.3 Plt Count 118 L MPV 9.3 Sodium 143 Potassium 4.3 Chloride 111 H Carbon Dioxide 26.8 Anion Gap 5 BUN 22 H Creatinine 1.20 Estimated GFR 58 L Random Glucose 83 Calcium 8.4 L - Impressions ITS Impressions Head CT 01/20/18 20:47 CONCLUSION: 1. Negative noncontrast head CT. . Carotid Doppler Study 01/21/18 00:00 CONCLUSION: 1. Right Internal Carotid Artery: Mild atherosclerotic plaquing at the carotid bulb extending up into the internal. No sonographic or Doppler findings of a hemodynamically significant stenosis in the internal. Elevated velocities in the external may indicate some narrowing in this vessel. 2. Left Internal Carotid Artery: Minimal atherosclerotic plaquing in the carotid bulb. No sonographic or Doppler findings of a hemodynamically significant stenosis. 3. 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 Antegrade flow in the right vertebral. Head MRI 01/22/18 00:00 CONCLUSION: Mild atrophy. Scattered benign-appearing white matter signal changes. No acute intracranial findings. Discharge Plan - Discharge Disposition Patient Disposition: 01 Discharge Home - Discharge Condition Condition: Stable - Discharge Order Discharge Orders: Discharge Order (Routine); Ordered 01/22/18 Ordered By: Robin Brooks - Physicians Team Primary Care Provider: Celestino Aguirre Attending Provider: Robin Brooks
--- NOTE | 2018-01-22 14:25 | P.DCO ---
- Physical Therapy Order: Evaluate and treat - Certification I have seen patient Duke Hallman on 01/22/18. My clinical findings support the need for the requested home health care services because: Limited mobility due to disease progression, Deconditioned with increased weakness, High risk of falls I certify that my clinical findings support that this patient is homebound because: Unsteady gait/balance, Unsafe to leave home unassisted, Unable to use public transportation
== END 2018-01-22 15:27 | disposition home health service (06) ==
LOC: PHEDA 20:27 → PHED 20:27 → PH3 20:27
PROVIDERS: ADMIT Family Medicine; ATTEND Family Medicine
DX: K21.9 Gastro-esophageal reflux disease without esophagitis; R51 Headache; S80.211A Abrasion, right knee, initial encounter; F41.9 Anxiety disorder, unspecified; I95.1 Orthostatic hypotension; S80.212A Abrasion, left knee, initial encounter; S50.312A Abrasion of left elbow, initial encounter; W19.XXXA Unspecified fall, initial encounter; Z79.82 Long term (current) use of aspirin; Z87.891 Personal history of nicotine dependence; R55 Syncope and collapse; E78.00 Pure hypercholesterolemia, unspecified; G89.29 Other chronic pain; S50.311A Abrasion of right elbow, initial encounter; G62.9 Polyneuropathy, unspecified; Y92.511 Restaurant or cafe as the place of occurrence of the external cause; E78.5 Hyperlipidemia, unspecified; I65.02 Occlusion and stenosis of left vertebral artery

== ENCOUNTER 2018-02-15 20:33 | Inpatient (IN) ==
--- NOTE | 2018-02-15 20:42 | ED ---
HPI General Chief complaint: Stroke Alert Stated complaint: pt confused/evac Time Seen by Provider: 02/15/18 20:37 Source: patient Mode of arrival: EMS Limitations: no limitations History of Present Illness HPI narrative: The patient is a 77 year old male who presents to the [facility] emergency department with a history of reportedly last being seen normal at approximately 7:45 PM. The patient ate dinner in his usual fashion and was completely asymptomatic and then was noted to be altered by family. According to ambulance services upon their arrival the patient was confused and unable to answer any questions including following commands or state his name. The patient in route to this facility on supplemental oxygen in spite of having a normal O2 saturation had clearance of his mentation. The patient arrives awake and alert. The patient is noted to have a mild left-sided facial droop, however according to ambulance services no other focal findings on his neurologic examination. BS 149. The patient reports having a mild headache over the forehead area. The patient denies any prior history of stroke. He reports that he is on a low-dose aspirin daily. He reports that he does believe that he took it today. He cannot recall any of the events that occurred just prior to arrival when he was confused. The patient has no known prior history of seizures. The patient is noted to have a bandage on his upper abdomen and in his back. The patient reports that he did have a skin cancer removed from both of these sites he believes last week. On review of systems otherwise, the patient denies having any known recent fevers, cough, congestion , neck pain, chest pain, shortness of breath, abdominal pain, vomiting, diarrhea , urinary symptoms, one-sided weakness, slurred speech, difficulty with word finding ability, vision changes, or new numbness or tingling to his extremities. Upon the patient's 's arrival, she reports that the patient was heard in the other room banging into something. She reports that he was walking with his walker and hit the wall. When she walked into check on him he was sitting down in the she reports that when she came over to check on him he was altered. She reports that he has been having similar events in the past that has been in the process of being worked up by a neurologist as an outpatient. Related Data Home Medications Medication Instructions Recorded Confirmed Multi Vitamin 1 tab PO DAILY 01/20/18 02/15/18 buspirone 30 mg PO BID 01/20/18 02/15/18 calcium citrate 600 mg PO DAILY 01/20/18 02/15/18 cetirizine 10 mg PO DAILY PRN 01/20/18 02/15/18 docusate sodium [Stool Softener] 1 cap PO DAILY PRN 01/20/18 02/15/18 fentanyl citrate (PF) 2,000 mcg IM DIRECTED 01/20/18 02/15/18 ferrous sulfate [FeroSul] 325 mg PO DAILY 01/20/18 02/15/18 gabapentin 600 mg PO TID 01/20/18 02/15/18 glucosamine sulfate 1 mg PO DAILY 01/20/18 02/15/18 ketoconazole 1 applic TOPICAL BID PRN 01/20/18 02/15/18 lovastatin 40 mg PO BID 01/20/18 02/15/18 mirabegron [Myrbetriq] 50 mg PO HS 01/20/18 02/15/18 omeprazole 20 mg PO DAILY 01/20/18 02/15/18 paroxetine HCl 10 mg PO DAILY 01/20/18 02/15/18 vitamin B complex 1 tab PO DAILY 01/20/18 02/15/18 Previous Rx's Medication Instructions Recorded aspirin [Adult Low Dose Aspirin] 1 mg/kg PO DAILY 30 Days #30 tab 01/22/18 Allergies Allergy/AdvReac Type Severity Reaction Status Date / Time morphine AdvReac Severe GI UPSET Verified 02/15/18 21:44 Review of Systems ROS: all other systems reviewed are negative PMFSH History History Provided By: Patient, Family Member, 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 Medical History Medical History Acid reflux (Acute) Anxiety (Acute) Chronic knee pain after total replacement of both knee joints (Acute) High cholesterol (Acute) Lack of bladder control (Acute) Neuropathy (Acute) Surgical History Surgical History History of implanted electronic device (Acute) Previous back surgery (Acute) Family History Family History Other Cancer Social History Social History Substance History: No History of Abuse Second Hand Smoke Exposure: No Smoking Status: Former smoker How Often Do You Have a Drink Containing Alcohol: 4 or more times a week Recent Travel in [facility] within the Last 8 Weeks: No Recent Out of Country Travel within the Last 8 Weeks: No Exam Const General: cooperative, no acute distress and well developed Nutritional Appearance: well nourished Orientation: alert, awake and oriented x3 HENMT Head: normocephalic and atraumatic Nose: no nasal discharge and no epistaxis Mouth: moist mucous membranes Eyes Sclera: normal sclerae Pupils: PERRL Neck Neck: no meningeal signs, trachea midline and no JVD Resp Effort & Inspection: no use of accessory muscles Auscultation: clear to auscultation bilaterally Cardio Rate: regular rate Rhythm: regular rhythm Heart Sounds: no gallops, no murmurs and no rubs GI Inspection: non-distended Palpation: soft, no hepatosplenomegaly and nontender Auscultation: normal bowel sounds Back/Spine/Pelvis Back: no CVA tenderness Skin General: dry skin (warm) Neuro General: alert, awake and oriented x3 Cranial Nerves: other (The patient is noted to have a mild left-sided facial droop, otherwise cranial nerves II through XII are intact bilaterally.) Speech: speech normal Motor: strength not 5/5 throughout, no movement abnormalities noted and strength abnormal (The patient's left upper and left lower extremity drift prior to 10 seconds and 5 seconds respectively.) Sensory Exam: no sensory deficits noted Coordination: [id number] test normal and [id number] test normal Extrem General: normal to inspection (No calf tenderness on palpation. 2+ pulses in all 4 extremities.), no clubbing, no cyanosis and no edema Psych Mood: congruent mood Affect: normal affect Judgment: judgment good Course Consultations Consultation #1: The patient's case including history, pertinent physical examination findings, and laboratory studies were discussed with Dr. Seay, the neurologist, at approximately 7:45PM. Consultation #2: The patient's case including history, pertinent physical examination findings, and laboratory studies were discussed with Dr. Sol. It was agreed that the patient would be admitted to the hospitalist service. Initial Documented Vital Signs Temperature 97.4 F L 02/15/18 20:33 Pulse Rate 88 02/15/18 20:33 Respiratory Rate 18 02/15/18 20:33 Blood Pressure 139/85 02/15/18 20:33 Pulse Oximetry 96 02/15/18 20:33 Last Documented Vital Signs Temperature 98.1 F 02/16/18 15:56 Pulse Rate 87 02/16/18 15:56 Respiratory Rate 16 02/16/18 15:56 Blood Pressure 186/93 H 02/16/18 15:56 Pulse Oximetry 95 02/16/18 19:48 NIH Stroke Scale NIHSS Time Completed NIHSS Time Completed: 20:40 NIH Stroke Scale Level of Consciousness: 0-Alert Orientation Questions: 0-Answers both correct Responds to Commands: 0-Both tasks correct Gaze Eye Movement: 0-Horizontal movement WNL Visual Kerr: 0-No visual field defect Facial Movement: 1-Minor facial palsy Motor Functions Arm LEFT: 1-Drift before 10 seconds Motor Functions Arm RIGHT: 0-No drift Motor Functions Leg LEFT: 1-Drift before 5 seconds Motor Functions Leg RIGHT: 0-No drift Limb Ataxia: 0-No ataxia Sensory Loss: 0-No sensory loss Best Language: 0-Normal Articulation: 0-Normal Extinction or Inattention Sensory: 0-Absent Total: 3 Medical Decision Making MDM Narrative Medical decision making narrative: During the course of the patient's emergency department visit, the patient's history, examination, and differential diagnosis were reviewed with the patient. The patient was placed on a rn cardiac with oximetry and frequent blood pressure monitoring. The patient had IV access obtained and blood work sent for analysis. A stroke alert was called on this patient. The patient was last seen normal reportedly at approximately 7 :45 PM. The patient's head of the bed was placed flat. The patient was started on normal saline at 70 mL/h. An i-STAT with creatinine was ordered. A call was placed out to the neurologist correctional supervisor lieutenant. I spoke to the neurologist, Dr. Seay at 7:45PM. Due to the patient's altered mentation that has since cleared in route to this facility and NIH score being low, she recommended continued evaluation with a CTA of the head and neck following the CT scan of the brain without contrast. She recommended serial examinations prior to any TPA being recommended. The patient on reevaluation continues to overall be improved compared to his initial evaluation by ambulance services and reported altered mentation by his . The patient's diagnostic evaluation is remarkable for a white count of 7.6, hemoglobin 11, platelets 165 with a normal differential, PT 9.8, PTT 21.7, chemistry is remarkable for a BUN of 24, creatinine 1.9, glucose 134, initial set of cardiac enzymes are within normal limits. CT scan of the brain showed no acute abnormality, CTA of the head showed no acute abnormality, neck CTA revealed atherosclerotic plaque noted at both carotid bifurcations with focal short segment mild to moderate stenosis at the origin of the left internal carotid artery approximately 50%. Focal narrowing involving the proximal right internal carotid artery measuring less than 50%. Vertebral arteries remain patent with dominant right vertebral artery. I spoke to Dr. Seay again regarding this patient's case. As the patient's symptoms have overall improved and the patient's symptoms are not clearly related to a cerebrovascular accident, she does not recommend TPA administration at this time. She did recommend a full dose aspirin. She recommends that the patient be admitted and have an EEG. The patient's results were discussed with the patient, including the plan of care. I explained that further testing and/ or monitoring is indicated based on the patient's history, examination, and/ or laboratory findings. Therefore, I recommended admission for additional evaluation. The patient expressed understanding and was agreeable with this plan. The patient was admitted to the hospital in stable condition and sent to a bed under the care of the [facility] service. Medical Screen Exam Complete: Yes Emergency Medical Condition: Yes Differential Diagnosis Differential Diagnosis: Ischemic stroke, versus hemorrhagic stroke, versus intracranial mass, versus seizure activity, versus encephalopathy Medical Records Medical records reviewed: Yes I reviewed the patient's medical records. Lab Data Lab results reviewed: Yes I reviewed the patient's lab results. Result diagrams: 02/15/18 20:35 Lab Results 02/15/18 02/15/18 02/15/18 Range/Units 20:35 20:35 20:35 WBC 7.6 (4.0-11.0) th/mm3 RBC 3.31 L (4.50-5.90) mil/mm3 Hgb 11.0 L (13.0-17.0) gm/dL POC Hgb (Calc) 11.2 L (13.0-17.0) g/dL Hct 32.9 L (39.0-51.0) % POC Hct 33.0 L (39-51.0) % MCV 99.4 (80.0-100.0) fL MCH 33.1 (27.0-34.0) pg MCHC 33.3 (32.0-36.0) % RDW 14.8 (11.6-17.2) % Plt Count 165 D (150-450) th/mm3 MPV 9.2 (7.0-11.0) fL Neut % (Auto) 60.5 (16.0-70.0) % Lymph % (Auto) 30.0 (9.0-44.0) % Adams % (Auto) 5.9 (0.0-8.0) % Eos % (Auto) 2.6 (0.0-4.0) % Baso % (Auto) 1.0 (0.0-2.0) % Neut # (Auto) 4.6 (1.8-7.7) th/mm3 Lymph # (Auto) 2.3 (1.0-4.8) th/mm3 Adams # (Auto) 0.5 (0.0-0.9) th/mm3 Eos # (Auto) 0.2 (0.0-0.4) th/mm3 Baso # (Auto) 0.1 (0.0-0.2) th/mm3 WBC Differential . Differential Comment Auto diff final PT 9.8 (9.8-11.6) sec INR 1.0 Ratio APTT 21.7 L (24.3-30.1) sec Fibrinogen 322 (227-377) mg/dL POC Sodium 141 (137-144) mmol/L POC Potassium 4.1 (3.6-5.0) mmol/L POC Chloride 108 (102-111) mmol/L POC BUN 24 H (5-21) mg/dL POC Creatinine 1.9 H (0.6-1.3) mg/dL POC Glucose 134 H (68-110) mg/dL Hemoglobin A1c (4.3-6.0) % Total Creatine Kinase 48 (39-308) U/L Troponin I Less than 0.02 L (0.02-0.05) ng/mL Triglycerides (42-150) mg/dL Cholesterol (120-200) mg/dL LDL Cholesterol, Calc (0-99) mg/dL HDL Cholesterol (40.0-60.0) mg/dL Cholesterol/HDL Ratio Ratio Urine Color (Yellw/Straw) Urine Clarity (Clear) Urine pH (5.0-8.5) Ur Specific Chester (1.002-1.035) Urine Protein (Neg-Trace) mg/dL Urine Glucose (UA) (Negative) mg/dL Urine Ketones (Negative) mg/dL Urine Occult Blood (Negative) Urine Nitrate (Negative) Urine Bilirubin (Negative) Urine Urobilinogen (Less than 2) mg/dL Ur Leukocyte Esterase (Negative) Urine RBC (0-3) /hpf Urine WBC (0-5) /hpf Ur Squamous Epith Cells (0-5) /hpf Hyaline Casts (0-3) /lpf Micro UA Comment Ur Microscopic Review Urine Culture Comments Urine Opiates Screen (Neg) Ur Barbiturates Screen (Neg) Ur Amphetamines Screen (Neg) U Benzodiazepines Scrn (Neg) Urine Cocaine Screen (Neg) U Cannabinoids Screen (Neg) Blood Type Antibody Screen 02/15/18 02/15/18 02/15/18 Range/Units 20:35 21:53 22:00 WBC (4.0-11.0) th/mm3 RBC (4.50-5.90) mil/mm3 Hgb (13.0-17.0) gm/dL POC Hgb (Calc) (13.0-17.0) g/dL Hct (39.0-51.0) % POC Hct (39-51.0) % MCV (80.0-100.0) fL MCH (27.0-34.0) pg MCHC (32.0-36.0) % RDW (11.6-17.2) % Plt Count (150-450) th/mm3 MPV (7.0-11.0) fL Neut % (Auto) (16.0-70.0) % Lymph % (Auto) (9.0-44.0) % Adams % (Auto) (0.0-8.0) % Eos % (Auto) (0.0-4.0) % Baso % (Auto) (0.0-2.0) % Neut # (Auto) (1.8-7.7) th/mm3 Lymph # (Auto) (1.0-4.8) th/mm3 Adams # (Auto) (0.0-0.9) th/mm3 Eos # (Auto) (0.0-0.4) th/mm3 Baso # (Auto) (0.0-0.2) th/mm3 WBC Differential Differential Comment PT (9.8-11.6) sec INR Ratio APTT (24.3-30.1) sec Fibrinogen (227-377) mg/dL POC Sodium (137-144) mmol/L POC Potassium (3.6-5.0) mmol/L POC Chloride (102-111) mmol/L POC BUN (5-21) mg/dL POC Creatinine (0.6-1.3) mg/dL POC Glucose (68-110) mg/dL Hemoglobin A1c (4.3-6.0) % Total Creatine Kinase (39-308) U/L Troponin I (0.02-0.05) ng/mL Triglycerides (42-150) mg/dL Cholesterol (120-200) mg/dL LDL Cholesterol, Calc (0-99) mg/dL HDL Cholesterol (40.0-60.0) mg/dL Cholesterol/HDL Ratio Ratio Urine Color Yellow (Yellw/Straw) Urine Clarity Clear (Clear) Urine pH 5.0 (5.0-8.5) Ur Specific Chester 1.026 (1.002-1.035) Urine Protein 30 H (Neg-Trace) mg/dL Urine Glucose (UA) Negative (Negative) mg/dL Urine Ketones Negative (Negative) mg/dL Urine Occult Blood Negative (Negative) Urine Nitrate Negative (Negative) Urine Bilirubin Negative (Negative) Urine Urobilinogen Less than 2 (Less than 2) mg/dL Ur Leukocyte Esterase Negative (Negative) Urine RBC Less than 1 (0-3) /hpf Urine WBC 1 (0-5) /hpf Ur Squamous Epith Cells <1 (0-5) /hpf Hyaline Casts 1 (0-3) /lpf Micro UA Comment Cath-culture not ind Ur Microscopic Review Not Reportable Urine Culture Comments Cath-cult not ind Urine Opiates Screen Neg (Neg) Ur Barbiturates Screen Neg (Neg) Ur Amphetamines Screen Neg (Neg) U Benzodiazepines Scrn Neg (Neg) Urine Cocaine Screen Neg (Neg) U Cannabinoids Screen Neg (Neg) Blood Type O Positive Antibody Screen Negative 02/16/18 02/16/18 02/16/18 Range/Units 03:55 03:55 07:42 WBC (4.0-11.0) th/mm3 RBC (4.50-5.90) mil/mm3 Hgb (13.0-17.0) gm/dL POC Hgb (Calc) (13.0-17.0) g/dL Hct (39.0-51.0) % POC Hct (39-51.0) % MCV (80.0-100.0) fL MCH (27.0-34.0) pg MCHC (32.0-36.0) % RDW (11.6-17.2) % Plt Count (150-450) th/mm3 MPV (7.0-11.0) fL Neut % (Auto) (16.0-70.0) % Lymph % (Auto) (9.0-44.0) % Adams % (Auto) (0.0-8.0) % Eos % (Auto) (0.0-4.0) % Baso % (Auto) (0.0-2.0) % Neut # (Auto) (1.8-7.7) th/mm3 Lymph # (Auto) (1.0-4.8) th/mm3 Adams # (Auto) (0.0-0.9) th/mm3 Eos # (Auto) (0.0-0.4) th/mm3 Baso # (Auto) (0.0-0.2) th/mm3 WBC Differential Differential Comment PT (9.8-11.6) sec INR Ratio APTT (24.3-30.1) sec Fibrinogen (227-377) mg/dL POC Sodium (137-144) mmol/L POC Potassium (3.6-5.0) mmol/L POC Chloride (102-111) mmol/L POC BUN (5-21) mg/dL POC Creatinine (0.6-1.3) mg/dL POC Glucose 90 (68-110) mg/dL Hemoglobin A1c 5.6 (4.3-6.0) % Total Creatine Kinase (39-308) U/L Troponin I (0.02-0.05) ng/mL Triglycerides 445 H (42-150) mg/dL Cholesterol 203 H (120-200) mg/dL LDL Cholesterol, Calc (0-99) mg/dL HDL Cholesterol 67.0 H (40.0-60.0) mg/dL Cholesterol/HDL Ratio 3.02 Ratio Urine Color (Yellw/Straw) Urine Clarity (Clear) Urine pH (5.0-8.5) Ur Specific Chester (1.002-1.035) Urine Protein (Neg-Trace) mg/dL Urine Glucose (UA) (Negative) mg/dL Urine Ketones (Negative) mg/dL Urine Occult Blood (Negative) Urine Nitrate (Negative) Urine Bilirubin (Negative) Urine Urobilinogen (Less than 2) mg/dL Ur Leukocyte Esterase (Negative) Urine RBC (0-3) /hpf Urine WBC (0-5) /hpf Ur Squamous Epith Cells (0-5) /hpf Hyaline Casts (0-3) /lpf Micro UA Comment Ur Microscopic Review Urine Culture Comments Urine Opiates Screen (Neg) Ur Barbiturates Screen (Neg) Ur Amphetamines Screen (Neg) U Benzodiazepines Scrn (Neg) Urine Cocaine Screen (Neg) U Cannabinoids Screen (Neg) Blood Type Antibody Screen 02/16/18 02/16/18 Range/Units 13:38 18:43 WBC (4.0-11.0) th/mm3 RBC (4.50-5.90) mil/mm3 Hgb (13.0-17.0) gm/dL POC Hgb (Calc) (13.0-17.0) g/dL Hct (39.0-51.0) % POC Hct (39-51.0) % MCV (80.0-100.0) fL MCH (27.0-34.0) pg MCHC (32.0-36.0) % RDW (11.6-17.2) % Plt Count (150-450) th/mm3 MPV (7.0-11.0) fL Neut % (Auto) (16.0-70.0) % Lymph % (Auto) (9.0-44.0) % Adams % (Auto) (0.0-8.0) % Eos % (Auto) (0.0-4.0) % Baso % (Auto) (0.0-2.0) % Neut # (Auto) (1.8-7.7) th/mm3 Lymph # (Auto) (1.0-4.8) th/mm3 Adams # (Auto) (0.0-0.9) th/mm3 Eos # (Auto) (0.0-0.4) th/mm3 Baso # (Auto) (0.0-0.2) th/mm3 WBC Differential Differential Comment PT (9.8-11.6) sec INR Ratio APTT (24.3-30.1) sec Fibrinogen (227-377) mg/dL POC Sodium (137-144) mmol/L POC Potassium (3.6-5.0) mmol/L POC Chloride (102-111) mmol/L POC BUN (5-21) mg/dL POC Creatinine (0.6-1.3) mg/dL POC Glucose 83 100 (68-110) mg/dL Hemoglobin A1c (4.3-6.0) % Total Creatine Kinase (39-308) U/L Troponin I (0.02-0.05) ng/mL Triglycerides (42-150) mg/dL Cholesterol (120-200) mg/dL LDL Cholesterol, Calc (0-99) mg/dL HDL Cholesterol (40.0-60.0) mg/dL Cholesterol/HDL Ratio Ratio Urine Color (Yellw/Straw) Urine Clarity (Clear) Urine pH (5.0-8.5) Ur Specific Chester (1.002-1.035) Urine Protein (Neg-Trace) mg/dL Urine Glucose (UA) (Negative) mg/dL Urine Ketones (Negative) mg/dL Urine Occult Blood (Negative) Urine Nitrate (Negative) Urine Bilirubin (Negative) Urine Urobilinogen (Less than 2) mg/dL Ur Leukocyte Esterase (Negative) Urine RBC (0-3) /hpf Urine WBC (0-5) /hpf Ur Squamous Epith Cells (0-5) /hpf Hyaline Casts (0-3) /lpf Micro UA Comment Ur Microscopic Review Urine Culture Comments Urine Opiates Screen (Neg) Ur Barbiturates Screen (Neg) Ur Amphetamines Screen (Neg) U Benzodiazepines Scrn (Neg) Urine Cocaine Screen (Neg) U Cannabinoids Screen (Neg) Blood Type Antibody Screen Imaging Data Radiologist's impression: Chest X-Ray 02/15/18 20:38 CONCLUSION: No acute cardiopulmonary disease. Head CT 02/15/18 20:38 CONCLUSION: 1. Stable negative noncontrast head CT. Report was called by [Dr Esquivel to Dr Berrios at 20:58 ] Head CTA 02/15/18 20:38 CONCLUSION: 1. The CTA remains unremarkable in appearance from the prior study performed 3 days ago for a large imaging. Neck CTA 02/15/18 20:38 CONCLUSION: 1. Atherosclerotic plaque again noted at both carotid bifurcations with focal short segment mild to moderate stenosis at the origin of the left internal carotid artery approximately 50%. There is focal narrowing involving the proximal right internal carotid artery measuring less than 50% diameter. This does not appear significantly changed. 2. The vertebral arteries remain patent with dominant right vertebral artery. Head MRI 02/16/18 00:00 CONCLUSION: 1. No evidence of acute infarct, hemorrhage, mass or edema. 2. Cerebral white matter disease characteristic of mild chronic ischemic white matter changes. No significant change since prior study. ECG Data Interpretation: The patient's EKG showed a sinus rhythm, no other acute abnormality. Discharge Plan Discharge Disposition Patient Disposition: 30 Still Patient Discharge Details Diagnosis: Acute focal neurological deficit Physicians Team ED Provider: Leslye Berrios Primary Care Provider: Celestino Aguirre Attending Provider: Oscar Gaxiola Other Providers: Daiana Seay ; Hossein Iniguez ; Josias De Jesus Discharge Interventions Interventions: ED Discharge Assessment Last Done: 02/15/18 23:31 Status ED Status: Left Department Discharge Information Discharge Date/Time: 02/15/18 23:32
[2018-02-15] MEDS ORDERED: Sod Chloride 0.9% Inj 1,000 ML IV.CONT SCH (20:45)
--- NOTE | 2018-02-15 21:00 | CT ---
EXAM DATE: 02/15/2018 8:54 PM EDT AGE/SEX: 77 years / Male INDICATIONS: Stroke alert. Left facial droop and left side weakness. CLINICAL DATA: This is the patient's initial encounter. Patient reports that signs and symptoms have been present for 1 day and indicates a pain score of Nonresponsive. MEDICAL/SURGICAL HISTORY: Non-responsive. Non-responsive. RADIATION DOSE: 33.44 CTDI (mGy) COMPARISON: [facility], CT HEAD W/O CONTRAST, 01/20/2018. . TECHNIQUE: CT of the head without contrast. Using automated exposure control and adjustment of the mA and/or kV according to patient size, radiation dose was kept as low as reasonably achievable to ob tain optimal diagnostic quality images. DICOM format image data is available electronically for revi ew and comparison. FINDINGS: Cerebrum: The ventricles are normal for age. No evidence of midline shift, mass lesion, hemorrhage or acute infarction. No extraaxial fluid collections are seen. Posterior Fossa: The cerebellum and brainstem are intact. The 4th ventricle is midline. The cerebe llopontine angle is unremarkable. Extracranial: The visualized portion of the orbits is intact. Skull: The calvaria is intact. No evidence of skull fracture. CONCLUSION: 1. Stable negative noncontrast head CT. Report was called by [Dr Esquivel to Dr Berrios at 20:58 ] Electronically signed by: Toby Esquivel MD 02/15/2018 8:59 PM EDT
[2018-02-15 21:06] LABS: Baso # (Auto) 0.1 th/mm3 (0.0-0.2); Eos # (Auto) 0.2 th/mm3 (0.0-0.4); Eos % (Auto) 2.6 % (0.0-4.0); Hematocrit 32.9 % (39.0-51.0); Lymph # (Auto) 2.3 th/mm3 (1.0-4.8); Mean Corpuscular HGB Conc 33.3 % (32.0-36.0); Mean Corpuscular Hemoglobin 33.1 pg (27.0-34.0); Mean Corpuscular Volume 99.4 fL (80.0-100.0); Mean Platelet Volume 9.2 fL (7.0-11.0); Mono # (Auto) 0.5 th/mm3 (0.0-0.9); Mono % (Auto) 5.9 % (0.0-8.0); Neut # (Auto) 4.6 th/mm3 (1.8-7.7); Neut % (Auto) 60.5 % (16.0-70.0); Platelet Count 165 th/mm3 (150-450); Red Blood Count 3.31 mil/mm3 (4.50-5.90); Red Cell Distribution Width 14.8 % (11.6-17.2); White Blood Count 7.6 th/mm3 (4.0-11.0)
[2018-02-15 21:18] LABS: Activated Partial Thrombo Time 21.7 sec (24.3-30.1); Prothrombin Time 9.8 sec (9.8-11.6)
--- NOTE | 2018-02-15 21:18 | CT ---
EXAM DATE: 02/15/2018 9:10 PM EDT AGE/SEX: 77 years / Male INDICATIONS: Stroke alert, left facial droop and left side weakness. CLINICAL DATA: This is the patient's initial encounter. Patient reports that signs and symptoms have been present for 1 day and indicates a pain score of Nonresponsive. MEDICAL/SURGICAL HISTORY: Non-responsive. Non-responsive. RADIATION DOSE: 28.16 CTDI (mGy) ; Combined studies COMPARISON: [facility], CTA HEAD, 02/12/2018. . TECHNIQUE: Volumetric scanning was performed using a multi-row detector CT scanner during bolus infu willis of 75 ml Visipaque 320 (iodixanol) nonionic water-soluble contrast as a cumulative dose for mul tiple exams. The data was post processed with a variety of visualization algorithms including full volume maximum intensity projection, multi-planar sliding thin slab reformation, curved planar reform ation, and surface rendering techniques. Using automated exposure control and adjustment of the mA a nd/or kV according to patient size, radiation dose was kept as low as reasonably achievable to obtain optimal diagnostic quality images. DICOM format image data is available electronically for review a nd comparison. FINDINGS: There is excellent visualization of the major intracranial arteries out to the second-order branch ve ssels. There is no evidence for aneurysm, vessel truncation or stenosis, and no evidence for vascula r malformation. CONCLUSION: 1. The CTA remains unremarkable in appearance from the prior study performed 3 days ago for a large imaging. Electronically signed by: Toby Esquivel MD 02/15/2018 9:17 PM EDT
--- NOTE | 2018-02-15 21:19 | XR ---
EXAM DATE: 02/15/2018 9:13 PM EDT AGE/SEX: 77 years / Male INDICATIONS: Stroke alert. Left facial droop and left-sided weakness. CLINICAL DATA: This is the patient's initial encounter. Patient reports that signs and symptoms have been present for 1 day and indicates a pain score of 0/10. MEDICAL/SURGICAL HISTORY: . Hypercholesterolemia. Acid reflux. Anxiety. Bladder incontinence. N europathy. . . Bilateral knee replacement. Back surgery. Fentanyl pain pump implant. COMPARISON: [facility] [place] [facility] [place], [place]25/2017. . FINDINGS: A single AP view of the chest demonstrates the lungs to be symmetrically aerated without evidence of mass, infiltrate or effusion. The cardiomediastinal contours are unremarkable. Osseous structures a re intact. CONCLUSION: No acute cardiopulmonary disease. Electronically signed by: Toby Esquivel MD 02/15/2018 9:17 PM EDT
[2018-02-15 21:35] LABS: Creatine Kinase 48 U/L (39-308)
--- NOTE | 2018-02-15 21:38 | CT ---
EXAM DATE: 02/15/2018 9:20 PM EDT AGE/SEX: 77 years / Male INDICATIONS: Stroke alert, left facial droop and left side weakness. CLINICAL DATA: This is the patient's initial encounter. Patient reports that signs and symptoms have been present for 1 day and indicates a pain score of Nonresponsive. MEDICAL/SURGICAL HISTORY: Non-responsive. Non-responsive. RADIATION DOSE: 28.16 CTDI (mGy) ; Combined studies COMPARISON: [facility], CTA CAROTID ARTERIES, 02/12/2018. . TECHNIQUE: Volumetric scanning was performed using a multirow detector CT scanner during bolus infus ion of 75 ml Visipaque 320 (iodixanol) nonionic water-soluble contrast as a cumulative dose for mult iple exams. The data was postprocessed with a variety of visualization algorithms including full-vo lume maximum intensity projection, multiplanar sliding thin-slab reformation, curved-planar reformati on, and surface-rendering techniques. Using automated exposure control and adjustment of the mA and/ or kV according to patient size, radiation dose was kept as low as reasonably achievable to obtain op timal diagnostic quality images. DICOM format image data is available electronically for review and comparison. FINDINGS: Aortic Arch: There is a three-vessel origin of the great vessels from the aorta. No evidence of ost ial narrowing Right Carotid: The right common carotid artery is patent. Calcified plaque is again noted at the lev el of bifurcation with no focal high-grade or significant stenosis. There is short segment narrowing involving the proximal internal carotid artery measuring less than 50% in diameter. The external fisher tid artery is patent.. Left Carotid: The left common carotid arteries patent. There is some soft calcified plaque at the le ann of the bifurcation with mild to moderate stenosis at the origin of the left internal carotid mayank ry of approximately 50%. The left external carotid arteries patent. Vertebrals: The vertebral arteries have a symmetric diameter. No stenotic lesions are seen. A right dominant vertebral artery system is again noted. Percent stenosis is calculated using the diameter of the stenotic region over the diameter of the nor mal distal internal carotid artery. CONCLUSION: 1. Atherosclerotic plaque again noted at both carotid bifurcations with focal short segment mild to moderate stenosis at the origin of the left internal carotid artery approximately 50%. There is focal narrowing involving the proximal right internal carotid artery measuring less than 50% diameter. Thi s does not appear significantly changed. 2. The vertebral arteries remain patent with dominant right vertebral artery. Electronically signed by: Toby Esquivel MD 02/15/2018 9:37 PM EDT
[2018-02-15] MEDS ORDERED: Dextrose 50% in Water 50 ML Vial IV.PUSH PRN (21:47)
--- NOTE | 2018-02-15 21:52 | P.HPIM ---
History of Present Illness Primary Care Physician: Celestino Aguirre History of Present Illness: This is a 77-year-old male with a PMH of HTN, Hyperlipidemia, Peripheral Neuropathy and Chronic Pain s/p Pain Pump Implantation who was brought to the ER by EMS for episode of AMS. 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 states pt has been seen by Neurologist, Dr. Cortez, since discharge and had multiple imaging procedures and lab work done this week. states pt was doing well today, had gotten up to go to the bathroom w/ his walker when she heard a loud noise. States she found patient "not looking right " and tried to assist him on his walker when he "just slumped over" and was unresponsive. notes no seizure-like activity, states episode lasted approx 30min until EMS arrived. Noted to have significant confusion and left facial droop. Pt w/ no recollection of any events. On arrival, BP 139/85, HR 88, O2 sat 96% on 2L NC, Afebrile. CBC essentially unremarkable. INR 1.0. Chemistry unremarkable except for creatinine 1.9, previously 1.8 on 01/21/2018. Urine Drug Screen negative. CT Head with no acute findings. Dr. Seay consulted, pt not TPA candidate. CTA Head w/ no acute change. CTA Neck w/ similar findings of carotid stenosis, unchanged. Pt now w/ improved mental status, +residual mild left facial droop. - Diagnosis (1) Encephalopathy (2) CVA (cerebral vascular accident) (3) Chronic pain Review of Systems PAST FAMILY HISTORY: Reviewed. No h/o DM or CAD All other systems reviewed negative except as stated in HPI PMFSH - History History Provided By: Patient, Family Member, Medical Record, Steward/Stewardess Room / EMT - Medical History Medical History: Medical History (Last Reviewed 02/15/18 @ 21:43 by Kenrick Travis) Acid reflux Anxiety Chronic knee pain after total replacement of both knee joints High cholesterol Lack of bladder control Neuropathy - Surgical History Surgical History: Surgical History (Last Reviewed 02/15/18 @ 21:43 by Kenrick Travis) History of implanted electronic device Previous back surgery - Family History Family History: Family History (Last Reviewed 02/15/18 @ 21:01 by Leslye Berrios MD) Other Cancer - Tobacco History Second Hand Smoke Exposure: No Smoking Status: Never smoker - Alcohol History How Often Do You Have a Drink Containing Alcohol: Never - Substance Use History Substance History: No History of Abuse - Travel History Recent Travel in the [place] Within the Last 8 Weeks: No Recent Travel Out of the Country Within the Last 8 Weeks: No - Immunization History Tetanus Immunization: Unsure Hx Influenza Vaccine This Season: No Medications and Allergies Active Medications: Active Medications Sodium Chloride (Ns Inj) 1,000 mls @ 70 mls/hr IV.CONT .[id number] JASIEL Allergies Allergy/AdvReac Type Severity Reaction Status Date / Time morphine AdvReac Severe GI UPSET Verified 02/15/18 21:44 Home Medications Medication Instructions Recorded Confirmed Type Multi Vitamin 1 tab PO DAILY 01/20/18 02/15/18 History buspirone 30 mg PO BID 01/20/18 02/15/18 History calcium citrate 600 mg PO DAILY 01/20/18 02/15/18 History cetirizine 10 mg PO DAILY PRN 01/20/18 02/15/18 History docusate sodium [Stool Softener] 1 cap PO DAILY PRN 01/20/18 02/15/18 History fentanyl citrate (PF) 2,000 mcg IM DIRECTED 01/20/18 02/15/18 History ferrous sulfate [FeroSul] 325 mg PO DAILY 01/20/18 02/15/18 History gabapentin 600 mg PO TID 01/20/18 02/15/18 History glucosamine sulfate 1 mg PO DAILY 01/20/18 02/15/18 History ketoconazole 1 applic TOPICAL BID PRN 01/20/18 02/15/18 History lovastatin 40 mg PO BID 01/20/18 02/15/18 History mirabegron [Myrbetriq] 50 mg PO HS 01/20/18 02/15/18 History omeprazole 20 mg PO DAILY 01/20/18 02/15/18 History paroxetine HCl 10 mg PO DAILY 01/20/18 02/15/18 History vitamin B complex 1 tab PO DAILY 01/20/18 02/15/18 History Exam Vital signs: Vital Signs 02/15/18 20:33 02/15/18 20:35 02/15/18 20:43 Temperature 97.4 F L Pulse Rate 88 Respiratory Rate 18 Blood Pressure 139/85 Pulse Oximetry 96 100 100 02/15/18 21:44 Temperature Pulse Rate Respiratory Rate Blood Pressure Pulse Oximetry 99 Intake & Output 02/15/18 02/15/18 02/16/18 06:59 18:59 06:59 Weight 100.5 kg Narrative: PE: GENERAL: Very pleasant elderly white male in no acute distress. at bedside SKIN: Focused skin assessment warm and dry. HEENT: PERRLA, EOMI. No scleral icterus or conjunctival pallor. No lid lag. Mild left facial droop. CARDIOVASCULAR: Regular rate and rhythm. No obvious murmurs to auscultation. No chest tenderness to palpation. RESPIRATORY: No obvious rhonchi or wheezing. Clear to auscultation. Breath sounds equal bilaterally. GASTROINTESTINAL: Abdomen soft, non-tender, nondistended. BS normal. MUSCULOSKELETAL: Extremities without clubbing, cyanosis, or edema. No obvious deformities. NEUROLOGICAL: Awake, alert and oriented x4. No focal neurologic deficits. Strength 5/5 all extremities. Moving both upper and lower extremities spontaneously. PSYCHIATRIC: Appropriate mood and affect. Insight and judgment normal. Results - Labs CBC & Chem 7: 02/15/18 20:35 Labs: Short CBC 02/15/18 Range/Units 20:35 WBC 7.6 (4.0-11.0) th/mm3 Hgb 11.0 L (13.0-17.0) gm/dL Hct 32.9 L (39.0-51.0) % Plt Count 165 D (150-450) th/mm3 Cardiac Enzymes 02/15/18 Range/Units 20:35 Total Creatine Kinase 48 (39-308) U/L Troponin I Less than 0.02 L (0.02-0.05) ng/mL - Imaging Impressions Chest X-Ray 02/15/18 20:38 CONCLUSION: No acute cardiopulmonary disease. Head CT 02/15/18 20:38 CONCLUSION: 1. Stable negative noncontrast head CT. Report was called by [Dr Esquivel to Dr Berrios at 20:58 ] Head CTA 02/15/18 20:38 CONCLUSION: 1. The CTA remains unremarkable in appearance from the prior study performed 3 days ago for a large imaging. Neck CTA 02/15/18 20:38 CONCLUSION: 1. Atherosclerotic plaque again noted at both carotid bifurcations with focal short segment mild to moderate stenosis at the origin of the left internal carotid artery approximately 50%. There is focal narrowing involving the proximal right internal carotid artery measuring less than 50% diameter. This does not appear significantly changed. 2. The vertebral arteries remain patent with dominant right vertebral artery. Caprini VTE Risk Assessment Caprini VTE Risk Assessment: No/Low Risk (score <= 1) Caprini Risk Assessment Model: Point Value = 1 Point Value = 2 Point Value = 3 Point Value = 5 Age 41-60 Minor surgery BMI > 25 kg/m2 Swollen legs Varicose veins or History of unexplained or recurrent spontaneous Oral contraceptives or hormone replacement Sepsis (< 1 month) Serious lung disease, including pneumonia (< 1 month) Abnormal pulmonary function Acute myocardial infarction Congestive heart failure (< 1 month) History of inflammatory bowel disease Medical patient at bed rest Age 61-74 Arthroscopic surgery Major open surgery (> 45 min) Laparoscopic surgery (> 45 min) Malignancy Confined to bed (> 72 hours) Immobilizing plaster cast Central venous access Age >= 75 History of VTE Family history of VTE Factor V Leiden Prothrombin [id number] Lupus anticoagulant Anticardiolipin antibodies Elevated serum homocysteine Heparin-induced thrombocytopenia Other congenital or acquired thrombophilia Stroke (< 1 month) Elective arthroplasty Hip, pelvis, or leg fracture Acute spinal cord injury (< 1 month) Prophylaxis Regimen: Total Risk Factor Score Risk Level Prophylaxis Regimen 0-1 Low Early ambulation 2 Moderate Order ONE of the following: *Sequential Compression Device (SCD) *Heparin 5000 units SQ BID 3-4 Higher Order ONE of the following medications: *Heparin 5000 units SQ TID *Enoxaparin/Lovenox 40 mg SQ daily (WT < 150 kg, CrCl > 30 mL/min) *Enoxaparin/Lovenox 30 mg SQ daily (WT < 150 kg, CrCl > 10-29 mL/min) *Enoxaparin/Lovenox 30 mg SQ BID (WT < 150 kg, CrCl > 30 mL/min) AND/OR *Sequential Compression Device (SCD) 5 or more Highest Order ONE of the following medications: *Heparin 5000 units SQ TID (Preferred with Epidurals) *Enoxaparin/Lovenox 40 mg SQ daily (WT < 150 kg, CrCl > 30 mL/min) *Enoxaparin/Lovenox 30 mg SQ daily (WT < 150 kg, CrCl > 10-29 mL/min) *Enoxaparin/Lovenox 30 mg SQ BID (WT < 150 kg, CrCl > 30 mL/min) AND *Sequential Compression Device (SCD) Assessment and Plan - Assessment (1) Encephalopathy Code(s): G93.40 - Encephalopathy, unspecified Status: Acute (2) CVA (cerebral vascular accident) Code(s): I63.9 - Cerebral infarction, unspecified Status: Acute (3) Chronic pain Code(s): G89.29 - Other chronic pain Status: Acute - Plan A/P: 1. Encephalopathy: acute episode of unresponsiveness/confusion, pt w/ no recollection of events, now w/ left facial droop, ?seizure vs CVA. CT Head w/ no acute findings, images reviewed. Check U/a to eval for possible UTI. Neuro checks. Check EEG for possible seizure activity. 2. CVA: Left facial droop following episode of unresponsiveness, recent admit 01/20-01/22/18 w/ extensive work up after syncope, CT Head/MRI negative, Carotid US w/ mild plaque bilateral ICA and vertebral artery stenosis w/ antegrade flow right vertebral, recommendation for ASA 81mg, following w/ Neurology as outpatient, multiple labs/imaging done this week per . Also following w/ Dr. Navarro for further cardiac eval of syncope, CT Head negative, CTA Head/ Neck w/ no acute changes. Dr. Seay consulted. Continue ASA. NPO, IVF, HOB flat, Speech/PT/OT eval. 3. Chronic Pain: s/p Fentanyl Pain Pump Implantation, has medication at bedside, will hold off on administration of home medications in order to closely monitor neuro status. IV analgesics as needed for pain control. Pt and are agreeable to this. 4. DVT Prophylaxis: SCD/Teds 5. Social work for d/c planning as needed 6. Case discussed w/ ER physician at length, labs/records/imaging reviewed by me.
[2018-02-15 22:47] LABS: Amphetamine Screen,Urine Neg (Neg); Barbiturate Screen,Urine Neg (Neg); Cannabinoid Screen,Urine Neg (Neg); Cocaine Screen,Urine Neg (Neg)
[2018-02-15 22:53] LABS: Opiate Screen,Urine Neg (Neg)
[2018-02-15 23:04] LABS: Bilirubin,Urine Negative (Negative); Clarity,Urine Clear (Clear); Color,Urine Yellow (Yellw/Straw); Glucose,Urine (UA) Negative (Negative); Hyaline Casts,Urine 1 /lpf (0-3); Leukocyte Esterase,Urine Negative (Negative); Nitrite,Urine Negative (Negative); Specific Gravity,Urine 1.026 (1.002-1.035); Squamous Epithelial Cell,Urine <1 /hpf (0-5)
[2018-02-15] MEDS: HYDROmorphone PF Inj 2 MG/ML Vial IV.PUSH PRN (23:29)
[2018-02-16] MEDS: HYDROmorphone PF Inj 2 MG/ML Vial IV.PUSH PRN ×4 (03:17→19:02)
[2018-02-16 06:03] LABS: Chol/HDL Ratio 3.02 Ratio
[2018-02-16] MEDS: Insulin NovoLOG Aspart Correctional Sugar Inj SQ SCH ×4 (08:55→21:36)
[2018-02-16] MEDS: Aspirin 325 MG Tablet PO SCH (08:56)
--- NOTE | 2018-02-16 13:01 | MG ---
cc: Hossein Iniguez MD, PhD TECHNIQUE: This is a 17-channel EEG. DESCRIPTION: The background rhythm is symmetrical alpha frequency, 8 Hz. During drowsiness, there is slowing in the theta range. No lateralizing features. No epileptiform discharges present. Photic stimulation was done with a normal driving response. INTERPRETATION: Normal EEG. Hossein Iniguez MD, PhD SILVIA/pam , 12:49 PM , 12:55 PM
--- NOTE | 2018-02-16 15:27 | MR ---
EXAM DATE: 02/16/2018 3:18 PM EDT AGE/SEX: 77 years / Male INDICATIONS: . Left sided facial droop. CLINICAL DATA: This is the patient's subsequent encounter. Patient reports that signs and symptoms h ave been present for 2 days and indicates a pain score of 0/10. MEDICAL/SURGICAL HISTORY: Hypercholesterolemia. acid reflux . total knee replacement, synchrom ed II medtronic pain pump COMPARISON: [facility], MR HEAD W & W/O CONTRAST, 01/22/2018. . TECHNIQUE: Multiplanar, multisequence examination of the brain was performed without contrast. FINDINGS: Cerebrum: The ventricles are stable. No evidence of midline shift, mass lesion, hemorrhage or acute infarction. No extraaxial fluid collections are seen. The pituitary gland and suprasellar cistern are normal in configuration. White Matter: Scattered T2 hyperintensities are again noted throughout the cerebral white matter. Posterior Fossa: The cerebellum and brainstem are intact. The 4th ventricle is midline. The cerebel lopontine angle is unremarkable. The cerebellar tonsils are normal in position. Diffusion Imaging: No focal areas of restricted diffusion are seen. No evidence of acute infarction . Extracranial: The visualized portions of the orbits and paranasal sinuses are unremarkable. CONCLUSION: 1. No evidence of acute infarct, hemorrhage, mass or edema. 2. Cerebral white matter disease characteristic of mild chronic ischemic white matter changes. No si gnificant change since prior study. Electronically signed by: James Milligan MD 02/16/2018 3:25 PM EDT
--- NOTE | 2018-02-16 16:29 | P.PNIM ---
Subjective Interval history: Follow-up syncope, possible CVA. Patient lying in bed complaining of lower back pain which she is currently receiving fentanyl from the pain pump which was just implanted recently. Patient states that he usually get a bolus of fentanyl at home through his machine. Patient stated lower back pain radiated to his bottom and his legs. He rated his pain at 8 out of 10 scale and stated relieved with a bolus fentanyl. Patient stated he had a little bit confusion which is progressively worsening, he states that he is losing his thoughts 6-7 months ago and is worsening. Patient also stated left lower extremity weakness. No deficit in upper extremity, denies any garbled speech, denies any headache or dizziness. Patient stated he is eating well denies any nausea or vomiting and had a good bowel movement yesterday. Patient also admitted drinking 2 glasses of wine every night. Physical Exam Vital signs: Vital Signs 02/15/18 20:33 02/15/18 20:35 02/15/18 20:40 Temperature 97.4 F L Pulse Rate 88 82 Respiratory Rate 18 18 Blood Pressure 139/85 121/71 Pulse Oximetry 96 100 97 02/15/18 20:43 02/15/18 21:00 02/15/18 21:44 Temperature Pulse Rate 80 Respiratory Rate 18 Blood Pressure 123/68 Pulse Oximetry 100 97 99 02/15/18 22:00 02/15/18 23:00 02/16/18 00:00 Temperature 97.6 F Pulse Rate 78 78 66 Respiratory Rate 18 18 19 Blood Pressure 121/74 135/67 132/61 Pulse Oximetry 99 99 94 L 02/16/18 03:50 02/16/18 04:00 02/16/18 07:50 Temperature 97.3 F L 97.2 F L Pulse Rate 79 82 68 Respiratory Rate 18 14 Blood Pressure 143/74 H 191/94 H Pulse Oximetry 94 L 94 L 02/16/18 13:18 Temperature 97.9 F Pulse Rate 96 H Respiratory Rate 16 Blood Pressure 139/83 Pulse Oximetry 96 Intake & Output 02/15/18 02/16/18 02/16/18 18:59 06:59 18:59 Intake Total 0 / 0 800 / 800 Balance 0 / 0 800 / 800 Weight 106.594 kg Intake: IV 800 / 800 NS Inj 1,000 ML @ 70 mls/hr IV. 800 / 800 CONT .[id number] [facility] Rx#:[id number] Oral 0 / 0 Other: # Voids 0 Date of Last Bowel Movement 02/15/18 02/15/18 Weight On Admission 100.5 kg Narrative: GENERAL: Well-developed, well-nourished, alert and oriented 3, with no apparent distress SKIN: Warm and dry. Multiple ecchymosis on upper arms bilaterally, right forearm skin tears dressed, surgical incision on left lower chest and left upper back with stitches and dressing with no signs of infection HEAD: Atraumatic. Normocephalic. EYES: Pupils equal and round. No scleral icterus. No injection or drainage. Periorbital edema noted, very slight facial droop noted ENT: No nasal bleeding or discharge. Mucous membranes pink and moist. NECK: Trachea midline. No JVD. CARDIOVASCULAR: Regular rate and rhythm. RESPIRATORY: No accessory muscle use. Clear to auscultation. Breath sounds equal bilaterally. GASTROINTESTINAL: Abdomen obese, soft, non-tender, nondistended. Hepatic and splenic margins not palpable. MUSCULOSKELETAL: Extremities without clubbing, cyanosis, or edema. With left lower extremity weaker than the right , no obvious deformities. NEUROLOGICAL: Awake and alert. No obvious cranial nerve deficits. Motor grossly within normal limits. Five out of 5 muscle strength in the arms and legs. Normal speech. PSYCHIATRIC: Appropriate mood and affect; insight and judgment normal. Results - Labs CBC & Chem 7: 02/15/18 20:35 Laboratory Results - last 24 hr 02/15/18 02/15/18 02/15/18 20:35 20:35 20:35 WBC 7.6 RBC 3.31 L Hgb 11.0 L POC Hgb (Calc) 11.2 L Hct 32.9 L POC Hct 33.0 L MCV 99.4 MCH 33.1 MCHC 33.3 RDW 14.8 Plt Count 165 D MPV 9.2 Neut % (Auto) 60.5 Lymph % (Auto) 30.0 Thayer % (Auto) 5.9 Eos % (Auto) 2.6 Baso % (Auto) 1.0 Neut # (Auto) 4.6 Lymph # (Auto) 2.3 Thayer # (Auto) 0.5 Eos # (Auto) 0.2 Baso # (Auto) 0.1 WBC Differential . Differential Comment Auto diff final PT 9.8 INR 1.0 APTT 21.7 L Fibrinogen 322 POC Sodium 141 POC Potassium 4.1 POC Chloride 108 POC BUN 24 H POC Creatinine 1.9 H POC Glucose 134 H Total Creatine Kinase 48 Troponin I Less than 0.02 L Triglycerides Cholesterol LDL Cholesterol, Calc HDL Cholesterol Cholesterol/HDL Ratio Urine Color Urine Clarity Urine pH Ur Specific [place] Urine Protein Urine Glucose (UA) Urine Ketones Urine Occult Blood Urine Nitrate Urine Bilirubin Urine Urobilinogen Ur Leukocyte Esterase Urine RBC Urine WBC Ur Squamous Epith Cells Hyaline Casts Micro UA Comment Ur Microscopic Review Urine Culture Comments Urine Opiates Screen Ur Barbiturates Screen Ur Amphetamines Screen U Benzodiazepines Scrn Urine Cocaine Screen U Cannabinoids Screen Blood Type Antibody Screen 02/15/18 02/15/18 02/15/18 20:35 21:53 22:00 WBC RBC Hgb POC Hgb (Calc) Hct POC Hct MCV MCH MCHC RDW Plt Count MPV Neut % (Auto) Lymph % (Auto) Thayer % (Auto) Eos % (Auto) Baso % (Auto) Neut # (Auto) Lymph # (Auto) Thayer # (Auto) Eos # (Auto) Baso # (Auto) WBC Differential Differential Comment PT INR APTT Fibrinogen POC Sodium POC Potassium POC Chloride POC BUN POC Creatinine POC Glucose Total Creatine Kinase Troponin I Triglycerides Cholesterol LDL Cholesterol, Calc HDL Cholesterol Cholesterol/HDL Ratio Urine Color Yellow Urine Clarity Clear Urine pH 5.0 Ur Specific [place] 1.026 Urine Protein 30 H Urine Glucose (UA) Negative Urine Ketones Negative Urine Occult Blood Negative Urine Nitrate Negative Urine Bilirubin Negative Urine Urobilinogen Less than 2 Ur Leukocyte Esterase Negative Urine RBC Less than 1 Urine WBC 1 Ur Squamous Epith Cells <1 Hyaline Casts 1 Micro UA Comment Cath-culture not ind Ur Microscopic Review Not Reportable Urine Culture Comments Cath-cult not ind Urine Opiates Screen Neg Ur Barbiturates Screen Neg Ur Amphetamines Screen Neg U Benzodiazepines Scrn Neg Urine Cocaine Screen Neg U Cannabinoids Screen Neg Blood Type O Positive Antibody Screen Negative 02/16/18 02/16/18 02/16/18 03:55 07:42 13:38 WBC RBC Hgb POC Hgb (Calc) Hct POC Hct MCV MCH MCHC RDW Plt Count MPV Neut % (Auto) Lymph % (Auto) Thayer % (Auto) Eos % (Auto) Baso % (Auto) Neut # (Auto) Lymph # (Auto) Thayer # (Auto) Eos # (Auto) Baso # (Auto) WBC Differential Differential Comment PT INR APTT Fibrinogen POC Sodium POC Potassium POC Chloride POC BUN POC Creatinine POC Glucose 90 83 Total Creatine Kinase Troponin I Triglycerides 445 H Cholesterol 203 H LDL Cholesterol, Calc HDL Cholesterol 67.0 H Cholesterol/HDL Ratio 3.02 Urine Color Urine Clarity Urine pH Ur Specific [place] Urine Protein Urine Glucose (UA) Urine Ketones Urine Occult Blood Urine Nitrate Urine Bilirubin Urine Urobilinogen Ur Leukocyte Esterase Urine RBC Urine WBC Ur Squamous Epith Cells Hyaline Casts Micro UA Comment Ur Microscopic Review Urine Culture Comments Urine Opiates Screen Ur Barbiturates Screen Ur Amphetamines Screen U Benzodiazepines Scrn Urine Cocaine Screen U Cannabinoids Screen Blood Type Antibody Screen - Imaging Impressions Chest X-Ray 02/15/18 20:38 CONCLUSION: No acute cardiopulmonary disease. Head CT 02/15/18 20:38 CONCLUSION: 1. Stable negative noncontrast head CT. Report was called by [Dr Esquivel to Dr Berrios at 20:58 ] Head CTA 02/15/18 20:38 CONCLUSION: 1. The CTA remains unremarkable in appearance from the prior study performed 3 days ago for a large imaging. Neck CTA 02/15/18 20:38 CONCLUSION: 1. Atherosclerotic plaque again noted at both carotid bifurcations with focal short segment mild to moderate stenosis at the origin of the left internal carotid artery approximately 50%. There is focal narrowing involving the proximal right internal carotid artery measuring less than 50% diameter. This does not appear significantly changed. 2. The vertebral arteries remain patent with dominant right vertebral artery. Head MRI 02/16/18 00:00 CONCLUSION: 1. No evidence of acute infarct, hemorrhage, mass or edema. 2. Cerebral white matter disease characteristic of mild chronic ischemic white matter changes. No significant change since prior study. Assessment and Plan - Assessment (1) Encephalopathy Code(s): G93.40 - Encephalopathy, unspecified Status: Acute (2) CVA (cerebral vascular accident) Code(s): I63.9 - Cerebral infarction, unspecified Status: Acute (3) Chronic pain Code(s): G89.29 - Other chronic pain Status: Acute (4) Syncope Code(s): R55 - Syncope and collapse Status: Acute (5) PEMA (acute kidney injury) Code(s): N17.9 - Acute kidney failure, unspecified Status: Acute (6) Hyperlipidemia Code(s): E78.5 - Hyperlipidemia, unspecified Status: Acute (7) Hyperlipidemia Code(s): E78.5 - Hyperlipidemia, unspecified Status: Acute (8) Hypertension Code(s): I10 - Essential (primary) hypertension Status: Acute - Plan Patient is a 77-year-old male with a PMH of HTN, Hyperlipidemia, Peripheral Neuropathy and Chronic Pain s/p Pain Pump Implantation who was brought to the ER by EMS for episode of AMS, syncope and unresponsiveness, being evaluated for CVA. possible CVA reported left facial droop on admission, now resolving,recent admission in January 20, 2018 with extensive workup after his syncope -Continue IV fluid -Neurology consulted Dr. Seay -CT of the head with no acute findings -CTA of the head no acute findings -Neck CTA: . Resulted atherosclerotic plaque again noted at both carotid bifurcations with focal short segment mild to moderate stenosis at the origin of the left internal carotid artery approximately 50%. There is focal narrowing involving the proximal right internal carotid artery measuring less than 50% diameter. This does not appear significantly changed. -Head MRI with no significant findings -Continue aspirin and IV fluid -Head MRI with no significant findings -2D Echo pending Metabolic Encephalopathy: acute episode of unresponsiveness/confusion, Possibly secondary to dehydration, overmedication with recent Fentanyl adjustment from pain pump -no evidence of infection, UA negative -Neurochecks Q4 -Imaging studies negative -EEG negative Acute kidney injury -Previous creatinine 1.5 to 06/16/2018, today 1.9 Continue IV fluid - will monitor BMP Avoid nephrotoxin Chronic pain -Status post fentanyl pump implantation, [employer] in today to adjust dose to titrated down -Following with pain management, needs to follow up as outpatient with Dr. Kirk Monitor neuro status continue as needed pain medication prn Hyperlipidemia -continue on statin -Lipid profile noted Hypertension with history of hypertension -Check for orthostatic hypotension -Permissive hypertension -monitor BP DVT prophylaxis: SCD Case Management consult for discharge planning with home health care and physical therapy (4) Syncope Qualifiers: Syncope type: unspecified Qualified Code(s): R55 - Syncope and collapse
--- NOTE | 2018-02-16 16:33 | P.DCO ---
- Diagnosis (1) Syncope - Physical Therapy Order: Evaluate and treat - Home Health Nursing Order: Medical education, Signs/symptoms of disease process - Certification I have seen patient Duke Hallman on 02/16/18. My clinical findings support the need for the requested home health care services because: syncopal episode, fall, deconditioned Deconditioned with increased weakness, Impaired cognition/judgement, High risk of falls I certify that my clinical findings support that this patient is homebound because: Impaired cognitive ability/safety, Unsteady gait/balance (1) Syncope Qualifiers: Syncope type: unspecified Qualified Code(s): R55 - Syncope and collapse
[2018-02-16] MEDS: Sod Chloride 0.9% Inj 1,000 ML IV.CONT SCH (18:07)
[2018-02-16] MEDS: Gabapentin 300 MG Capsule PO SCH (19:02)
[2018-02-16 19:18] LABS: Hemoglobin A1c 5.6 % (4.3-6.0)
[2018-02-16] MEDS ORDERED: Non-Formulary Drug (Lovastatin [Lovastatin] 40 MG) PO SCH (21:00)
[2018-02-16] MEDS ORDERED: Tolterodine Tartrate LA 4 MG Capsule PO SCH (21:00)
--- NOTE | 2018-02-16 22:16 | MB ---
cc: Hossein Iniguez MD, PhD DATE: 02/16/2018 REASON FOR CONSULTATION: Rule out stroke. HISTORY OF PRESENT ILLNESS: Mr. Hallman is a very nice 77-year-old man who was in his usual state of health until yesterday. He suddenly slumped over and lost consciousness. His found him unconscious. He had no warning, no tonic-clonic activity. [facility] came to his aid, felt that he might have been having a stroke and called a stroke alert in the field. He was brought to the ER as a stroke alert. He does have a history in the past of syncope. Apparently, he was unconscious for about 30 minutes. He was noted to have a left facial droop and confusion. He does not recall any of the events. He denies any prior history of stroke or TIA. A CT of the brain in the ER was unremarkable for any acute change and was stable. He also underwent an evaluation with a CT angiogram of the neck, which revealed less than 50% stenosis of the right carotid, approximately 50% stenosis of the left carotid artery. He had a CTA of the brain as well which was within normal limits. His blood sugar was 149. The case was discussed with Dr. Seay, who was network operations analyst last night. The patient was showing improvement and it was felt that he was not a candidate for IV tPA. The patient states he is back to his baseline at the present time. He denied any chest pain or palpitations. PAST MEDICAL HISTORY: History of anxiety, chronic knee pain, hypercholesterolemia, neuropathy, syncopal episodes in the past. CURRENT MEDICATIONS: 1. Aspirin 325 mg daily. 2. BuSpar. 3. Vasotec. 4. Iron sulfate. 5. Neurontin 600 mg t.i.d. 6. Glucagon. 7. Dilaudid p.r.n. 8. Zofran p.r.n. 9. Protonix 20 mg daily. 10. Paxil 10 mg daily. 11. Pravachol 40 mg daily. 12. Detrol long-acting 4 mg daily. NEUROLOGICAL EXAMINATION: VITAL SIGNS: Blood pressure 139/83, pulse 96, respiratory rate 16, temperature 97 degrees. HIGHER CORTICAL FUNCTIONS: Mireya. CRANIAL NERVES: Intact. MOTOR: He has 5/5 strength of all groups in both the upper and lower extremities. There is no drift. Fine motor skills are within normal. His reflexes are symmetric. IMPRESSION: Syncope. There is no evidence of stroke on the MRI of the brain. Transient ischemic attack is a possibility for which I would recommend continuing aspirin, although that would be unlikely to have caused of syncope. Focal seizure or generalized seizure would be in the differential, but less likely. We will get an echocardiogram. Monitor cardiac telemetry to rule out any arrhythmia. I also recommend a cardiology evaluation to rule out arrhythmia as a cause of syncope. We will review the electroencephalogram as well. Hossein Iniguez MD, PhD SILVIA/rashida , 06:37 PM , 06:46 PM
[2018-02-17] MEDS: Sod Chloride 0.9% Inj 1,000 ML IV.CONT SCH (05:15)
[2018-02-17] MEDS ORDERED: Ferrous Sulfate 325 MG Tablet PO SCH (09:00)
[2018-02-17] MEDS ORDERED: Pantoprazole Sodium 20 MG DR Tablet PO SCH (09:00)
[2018-02-17] MEDS: Gabapentin 300 MG Capsule PO SCH (09:12)
[2018-02-17] MEDS: Insulin NovoLOG Aspart Correctional Sugar Inj SQ SCH (09:12)
[2018-02-17] MEDS: Aspirin 325 MG Tablet PO SCH (09:13)
--- NOTE | 2018-02-17 09:15 | P.CONCA ---
History of Present Illness Primary Care Provider: Celestino Aguirre Family Provider: Celestino Aguirre History of Present Illness: Pleasant 77-year-old male with a PMH of HTN, Hyperlipidemia, Peripheral Neuropathy and Chronic Pain s/p Pain Pump Implantation who was brought to the ER by EMS for episode of AMS. According to the patient he had a few glasses of wine after dinner and subsequently was found in the bathroom fallen over and unresponsive. Chart review reveals that he recently had an Echo showing a normal EF and no valvular heart disease. 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 Of not his Cr was mildly elevated at 1.9. CTA was repeated and showed similar findings. He was suppose to see Dr. Navarro today. No history of palpations, CP, premonitory symptoms,family hx of SCD. Patient had a facial droop which has since resolved. 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 - Medical History Medical History: Medical History (Last Reviewed 02/17/18 @ 09:16 by Kwadwo Espinoza) Mahmood esophagus Falls Acid reflux Anxiety Chronic knee pain after total replacement of both knee joints High cholesterol Lack of bladder control Neuropathy - Surgical History Surgical History: Surgical History (Last Reviewed 02/17/18 @ 09:16 by Kwadwo Espinoza) History of implanted electronic device Previous back surgery - Family History Family History: Family History (Last Reviewed 02/15/18 @ 21:01 by Leslye Berrios MD) Other Cancer - Tobacco History Second Hand Smoke Exposure: No Tobacco Use In Past 30 Days: No Smoking Status: Former smoker - Alcohol History How Often Do You Have a Drink Containing Alcohol: 4 or more times a week - Substance Use History Substance History: No History of Abuse - Travel History Recent Travel in the [place] Within the Last 8 Weeks: No Recent Travel Out of the Country Within the Last 8 Weeks: No - Immunization History Tetanus Immunization: <5 Years Hx Influenza Vaccine This Season: Yes Medications and Allergies Active Medications: Active Medications Aspirin (Aspirin) 325 mg PO DAILY [facility] Last Admin: 02/16/18 08:56 Dose: 325 mg Buspirone HCl (Buspar) 30 mg PO BID [facility] Last Admin: 02/16/18 21:32 Dose: 30 mg Dextrose (D50w Vial) 50 ml IV.PUSH UNSCH PRN PRN Reason: PER HYPOGLYCEMIA PROTOCOL Enalaprilat (Vasotec Inj) 1.25 mg IV.PUSH Q4H PRN PRN Reason: For SBP > 220 or DBP > 120 Ferrous Sulfate (Ferosul) 325 mg PO DAILY [facility] Gabapentin (Neurontin) 600 mg PO TID [facility] Last Admin: 02/16/18 19:02 Dose: 600 mg Glucagon (Glucagon Inj) 1 mg OTHER UNSCH PRN PRN Reason: for Hypoglycemia Protocol Hydromorphone HCl (Dilaudid Pf Inj) 1 mg IV.PUSH Q4H PRN PRN Reason: PAIN 6-10 Last Admin: 02/16/18 19:02 Dose: 1 mg Sodium Chloride (Ns Inj) 1,000 mls @ 84 mls/hr IV.CONT .[id number] [facility] Last Admin: 02/17/18 05:15 Dose: 84 mls/hr Insulin Aspart (Novolog Insulin Correctional Sugar Inj) 0 unit SQ ACHS [facility]; Protocol Last Admin: 02/16/18 21:36 Dose: Not Given Miscellaneous (Pill Splitter) 1 each OTHER UNSCH PRN PRN Reason: SEE LABEL COMMENTS Ondansetron HCl (Zofran Inj) 4 mg IV.PUSH Q6H PRN PRN Reason: NAUSEA/VOMITING Last Admin: 02/15/18 23:24 Dose: 4 mg Pantoprazole Sodium (Protonix) 20 mg PO DAILY [facility] Paroxetine HCl (Paxil) 10 mg PO DAILY [facility] Pravastatin Sodium (Pravachol) 40 mg PO HS [facility] Last Admin: 02/16/18 21:32 Dose: 40 mg Sodium Chloride (Ns Flush) 2 ml IV.FLUSH BID [facility] Last Admin: 02/16/18 21:36 Dose: Not Given Sodium Chloride (Ns Flush) 2 ml IV.FLUSH PRN PRN PRN Reason: FLUSH AFTER USING IV ACCESS Tolterodine Tartrate (Detrol La) 4 mg PO HS [facility] Last Admin: 02/16/18 21:32 Dose: 4 mg Allergies Allergy/AdvReac Type Severity Reaction Status Date / Time morphine AdvReac Severe GI UPSET Verified 02/15/18 21:44 Home Medications Medication Instructions Recorded Confirmed Type Multi Vitamin 1 tab PO DAILY 01/20/18 02/15/18 History buspirone 30 mg PO BID 01/20/18 02/15/18 History calcium citrate 600 mg PO DAILY 01/20/18 02/15/18 History cetirizine 10 mg PO DAILY PRN 01/20/18 02/15/18 History docusate sodium [Stool Softener] 1 cap PO DAILY PRN 01/20/18 02/15/18 History fentanyl citrate (PF) 2,000 mcg IM DIRECTED 01/20/18 02/15/18 History ferrous sulfate [FeroSul] 325 mg PO DAILY 01/20/18 02/15/18 History gabapentin 600 mg PO TID 01/20/18 02/15/18 History glucosamine sulfate 1 mg PO DAILY 01/20/18 02/15/18 History ketoconazole 1 applic TOPICAL BID PRN 01/20/18 02/15/18 History lovastatin 40 mg PO BID 01/20/18 02/15/18 History mirabegron [Myrbetriq] 50 mg PO HS 01/20/18 02/15/18 History omeprazole 20 mg PO DAILY 01/20/18 02/15/18 History paroxetine HCl 10 mg PO DAILY 01/20/18 02/15/18 History vitamin B complex 1 tab PO DAILY 01/20/18 02/15/18 History Exam Vital signs: Vital Signs 02/16/18 13:18 02/16/18 15:56 02/16/18 18:20 Temperature 97.9 F 98.1 F Pulse Rate 96 H 87 Respiratory Rate 16 16 Blood Pressure 139/83 186/93 H Pulse Oximetry 96 94 L 95 02/16/18 19:18 02/16/18 19:45 02/16/18 19:48 Temperature Pulse Rate 80 Respiratory Rate 17 Blood Pressure Pulse Oximetry 95 02/16/18 20:00 02/16/18 23:59 02/17/18 04:00 Temperature 98.5 F 98.3 F 98.2 F Pulse Rate 79 72 72 Respiratory Rate 20 20 20 Blood Pressure 163/80 H 153/83 H 166/77 H Pulse Oximetry 97 95 96 02/17/18 07:38 Temperature 97.9 F Pulse Rate 91 H Respiratory Rate 12 Blood Pressure 118/73 Pulse Oximetry Intake & Output 02/16/18 02/17/18 02/17/18 18:59 06:59 18:59 Intake Total 800 / 800 1240 / 1240 Balance 800 / 800 1240 / 1240 Intake: IV 800 / 800 1000 / 1000 NS Inj 1,000 ML @ 84 mls/hr IV. 800 / 800 1000 / 1000 CONT .[id number] [facility] Rx#:[id number] Oral 240 / 240 Other: # Voids 5 Date of Last Bowel Movement 02/15/18 02/15/18 - Constitutional no acute distress - Routine HEENT Exam Head: Present: normocephalic Eye: Present: EOMI, PERRL ENT: Present: mucous membranes moist - Routine Neck Exam Present: supple. Absent: JVD - Routine Respiratory Exam Present: CTA bilaterally - Routine Cardiovascular Exam Present: RRR, S1, S2. Absent: murmur - Routine Abdominal Exam Present: soft, normoactive bowel sounds. Absent: tenderness - Routine Extremities Exam Absent: edema - Routine Skin Exam Present: ecchymosis - Routine Neurological Exam Present: alert, oriented X3, CN II-XII intact (grossly intact) Results 02/15/18 20:35 Intake and Output 02/16/18 02/17/18 02/17/18 22:59 06:59 14:59 Intake Total 1240 / 1240 Balance 1240 / 1240 Intake: IV 1000 / 1000 NS Inj 1,000 ML @ 84 mls/hr IV. 1000 / 1000 CONT .[id number] [facility] Rx#:[id number] Oral 240 / 240 Other: # Voids 5 Date of Last Bowel Movement 02/15/18 Assessment and Plan - Plan Syncope- multifactorial etiology. Likely vasovagal in etiology (pain pump, ETOH abuse, while in the bathroom). He had a recent workup for syncope including TTE showing normal EF and no valvular HD. He has stable Carotid Stenosis. He will follow up with Dr. Navarro as an outpatient. I counseled the patient on ETOH use.Given very recent echo I do not think we need to repeat one today. I will defer further Neuro workup to the primary team. Thank you for allowing me to participate, please contact me with any further questions.
--- NOTE | 2018-02-17 13:56 | ECG ---
Date Performed: 02/16/2018 Time Performed: 12:23:34 PTAGE: 77 years EKG: Sinus rhythm WITH OCCASIONAL VENTRICULAR PREMATURE COMPLEXES POSSIBLE LEFT ATRIAL ENLARGEMENT MARKED LEFT AXIS DE VIATION RIGHT BUNDLE BRANCH BLOCK POSSIBLE SEPTAL MYOCARDIAL INFARCTION ABNORMAL ECG Since the PREVIOUS TRACING , no significant change noted PREVIOUS TRACIN01/20/2018 21.36 DOCTOR: Hemant Gaspar Interpretating Date/Time 02/17/2018 13:54:52
--- NOTE | 2018-02-17 15:07 | P.PN ---
Subjective Interval history: Patient is seen lying in bed. His is with him. He reports that he is feeling well with no incidence of dizziness, syncope or weakness. He is concerned about pain and is scheduling an appointment to follow-up with his pain management doctor. No chest pain or shortness of breath. No nausea vomiting or diarrhea. He is tolerating his meals. Physical Exam Vital signs: Vital Signs 02/16/18 15:56 02/16/18 18:20 02/16/18 19:18 Temperature 98.1 F Pulse Rate 87 80 Respiratory Rate 16 Blood Pressure 186/93 H Pulse Oximetry 94 L 95 02/16/18 19:45 02/16/18 19:48 02/16/18 20:00 Temperature 98.5 F Pulse Rate 79 Respiratory Rate 17 20 Blood Pressure 163/80 H Pulse Oximetry 95 97 02/16/18 23:59 02/17/18 04:00 02/17/18 07:38 Temperature 98.3 F 98.2 F 97.9 F Pulse Rate 72 72 91 H Respiratory Rate 20 20 12 Blood Pressure 153/83 H 166/77 H 118/73 Pulse Oximetry 95 96 02/17/18 11:50 Temperature 97.5 F L Pulse Rate 92 H Respiratory Rate 12 Blood Pressure 165/92 H Pulse Oximetry 96 Intake & Output 02/16/18 02/17/18 02/17/18 18:59 06:59 18:59 Intake Total 800 / 800 1240 / 1240 Balance 800 / 800 1240 / 1240 Intake: IV 800 / 800 1000 / 1000 NS Inj 1,000 ML @ 84 mls/hr IV. 800 / 800 1000 / 1000 CONT .[id number] [facility] Rx#:[id number] Oral 240 / 240 Other: # Voids 5 Date of Last Bowel Movement 02/15/18 02/15/18 Narrative: GENERAL: Well-nourished, well-developed adult male in no obvious distress. SKIN: Warm and dry. Multiple ecchymosis on upper arms bilaterally, right forearm skin tears dressed, surgical incision on left lower chest and left upper back with stitches and dressing with no signs of infection HEAD: Atraumatic. Normocephalic. CARDIOVASCULAR: Regular rate and rhythm. RESPIRATORY: No accessory muscle use. Clear to auscultation. Breath sounds equal bilaterally. GASTROINTESTINAL: Abdomen soft, non-tender, distended. Positive bowel sounds. MUSCULOSKELETAL: Extremities without clubbing, cyanosis, or edema. No obvious deformities. NEUROLOGICAL: Awake and alert. No obvious cranial nerve deficits. Motor grossly within normal limits. Normal speech. PSYCHIATRIC: Appropriate mood and affect; insight and judgment good. Results - Labs CBC & Chem 7: 02/15/18 20:35 Laboratory Results - last 24 hr 02/16/18 02/16/18 02/16/18 03:55 18:43 20:42 POC Glucose 100 102 Hemoglobin A1c 5.6 02/17/18 07:20 POC Glucose 92 Hemoglobin A1c - Imaging Impressions Head MRI 02/16/18 00:00 CONCLUSION: 1. No evidence of acute infarct, hemorrhage, mass or edema. 2. Cerebral white matter disease characteristic of mild chronic ischemic white matter changes. No significant change since prior study. Assessment and Plan - Assessment (1) Encephalopathy Code(s): G93.40 - Encephalopathy, unspecified Status: Acute (2) CVA (cerebral vascular accident) Code(s): I63.9 - Cerebral infarction, unspecified Status: Acute (3) Chronic pain Code(s): G89.29 - Other chronic pain Status: Acute (4) Syncope Code(s): R55 - Syncope and collapse Status: Acute (5) PEMA (acute kidney injury) Code(s): N17.9 - Acute kidney failure, unspecified Status: Acute (6) Hyperlipidemia Code(s): E78.5 - Hyperlipidemia, unspecified Status: Acute (7) Hyperlipidemia Code(s): E78.5 - Hyperlipidemia, unspecified Status: Acute (8) Hypertension Code(s): I10 - Essential (primary) hypertension Status: Acute - Plan Patient is a 77-year-old male with a PMH of HTN, Hyperlipidemia, Peripheral Neuropathy and Chronic Pain s/p Pain Pump Implantation who was brought to the ER by EMS for episode of AMS, syncope and unresponsiveness, being evaluated for CVA. possible CVA reported left facial droop on admission, now resolving,recent admission in January 20, 2018 with extensive workup after his syncope -Stop IV fluid -Neurology consulted Dr. Seay -CT of the head with no acute findings -CTA of the head no acute findings -Neck CTA: . Resulted atherosclerotic plaque again noted at both carotid bifurcations with focal short segment mild to moderate stenosis at the origin of the left internal carotid artery approximately 50%. There is focal narrowing involving the proximal right internal carotid artery measuring less than 50% diameter. This does not appear significantly changed. -Head MRI with no significant findings -2D Echo pending -canceled by cardiology Metabolic Encephalopathy: acute episode of unresponsiveness/confusion, Possibly secondary to dehydration, overmedication with recent Fentanyl adjustment from pain pump -no evidence of infection, UA negative -Neurochecks Q4 -Imaging studies negative -EEG negative Acute kidney injury; likely secondary to dehydration -Previous creatinine 1.5 to 06/16/2018, today 1.9 - will monitor BMP Avoid nephrotoxin Chronic pain -Status post fentanyl pump implantation, [employer] in today to adjust dose to titrated down -Following with pain management, needs to follow up as outpatient with Dr. Kirk Monitor neuro status continue as needed pain medication prn Hyperlipidemia -continue on statin -Lipid profile noted Hypertension with history of hypertension -Check for orthostatic hypotension -Permissive hypertension -monitor BP DVT prophylaxis: SCD Case Management consult for discharge planning with home health care and physical therapy (4) Syncope Qualifiers: Syncope type: unspecified Qualified Code(s): R55 - Syncope and collapse
--- NOTE | 2018-02-17 15:15 | P.DS ---
Date of admission: 02/15/18 21:49 Primary care physician: Celestino Aguirre Attending physician on discharge: Oscar Gaxiola Anticipated date of discharge: 02/17/18 Brief History from admission: This is a 77-year-old male with a PMH of HTN, Hyperlipidemia, Peripheral Neuropathy and Chronic Pain s/p Pain Pump Implantation who was brought to the ER by EMS for episode of AMS. 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 states pt has been seen by Neurologist, Dr. Cortez, since discharge and had multiple imaging procedures and lab work done this week. states pt was doing well today, had gotten up to go to the bathroom w/ his walker when she heard a loud noise. States she found patient "not looking right " and tried to assist him on his walker when he "just slumped over" and was unresponsive. notes no seizure-like activity, states episode lasted approx 30min until EMS arrived. Noted to have significant confusion and left facial droop. Pt w/ no recollection of any events. On arrival, BP 139/85, HR 88, O2 sat 96% on 2L NC, Afebrile. CBC essentially unremarkable. INR 1.0. Chemistry unremarkable except for creatinine 1.9, previously 1.8 on 01/21/2018. Urine Drug Screen negative. CT Head with no acute findings. Dr. Seay consulted, pt not TPA candidate. CTA Head w/ no acute change. CTA Neck w/ similar findings of carotid stenosis, unchanged. Pt now w/ improved mental status, +residual mild left facial droop. DS: Diagnosis - Discharge Diagnosis (1) Encephalopathy Status: Resolved (2) CVA (cerebral vascular accident) Status: Resolved (3) Chronic pain Status: Chronic (4) Syncope Status: Resolved (5) PEMA (acute kidney injury) Status: Resolved (6) Hyperlipidemia Status: Chronic (7) Hyperlipidemia Status: Chronic (8) Hypertension Status: Chronic DS: Summary Hospital Course: Patient is a 77-year-old male with a PMH of HTN, Hyperlipidemia, Peripheral Neuropathy and Chronic Pain s/p Pain Pump Implantation who was brought to the ER by EMS for episode of AMS, syncope and unresponsiveness, being evaluated for CVA. Left-sided facial droop noted on admission resolved; no residual weakness noted. Neurology was consulted -imaging of the head indicated no acute findings. TPA was not indicated. Suspected metabolic Encephalopathy: acute episode of unresponsiveness/confusion, possibly secondary to dehydration, and overmedication with recent Fentanyl adjustment from pain pump. Patient to follow-up with outpatient pain management. - Time Spent with Patient Total time spent providing and/or coordinating discharge services: Less than 30 minutes - Quality: Stroke Last date observed well: 02/15/18 Last time observed well: 19:45 - Quality: VTE Deep Vein Thrombosis/Pulmonary Embolism Present on Admission: No Exam Vital signs: Vital Signs 02/16/18 15:56 02/16/18 18:20 02/16/18 19:18 Temperature 98.1 F Pulse Rate 87 80 Respiratory Rate 16 Blood Pressure 186/93 H Pulse Oximetry 94 L 95 02/16/18 19:45 02/16/18 19:48 02/16/18 20:00 Temperature 98.5 F Pulse Rate 79 Respiratory Rate 17 20 Blood Pressure 163/80 H Pulse Oximetry 95 97 02/16/18 23:59 02/17/18 04:00 02/17/18 07:38 Temperature 98.3 F 98.2 F 97.9 F Pulse Rate 72 72 91 H Respiratory Rate 20 20 12 Blood Pressure 153/83 H 166/77 H 118/73 Pulse Oximetry 95 96 02/17/18 11:50 Temperature 97.5 F L Pulse Rate 92 H Respiratory Rate 12 Blood Pressure 165/92 H Pulse Oximetry 96 Intake & Output 02/16/18 02/17/18 02/17/18 18:59 06:59 18:59 Intake Total 800 / 800 1240 / 1240 Balance 800 / 800 1240 / 1240 Intake: IV 800 / 800 1000 / 1000 NS Inj 1,000 ML @ 84 mls/hr IV. 800 / 800 1000 / 1000 CONT .[id number] [facility] Rx#:[id number] Oral 240 / 240 Other: # Voids 5 Date of Last Bowel Movement 02/15/18 02/15/18 Narrative: GENERAL: Well-nourished, well-developed adult male in no obvious distress. SKIN: Warm and dry. Multiple ecchymosis on upper arms bilaterally, right forearm skin tears dressed, surgical incision on left lower chest and left upper back with stitches and dressing with no signs of infection HEAD: Atraumatic. Normocephalic. CARDIOVASCULAR: Regular rate and rhythm. RESPIRATORY: No accessory muscle use. Clear to auscultation. Breath sounds equal bilaterally. GASTROINTESTINAL: Abdomen soft, non-tender, distended. Positive bowel sounds. MUSCULOSKELETAL: Extremities without clubbing, cyanosis, or edema. No obvious deformities. NEUROLOGICAL: Awake and alert. No obvious cranial nerve deficits. Motor grossly within normal limits. Normal speech. PSYCHIATRIC: Appropriate mood and affect; insight and judgment good. Results Procedures completed during hospitalization: none Labs on day of discharge: Labs from last 24 hours 02/17/18 02/16/18 02/16/18 07:20 20:42 18:43 POC Glucose 92 102 100 Hemoglobin A1c 02/16/18 03:55 POC Glucose Hemoglobin A1c 5.6 - Impressions ITS Impressions Chest X-Ray 02/15/18 20:38 CONCLUSION: No acute cardiopulmonary disease. Head CT 02/15/18 20:38 CONCLUSION: 1. Stable negative noncontrast head CT. Report was called by [Dr Esquivel to Dr Berrios at 20:58 ] Head CTA 02/15/18 20:38 CONCLUSION: 1. The CTA remains unremarkable in appearance from the prior study performed 3 days ago for a large imaging. Neck CTA 02/15/18 20:38 CONCLUSION: 1. Atherosclerotic plaque again noted at both carotid bifurcations with focal short segment mild to moderate stenosis at the origin of the left internal carotid artery approximately 50%. There is focal narrowing involving the proximal right internal carotid artery measuring less than 50% diameter. This does not appear significantly changed. 2. The vertebral arteries remain patent with dominant right vertebral artery. Head MRI 02/16/18 00:00 CONCLUSION: 1. No evidence of acute infarct, hemorrhage, mass or edema. 2. Cerebral white matter disease characteristic of mild chronic ischemic white matter changes. No significant change since prior study. Discharge Plan - Discharge Disposition Patient Disposition: W/Home Health Service - Discharge Condition Condition: Stable - Discharge Order Discharge Orders: Discharge Order (Routine); Ordered 02/17/18 Ordered By: Jolene Houser - Physicians Team Primary Care Provider: Celestino Aguirre Attending Provider: Oscar Gaxiola Other Providers: Daiana Seay MD ; Hossein Iniguez MD, PhD ; Adrian Blanco DO
[2018-02-17 16:11] LABS: Calcium 8.9 mg/dL (8.5-10.1); Carbon Dioxide 27.1 meq/L (21.0-32.0); Potassium 3.5 meq/L (3.5-5.1)
== END 2018-02-17 15:40 | disposition home health service (06) ==
LOC: NEPE 20:33 → NEDA 21:49 → NEPGCP 23:47
PROVIDERS: ADMIT Hospitalist; ATTEND Hospitalist